=== PATIENT | female | born 1980 | race Caucasian/White ===

== ENCOUNTER 2017-01-05 21:48 | Emergency (ER) | payer BC, MEDICAID ==
[~2017-01-05] VITALS: Ht 154.9 cm; Wt 68.8 kg
[~2017-01-05 21:48] MED LIST: AMIT25TA9 PO; APIDINJ SQ; CHOL50006 PO; CLAR10CA3 PO; DICL1GEL TOPICAL; DICL1GEL7 TOPICAL; GABA300C5 PO; LACTCAP8 PO; META800T81 PO; METHY10 PO; MOBI15TA PO; MULT-135 PO; PERC5TAB12 PO; SYNT175T PO; VENTAER INH
[2017-01-05 22:21] VITALS: BP 109/78; PULSE 89; RESP 18; TEMP 98.1; O2SAT 98
[2017-02-04] MEDS ORDERED: PLAQ200T PO (13:43)
== END 2017-01-05 22:33 | disposition left against medical advice (07) ==
LOC: PHED 21:48
DX: R10.9 Unspecified abdominal pain (principal)
CPT/HCPCS: 99281

== ENCOUNTER 2017-06-25 18:48 | Emergency (ER) | payer MEDICARE, OTHER ==
[~2017-06-25] VITALS: Ht 154.9 cm; Wt 62.7 kg
[~2017-06-25 18:48] MED LIST changes: +CHOL5000 PO; -CHOL50006 PO; -DICL1GEL TOPICAL; -META800T81 PO; -MULT-135 PO; +MULT-206 PO; +SKEL800T21 PO
[2017-06-25 18:56] VITALS: BP 121/63; PULSE 104; RESP 16; TEMP 98.6; O2SAT 98
[2017-06-25] MEDS ORDERED: RAMI10CA PO (19:14)
[2017-06-25] MEDS ORDERED: LIOT5TAB3 PO (19:14)
[2017-06-25] MEDS ORDERED: OMEP40CA2 PO (19:14)
[2017-06-25] MEDS ORDERED: ADDE20 PO (19:14)
[2017-06-25 19:15] VITALS: BP 109/76; PULSE 92; RESP 18; O2SAT 98
[2017-06-25] MEDS ORDERED: SODIUM CHLORIDE 0.9% FLUSH 10 ML FLUSH IVF PRN (20:30)
[2017-06-25] MEDS ORDERED: SODIUM CHLOR 0.9% 1000 ML INJ 1,000 ML IV ONE ×2 (20:30)
--- NOTE | 2017-06-25 20:30 | PD ---
HPI Chief Complaint: Diabetic Time Seen by Provider: 20:19 Travel History International Travel<30 days: No Contact w/Intl Traveler<30days: No Traveled to known affect area: No History of Present Illness HPI 36-year-old female insulin-dependent diabetic presents to the emergency department for complaint of elevated blood sugar of 398 at home and urine ketones. Patient states symptoms began just prior to arrival to the emergency department approximately 2 hours ago. Patient states yesterday she felt well on her blood sugars were controlled this morning she awakened felt well ate her normal breakfast and blood sugars were running around 98 and then around noon time 150. Reports she did not eat any lunch or dinner. Patient states after taking a shower she had taken her insulin pump off and decided to check her blood sugar and that's when she noticed it was elevated. Patient took 4 units of insulin via her insulin pump. Patient did experience some nausea. Patient states in the past 2-3 week she's had upper respiratory infection type symptoms with congestion and cough as well as temperature elevation. Patient reports that her normal temperature runs 96.8 and is been 98-99 which she thinks is consistent with fever. Patient has also noticed some upper abdominal discomfort. Patient denies any shortness of breath. Patient has had no diarrhea or dysuria. PFSH Past Medical History Narrative Medical Diabetes asthma lupus fibromyalgia endometriosis gastroparesis diabetic neuropathy chronic kidney disease hypothyroidism; tubal ligation ; no tobacco use; nursing notes reviewed Arthritis: No Asthma: Yes Heart Rhythm Problems: Yes (HEART MURMUR WHEN YOUNGER) Cancer: No Cardiovascular Problems: Yes High Cholesterol: No Chest Pain: No Congestive Heart Failure: No COPD: No Cerebrovascular Accident: No Diabetes: Yes (INSULIN DEPENDANT) Patient Takes Glucophage: No Diminished Hearing: No Endocrine: Yes Fibromyalgia: Yes Gastrointestinal Disorders: Yes (GASTROPARESIS) Glaucoma: Yes Genitourinary: Yes Headaches: No Hypertension: Yes (120-SYSTOLIC IS HIGH FOR PT) Immune Disorder: No Implanted Vascular Access Dvce: No Kidney Stones: No Musculoskeletal: Yes Neurologic: Yes (NEUROPATHY) Psychiatric: No Reproductive: No Respiratory: Yes Migraines: No Renal Failure: Yes (WHEN ) Seizures: No Sleep Apnea: No Thyroid Disease: Yes (HYPOTHYROIDISM) Tetanus Vaccination: Unknown Influenza Vaccination: Yes ?: Not LMP: 06/10/17 Menopausal: No : 2 Para: 1 : 1 Past Surgical History Abdominal Surgery: No Cardiac Surgery: No Section: Yes (2006) Ear Surgery: No Endocrine Surgery: No Eye Surgery: No Genitourinary Surgery: No Gynecologic Surgery: Yes (LAPROSCOPY FOR ENDOMETROISIS, C SECTION) Neurologic Surgery: No Oral Surgery: No Thoracic Surgery: No Other Surgery: Yes Social History Alcohol Use: Yes (COUPLE OF TIMES PER MONTH) Tobacco Use: No (QUIT 2010) Substance Use: No Allergies-Medications (Allergen,Severity, Reaction): Coded Allergies: insulin isophane (NPH) (Unverified Allergy, Severe, Anaphylaxis, 06/25/17) insulin regular (Unverified Allergy, Severe, Anaphylaxis, 06/25/17) insulin zinc (Unverified Allergy, Severe, Anaphylaxis, 06/25/17) Uncoded Allergies: NUPRIN (Allergy, Unknown, Hives, 08/05/04) Reported Meds & Prescriptions Reported Meds & Active Scripts Active Synthroid (Levothyroxine Sodium) 175 Mcg Tab 175 Mcg PO DAILY Ventolin Hfa 18 GM Inh (Albuterol Sulfate) 90 Mcg/Act Aer 2 Puff INH Q6H PRN Apidra Inj (Insulin Glulisine Inj) 1,000 Unit/10 Ml Vial 50-100 Units SQ DAILY Basal Apidra 1-1.2 units per hour, 1 unit/20 g of carb,1 unit SQ for every 60-100 of blood sugar over 120. Reported Omeprazole 40 Mg Cap 40 Mg PO DAILY Adderall (Amphetamine-Dextroamphetamine) 20 Mg Tab 20 Mg PO BID Avoid late evening doses. Space doses at least 4 to 6 hours if more than once/day dosing. Ramipril 10 Mg Cap 10 Mg PO BID Liothyronine (Liothyronine Sodium) 5 Mcg Tab 5 Mcg PO DAILY [employer] Select (Multivit with Iron-Minerals) 1 Each Tablet 1 Tab PO DAILY Vitamin D3 (Cholecalciferol) 5,000 Unit Cap 5,000 Units PO DAILY Percocet (Oxycodone-Acetaminophen) 5-325 mg Tab 1 Tab PO BID PRN Diclofenac Topical 1% Gel 1 Applic TOPICAL QID Gabapentin 300 Mg Cap 300 Mg PO TID Review of Systems Except as stated in HPI: all other systems reviewed are Neg General / Constitutional: Positive: Fever (according to patient temperature 90.9F), No: Chills Eyes: No: Visual changes HENT: Positive: Congestion, No: Headaches, Neck Pain Cardiovascular: No: Chest Pain or Discomfort Respiratory: Positive: Cough, Shortness of Breath Gastrointestinal: Positive: Nausea, Abdominal Pain (is as similar to what he thinks), No: Vomiting, Diarrhea Genitourinary: Positive: Other (LMP is warm and), No: Urgency, Frequency, Dysuria Musculoskeletal: No: Myalgias, Arthralgias Skin: No Rash Neurologic: No: Weakness, Dizziness Psychiatric: No: Anxiety Endocrine: No: Heat Intolerance Hematologic/Lymphatic: No: Easy Bruising Physical Exam Narrative GENERAL: Well-developed well-nourished female in no acute distress no respiratory distress SKIN: Warm and dry. HEAD: Normocephalic. EYES: No scleral icterus. No injection or drainage. NECK: Supple, trachea midline. No JVD or lymphadenopathy. CARDIOVASCULAR: Regular rate and rhythm without murmurs, gallops, or rubs. RESPIRATORY: Breath sounds equal bilaterally. No accessory muscle use. GASTROINTESTINAL: Abdomen soft, non-tender, nondistended. MUSCULOSKELETAL: No cyanosis, or edema. BACK: Nontender without obvious deformity. No CVA tenderness. Data Data Last Documented VS Vital Signs Date Time Temp Pulse Resp B/P (MAP) Pulse Ox O2 Delivery O2 Flow Rate FiO2 06/25/17 21:12 89 18 105/72 (83) 98 Room Air 06/25/17 18:56 98.6 Orders Orders Complete Blood Count With Diff (06/25/17 20:19) Comprehensive Metabolic Panel (06/25/17 20:19) Magnesium (Mg) (06/25/17 20:19) Beta Hydroxybutyrate (Acetone) (06/25/17 20:19) Urinalysis - C+S If Indicated (06/25/17 20:19) Chest, Single Ap (06/25/17 20:19) Ecg Monitoring (06/25/17 20:19) Iv Access Insert/Monitor (06/25/17 20:19) Oximetry (06/25/17 20:19) NPO (06/25/17 20:19) Sodium Chloride 0.9% Flush (Ns Flush) (06/25/17 20:30) Troponin I (06/25/17 20:19) Lipase (9/30/17 20:19) Ed Urine Pregnancytest Poc (06/25/17 20:19) Sodium Chlor 0.9% 1000 Ml Inj (Ns 1000 M (06/25/17 20:30) Sodium Chlor 0.9% 1000 Ml Inj (Ns 1000 M (06/25/17 20:30) Electrocardiogram (06/25/17 ) Blood Gas Venous Ph (06/25/17 20:19) Blood Glucose (06/25/17 21:18) Labs Laboratory Tests Test 06/25/17 19:40 06/25/17 21:51 White Blood Count 11.6 TH/MM3 Red Blood Count 4.97 MIL/MM3 Hemoglobin 14.7 GM/DL Hematocrit 43.4 % Mean Corpuscular Volume 87.3 FL Mean Corpuscular Hemoglobin 29.6 PG Mean Corpuscular Hemoglobin Concent 34.0 % Red Cell Distribution Width 11.9 % Platelet Count 226 TH/MM3 Mean Platelet Volume 9.2 FL Neutrophils (%) (Auto) 72.9 % Lymphocytes (%) (Auto) 19.9 % Monocytes (%) (Auto) 4.4 % Eosinophils (%) (Auto) 2.5 % Basophils (%) (Auto) 0.3 % Neutrophils # (Auto) 8.5 TH/MM3 Lymphocytes # (Auto) 2.3 TH/MM3 Monocytes # (Auto) 0.5 TH/MM3 Eosinophils # (Auto) 0.3 TH/MM3 Basophils # (Auto) 0.0 TH/MM3 CBC Comment DIFF FINAL Differential Comment Urine Color YELLOW Urine Turbidity CLEAR Urine pH 6.0 Urine Specific [place] 1.033 Urine Protein NEG mg/dL Urine Glucose (UA) 1000 OR GREATER mg/dL Urine Ketones 80 OR GREATER mg/dL Urine Occult Blood TRACE Urine Nitrite NEG Urine Bilirubin NEG Urine Leukocyte Esterase NEG Urine RBC 0-2 /hpf Urine WBC 0-2 /hpf Urine Squamous Epithelial Cells 0-5 /hpf Urine Bacteria OCC /hpf Microscopic Urinalysis Comment CULT NOT INDICATED Blood Urea Nitrogen 19 MG/DL Creatinine 0.70 MG/DL Random Glucose 252 MG/DL Total Protein 7.7 GM/DL Albumin 3.7 GM/DL Calcium Level 8.9 MG/DL Magnesium Level 1.9 MG/DL Alkaline Phosphatase 68 U/L Aspartate Amino Transf (AST/SGOT) 25 U/L Alanine Aminotransferase (ALT/SGPT) 19 U/L Total Bilirubin 0.4 MG/DL Sodium Level 134 MEQ/L Potassium Level 3.8 MEQ/L Chloride Level 99 MEQ/L Carbon Dioxide Level 26.9 MEQ/L Anion Gap 8 MEQ/L Estimat Glomerular Filtration Rate 94 ML/MIN Troponin I LESS THAN 0.02 NG/ML Lipase 85 U/L B-Hydroxybutyrate 1.07 MMOL/L Venous Blood pH 7.37 MDM Medical Decision Making Medical Screen Exam Complete: Yes Emergency Medical Condition: Yes Medical Record Reviewed: Yes Interpretation(s) CBC & BMP Diagram 06/25/17 19:40 Total Protein 7.7, Albumin 3.7, Calcium Level 8.9, Magnesium Level 1.9, Alkaline Phosphatase 68, Aspartate Amino Transf (AST/SGOT) 25, Alanine Aminotransferase (ALT/SGPT) 19, Total Bilirubin 0.4 Vital Signs Date Time Temp Pulse Resp B/P (MAP) Pulse Ox O2 Delivery O2 Flow Rate FiO2 06/25/17 21:12 89 18 105/72 (83) 98 Room Air 06/25/17 20:31 98 06/25/17 19:15 92 18 98 Room Air 06/25/17 19:15 92 18 109/76 (87) 98 Room Air 06/25/17 18:56 98.6 104 16 121/63 (82) 98 Venous pH: 7.37, wnl Differential Diagnosis Uncontrolled diabetes, DKA, electronic disturbance, dehydration, pneumonia Narrative Course Patient given 2 L normal saline bolus had just taken a bolus of insulin from her pump prior to arrival to the emergency department; specimens collected and sent for resulting Venous pH 7.37; patient's serum bicarbonate is not decreased and anion gap is not elevated; urinalysis does shows some ketonuria and Beta hydroxybutyric acid is mildly elevated 1.07 At 10:15 PM patient is clinically improved and states she is 90-95% back to normal is desirous of a trial of oral hydration; this time patient is not in diabetic ketoacidosis. Source of precipitation of ketonuria with mild serum acetone elevation may be reflective of recent upper respiratory infection illness. Patient infiltrate at the emergency department no dizziness no shortness of breath taking oral hydration well states that she is markedly improved is desirous of being discharged to home have discussed putting patient in the hospital for observation for monitoring of metabolic status patient states she is back to her baseline and is desirous of being discharged home and does not want to be placed in observation. Patient states she is very familiar with her diabetic history and is aware that should she develop any vomiting that she would need to return immediately we'll give patient prescription for Zofran for nausea encourage her to monitor her blood sugar more frequently and to return immediately if any change in condition. The patient is agreeable to this as she is not willing to be placed in observation at this time. Diagnosis Primary Impression: Diabetes type 1, uncontrolled Referrals: Primary Care Physician 2 days Patient Instructions: General Instructions Additional Instructions: Follow ADA diet closely monitor blood sugars frequently Follow-up with primary care provider for 2 day recheck Return immediately to the emergency department for nausea vomiting pain fever or any concerns increase fluid hydration Add potassium containing foods and beverages to dietary intake Med/Other Pt SpecificInfo: Prescription(s) given Scripts Ondansetron Odt (Zofran Odt) 4 Mg Tab 4 MG SL Q6HR Y for Nausea/Vomiting, #10 TAB 0 Refills Prov: Meredith Thomas MD 06/25/17 Disposition: 01 DISCHARGE HOME Condition: Stable Meredith Thomas MD Jun 25, 2017 20:30
[2017-06-25 20:31] VITALS: O2SAT 98
[2017-06-25 20:44] LABS: GLUCOSE,URINE 1000 OR GREATER mg/dL (NEG); KETONE, URINE 80 OR GREATER mg/dL (NEG); NITRITE,URINE NEG (NEG)
[2017-06-25 20:45] LABS: AUTOMATED NEUTROPHIL # 8.5 TH/MM3 (1.8-7.7); BASOPHIL % 0.3 % (0.0-2.0); BLOOD, URINE TRACE (NEG); EOSINOPHIL # 0.3 TH/MM3 (0-0.4); EOSINOPHIL % 2.5 % (0.0-4.0); HEMATOCRIT 43.4 % (35.0-46.0); HEMO FLAGS DIFF FINAL; LYMPH % 19.9 % (9.0-44.0); LYMPHOCYTE # 2.3 TH/MM3 (1.0-4.8); MEAN CELL VOLUME 87.3 FL (80.0-100.0); MEAN CORPUSCULAR HEMOGLOBIN 29.6 PG (27.0-34.0); MONO % 4.4 % (0.0-8.0); NEUT % 72.9 % (16.0-70.0); PLATELET COUNT 226 TH/MM3 (150-450); RED BLOOD COUNT 4.97 MIL/MM3 (4.00-5.30); RED CELL DISTRIBUTION WIDTH 11.9 % (11.6-17.2); WHITE BLOOD COUNT 11.6 TH/MM3 (4.0-11.0)
[2017-06-25 20:46] LABS: URINE COLOR YELLOW (YELLW/STRAW)
--- NOTE | 2017-06-25 20:50 | RADRPT ---
EXAM DATE/TIME: 06/25/2017 20:34 [facility] COMPARISON: No previous studies available for comparison. INDICATIONS : Cough. MEDICAL HISTORY : Diabetes mellitus type I. Gastroesophageal reflux disease. Lupus. Gatroperesis. Narcolepsy. Hypot hyroid. Kidney disease. SURGICAL HISTORY : None. ENCOUNTER: Initial ACUITY: 3 weeks PAIN SCORE: 3/10 LOCATION: Left chest FINDINGS: A single view of the chest demonstrates the lungs to be symmetrically aerated without evidence of mas s, infiltrate or effusion. The cardiomediastinal contours are unremarkable. Osseous structures are intact. CONCLUSION: The lungs are clear. Amado Sorensen MD on June 25, 2017 at 20:48 Board Certified Radiologist. This report was verified electronically.
[2017-06-25 20:51] LABS: CHLORIDE 99 MEQ/L (98-107); POTASSIUM 3.8 MEQ/L (3.5-5.1); SODIUM (NA) 134 MEQ/L (136-145)
[2017-06-25 20:55] LABS: ANION GAP 8 MEQ/L (5-15); BICARBONATE 26.9 MEQ/L (21.0-32.0); BLOOD UREA NITROGEN 19 MG/DL (7-18); MAGNESIUM 1.9 MG/DL (1.5-2.5)
[2017-06-25 20:58] LABS: ALT (GPT) 19 U/L (10-53); AST (GOT) 25 U/L (15-37); GLOMERULAR FILTRATION RATE 94 ML/MIN (>89)
[2017-06-25 20:59] LABS: BETA-HYDROXYBUTYRATE 1.07 MMOL/L (0.00-0.39); TOTAL BILIRUBIN ADULT 0.4 MG/DL (0.2-1.0)
[2017-06-25 21:00] LABS: ALKALINE PHOSPHATASE 68 U/L (45-117)
[2017-06-25 21:01] LABS: BACTERIA, URINE OCC /hpf; COMMENT (UR) CULT NOT INDICATED; CULTURE IF INDICATED CULT NOT INDICATED; RBC, URINE 0-2 /hpf (0-3); SQUAMOUS EPITHELIAL CELL URINE 0-5 /hpf (0-5); WBC, URINE 0-2 /hpf (0-5)
[2017-06-25 21:12] VITALS: BP 105/72; PULSE 89; RESP 18; O2SAT 98
--- NOTE | 2017-06-25 22:41 | EKG ---
Date Performed: 06/25/2017 Time Performed: 21:03:36 PTAGE: 36 years EKG: Sinus rhythm LOW QRS VOLTAGE IN EXTREMITY LEADS BORDERLINE ECG PREVIOUS TRACING : 11/07/2012 19.32 No significant change from previous tracing noted. DOCTOR: Jamshid Bill Interpretating Date/Time 06/25/2017 22:40:28
[2017-06-25] MEDS ORDERED: ZOFR4TAB3 SL (22:50)
[2017-06-25 23:02] VITALS: BP 104/74; PULSE 88; RESP 18; O2SAT 98
== END 2017-06-25 23:06 | disposition home or self-care (01) ==
LOC: PHED 18:48
DX: E10.65 Type 1 diabetes mellitus with hyperglycemia (principal); R11.0 Nausea; R10.10 Upper abdominal pain, unspecified; R94.31 Abnormal electrocardiogram [ECG] [EKG]; I10 Essential (primary) hypertension; E03.9 Hypothyroidism, unspecified; Z79.4 Long term (current) use of insulin; Z87.09 Personal history of other diseases of the respiratory system; Z86.79 Personal history of other diseases of the circulatory system; Z87.39 Personal history of other diseases of the musculoskeletal system and connective tissue; Z87.19 Personal history of other diseases of the digestive system; Z86.69 Personal history of other diseases of the nervous system and sense organs; Z87.448 Personal history of other diseases of urinary system
CPT/HCPCS: 71010; 80053; 81001; 82010; 82800; 83690; 83735; 84484; 84703; 85025; 93005; 96360; 96361; 99285; J7030

== ENCOUNTER 2017-10-21 02:43 | Emergency (ER) | payer MEDICAID ==
[~2017-10-21] VITALS: Ht 165.1 cm; Wt 64.0 kg
[~2017-10-21 02:43] MED LIST changes: +ADDE20 PO; -AMIT25TA9 PO; -CLAR10CA3 PO; -LACTCAP8 PO; +LIOT5TAB3 PO; -METHY10 PO; -MOBI15TA PO; +OMEP40CA2 PO; +RAMI10CA PO; -SKEL800T21 PO; +ZOFR4TAB3 SL
[2017-10-21 02:50] VITALS: BP 107/76; PULSE 87; RESP 16; TEMP 98.2; O2SAT 99
[2017-10-21] MEDS ORDERED: SODIUM CHLOR 0.9% 1000 ML INJ 1,000 ML IV ONE ×2 (03:45→05:45)
[2017-10-21] MEDS ORDERED: ONDANSETRON HCL 4 MG/2 ML VIAL IV PUSH ONE (04:00)
[2017-10-21] MEDS ORDERED: PANTOPRAZOLE SODIUM 40 MG VIAL IV PUSH ONE (04:00)
[2017-10-21 04:14] LABS: AUTOMATED NEUTROPHIL # 5.7 TH/MM3 (1.8-7.7); BASOPHIL % 0.5 % (0.0-2.0); EOSINOPHIL # 0.3 TH/MM3 (0-0.4); EOSINOPHIL % 3.4 % (0.0-4.0); HEMATOCRIT 42.6 % (35.0-46.0); HEMOGLOBIN 14.7 GM/DL (11.6-15.3); LYMPH % 32.5 % (9.0-44.0); LYMPHOCYTE # 3.2 TH/MM3 (1.0-4.8); MEAN CELL VOLUME 90.3 FL (80.0-100.0); MEAN CORPUSCULAR HEMOGLOBIN 31.3 PG (27.0-34.0); MEAN CORPUSCULAR HGB CONC 34.6 % (32.0-36.0); MEAN PLATELET VOLUME 9.9 FL (7.0-11.0); MONOCYTE # 0.6 TH/MM3 (0-0.9); NEUT % 57.6 % (16.0-70.0); PLATELET COUNT 239 TH/MM3 (150-450); RED BLOOD COUNT 4.71 MIL/MM3 (4.00-5.30); RED CELL DISTRIBUTION WIDTH 12.7 % (11.6-17.2); WHITE BLOOD COUNT 9.8 TH/MM3 (4.0-11.0)
[2017-10-21 04:51] LABS: ALKALINE PHOSPHATASE 81 U/L (45-117); C-REACTIVE PROTEIN LESS THAN 0.29 MG/DL (0.00-0.30); TOTAL BILIRUBIN ADULT 0.2 MG/DL (0.2-1.0); TROPONIN I LESS THAN 0.02 NG/ML (0.02-0.05)
[2017-10-21 05:07] LABS: ALBUMIN 3.5 GM/DL (3.4-5.0); ALT (GPT) 15 U/L (10-53); AST (GOT) 16 U/L (15-37); BICARBONATE 24.1 MEQ/L (21.0-32.0); BLOOD UREA NITROGEN 14 MG/DL (7-18); CALCIUM 8.4 MG/DL (8.5-10.1); CHLORIDE 103 MEQ/L (98-107); GLOMERULAR FILTRATION RATE 94 ML/MIN (>89); GLUCOSE,RANDOM 300 MG/DL (74-106); LIPASE 90 U/L (73-393); SODIUM (NA) 135 MEQ/L (136-145)
[2017-10-21 05:15] VITALS: BP_SYST 93; BP_SYST 99; BP_DIAS 63; BP_DIAS 71; RESP 16; RESP 18
--- NOTE | 2017-10-21 05:27 | PD ---
HPI Chief Complaint: Abdominal Pain Time Seen by Provider: 02:51 Travel History International Travel<30 days: No Contact w/Intl Traveler<30days: No Traveled to known affect area: No History of Present Illness HPI Patient is a 37-year-old female who tonight while sitting on the toilet having diarrhea severe pain she called her daughter who came and found her lying on the floor passed out from the severe pain abdomen diffuse sudden onset related she thinks to the gastroparesis that she suffers from.. she reports she saw a nurse aide who told her "there was nothing further to do for her". She has lupus but on no medications at this time,, she said she took Plaquenil but developed a severe rash the lasted for 3 months . And she had to be hospitalized. Most of her meds include depression meds and she is on Ritalin as well .. tonight she reports severe abdo pain hypotension and syncope. On arrival she is awake alert with normal vitals,,, her mother and daughter are bedside. Daugther laying in bed with patient, daugther nonplussed [facility] Past Medical History Arthritis: No Asthma: Yes Heart Rhythm Problems: Yes (HEART MURMUR WHEN YOUNGER) Cancer: No Cardiovascular Problems: Yes High Cholesterol: No Chest Pain: No Congestive Heart Failure: No COPD: No Cerebrovascular Accident: No Diminished Hearing: No Endocrine: Yes Fibromyalgia: Yes Gastrointestinal Disorders: Yes (GASTROPARESIS) Glaucoma: Yes Genitourinary: Yes Headaches: No Hypertension: Yes (120-SYSTOLIC IS HIGH FOR PT) Immune Disorder: No Implanted Vascular Access Dvce: No Kidney Stones: No Musculoskeletal: Yes Neurologic: Yes (NEUROPATHY) Psychiatric: No Reproductive: No Respiratory: Yes Migraines: No Renal Failure: Yes (WHEN ) Seizures: No Sleep Apnea: No Thyroid Disease: Yes (HYPOTHYROIDISM) ?: Not Menopausal: No : 2 Para: 1 : 1 Past Surgical History Abdominal Surgery: No Cardiac Surgery: No Section: Yes (2006) Ear Surgery: No Endocrine Surgery: No Eye Surgery: No Genitourinary Surgery: No Gynecologic Surgery: Yes (LAPROSCOPY FOR ENDOMETROISIS, C SECTION) Neurologic Surgery: No Oral Surgery: No Thoracic Surgery: No Other Surgery: Yes Social History Alcohol Use: Yes (COUPLE OF TIMES PER MONTH) Tobacco Use: Yes Substance Use: No Allergies-Medications (Allergen,Severity, Reaction): Coded Allergies: insulin isophane (NPH) (Unverified Allergy, Severe, Anaphylaxis, 06/25/17) insulin regular (Unverified Allergy, Severe, Anaphylaxis, 06/25/17) insulin zinc (Unverified Allergy, Severe, Anaphylaxis, 06/25/17) Uncoded Allergies: NUPRIN (Allergy, Unknown, Hives, 08/05/04) Reported Meds & Prescriptions Reported Meds & Active Scripts Active Zofran Odt (Ondansetron Odt) 4 Mg Tab 4 Mg SL Q6HR PRN Zofran Odt (Ondansetron Odt) 4 Mg Tab 4 Mg SL Q6HR PRN Synthroid (Levothyroxine Sodium) 175 Mcg Tab 175 Mcg PO DAILY Ventolin Hfa 18 GM Inh (Albuterol Sulfate) 90 Mcg/Act Aer 2 Puff INH Q6H PRN Apidra Inj (Insulin Glulisine Inj) 1,000 Unit/10 Ml Vial 50-100 Units SQ DAILY Basal Apidra 1-1.2 units per hour, 1 unit/20 g of carb,1 unit SQ for every 60-100 of blood sugar over 120. Reported Omeprazole 40 Mg Cap 40 Mg PO DAILY Adderall (Amphetamine-Dextroamphetamine) 20 Mg Tab 20 Mg PO BID Avoid late evening doses. Space doses at least 4 to 6 hours if more than once/day dosing. Ramipril 10 Mg Cap 10 Mg PO BID Liothyronine (Liothyronine Sodium) 5 Mcg Tab 5 Mcg PO DAILY [employer] Select (Multivit with Iron-Minerals) 1 Each Tablet 1 Tab PO DAILY Vitamin D3 (Cholecalciferol) 5,000 Unit Cap 5,000 Units PO DAILY Percocet (Oxycodone-Acetaminophen) 5-325 mg Tab 1 Tab PO BID PRN Diclofenac Topical 1% Gel 1 Applic TOPICAL QID Gabapentin 300 Mg Cap 300 Mg PO TID Review of Systems Except as stated in HPI: all other systems reviewed are Neg HENT: Positive: Headaches Cardiovascular: Positive: Syncope Gastrointestinal: Positive: Nausea, Abdominal Pain Physical Exam Narrative GENERAL: Patient is awake alert nontoxic appearing nonseptic appearing SKIN: Warm and dry. HEAD: Atraumatic. Normocephalic. EYES: Pupils equal and round. No scleral icterus. No injection or drainage. ENT: No nasal bleeding or discharge. Mucous membranes pink and moist. NECK: Trachea midline. No JVD. No neck pain or lumbar spine where she had the epidural injection is not red swollen no signs of infection or postprocedure complications CARDIOVASCULAR: Regular rate and rhythm. RESPIRATORY: No accessory muscle use. Clear to auscultation. Breath sounds equal bilaterally. GASTROINTESTINAL: Abdomen positive minimal pain epigastrium all other quadrants are soft and nontender. Mildly decreased bowel sounds in all [place] Soft, non- tender, nondistended. Hepatic and splenic margins not palpable. MUSCULOSKELETAL: Extremities without clubbing, cyanosis, or edema. No obvious deformities. NEUROLOGICAL: Awake and alert. No obvious cranial nerve deficits. Motor grossly within normal limits. Five out of 5 muscle strength in the arms and legs. Normal speech. PSYCHIATRIC: Appropriate mood and affect; insight and judgment normal. Data Data Last Documented VS Vital Signs Date Time Temp Pulse Resp B/P (MAP) Pulse Ox O2 Delivery O2 Flow Rate FiO2 10/21/17 06:35 10/21/17 05:15 76 16 92 18 10/21/17 02:50 98.2 99 Orders Orders Complete Blood Count With Diff (10/21/17 03:25) Comprehensive Metabolic Panel (10/21/17 03:25) Ckmb (Isoenzyme) Profile (10/21/17 03:25) Troponin I (10/21/17 03:25) C-Reactive Protein (Crp) (10/21/17 03:25) Lipase (10/21/17 03:25) Urinalysis - C+S If Indicated (10/21/17 03:25) Sodium Chlor 0.9% 1000 Ml Inj (Ns 1000 M (10/21/17 03:45) Pantoprazole Inj (Protonix Inj) (10/21/17 04:00) Ondansetron Inj (Zofran Inj) (10/21/17 04:00) Orthostatic Vital Signs (10/21/17 05:07) Sodium Chlor 0.9% 1000 Ml Inj (Ns 1000 M (10/21/17 05:45) Ed Discharge Order (10/21/17 06:38) Electrocardiogram (10/21/17 03:08) Labs Laboratory Tests Test 10/21/17 03:00 10/21/17 04:00 White Blood Count 9.8 TH/MM3 Red Blood Count 4.71 MIL/MM3 Hemoglobin 14.7 GM/DL Hematocrit 42.6 % Mean Corpuscular Volume 90.3 FL Mean Corpuscular Hemoglobin 31.3 PG Mean Corpuscular Hemoglobin Concent 34.6 % Red Cell Distribution Width 12.7 % Platelet Count 239 TH/MM3 Mean Platelet Volume 9.9 FL Neutrophils (%) (Auto) 57.6 % Lymphocytes (%) (Auto) 32.5 % Monocytes (%) (Auto) 6.0 % Eosinophils (%) (Auto) 3.4 % Basophils (%) (Auto) 0.5 % Neutrophils # (Auto) 5.7 TH/MM3 Lymphocytes # (Auto) 3.2 TH/MM3 Monocytes # (Auto) 0.6 TH/MM3 Eosinophils # (Auto) 0.3 TH/MM3 Basophils # (Auto) 0.0 TH/MM3 CBC Comment DIFF FINAL Differential Comment Blood Urea Nitrogen 14 MG/DL Creatinine 0.70 MG/DL Random Glucose 300 MG/DL Total Protein 7.0 GM/DL Albumin 3.5 GM/DL Calcium Level 8.4 MG/DL Alkaline Phosphatase 81 U/L Aspartate Amino Transf (AST/SGOT) 16 U/L Alanine Aminotransferase (ALT/SGPT) 15 U/L Total Bilirubin 0.2 MG/DL Sodium Level 135 MEQ/L Potassium Level 3.9 MEQ/L Chloride Level 103 MEQ/L Carbon Dioxide Level 24.1 MEQ/L Anion Gap 8 MEQ/L Estimat Glomerular Filtration Rate 94 ML/MIN Total Creatine Kinase 62 U/L Troponin I LESS THAN 0.02 NG/ML C-Reactive Protein LESS THAN 0.29 MG/DL Lipase 90 U/L Urine Color YELLOW Urine Turbidity CLEAR Urine pH 6.5 Urine Specific [place] 1.026 Urine Protein TRACE mg/dL Urine Glucose (UA) 1000 mg/dL Urine Ketones 10 mg/dL Urine Occult Blood NEG Urine Nitrite NEG Urine Bilirubin NEG Urine Urobilinogen LESS THAN 2.0 MG/DL Urine Leukocyte Esterase NEG Urine RBC 1 /hpf Urine WBC LESS THAN 1 /hpf Urine Squamous Epithelial Cells <1 /hpf Urine Hyaline Casts 4 /lpf Urine Granular Casts 1 /lpf Urine Mucus FEW /lpf Microscopic Urinalysis Comment CULT NOT INDICATED MDM Medical Decision Making Medical Screen Exam Complete: Yes Emergency Medical Condition: Yes Differential Diagnosis Differential diagnosis includes volume depletion versus gastroparesis gastroenteritis hypotension Narrative Course Patient is given a liter and half 1500 total NS fluid Zofran and Pepcid . she feels much better her labs are within normal limits . no elevated white count , no anemia , no signs of dehydration , Her orthostatic vitals are done to evaluate her cardiovascular status and she is within normal limits .Pt will be discharged to follow-up as an outpatient Diagnosis Primary Impression: Vasovagal episode Additional Impressions: Abdominal pain Qualified Codes: R10.9 - Unspecified abdominal pain Hypotension Qualified Codes: I95.9 - Hypotension, unspecified Scripts Ondansetron Odt (Zofran Odt) 4 Mg Tab 4 MG SL Q6HR Y for Nausea/Vomiting, #12 TAB 0 Refills Prov: Jovan Moon MD 10/21/17 Disposition: DISCHARGE HOME Condition: Good Jovan Moon MD Oct 21, 2017 05:27
[2017-10-21 05:33] LABS: BILIRUBIN, URINE NEG (NEG); BLOOD, URINE NEG (NEG); GLUCOSE,URINE 1000 mg/dL (NEG); HYALINE CAST, URINE 4 /lpf (RARE); KETONE, URINE 10 mg/dL (NEG); MUCUS URINE FEW /lpf (OCC); NITRITE,URINE NEG (NEG); PH, URINE 6.5 (5.0-8.5); SQUAMOUS EPITHELIAL CELL URINE <1 /hpf (0-5); URINE COLOR YELLOW (YELLW/STRAW); URINE LEUKOCYTE ESTERASE NEG (NEG)
[2017-10-21] MEDS ORDERED: ZOFR4TAB3 SL (05:53)
--- NOTE | 2017-10-21 08:33 | EKG ---
Date Performed: 10/21/2017 Time Performed: 03:08:57 PTAGE: 37 years EKG: Sinus rhythm NORMAL ECG PREVIOUS TRACING : 06/25/2017 21.03 No change from previous tracing noted. DOCTOR: Jamshid Bill Interpretating Date/Time 10/21/2017 08:32:39
== END 2017-10-21 06:38 | disposition home or self-care (01) ==
LOC: NEPC 02:43
DX: R55 Syncope and collapse (principal); R10.9 Unspecified abdominal pain; I95.9 Hypotension, unspecified; M32.9 Systemic lupus erythematosus, unspecified; J45.909 Unspecified asthma, uncomplicated; R01.1 Cardiac murmur, unspecified; M79.7 Fibromyalgia; I10 Essential (primary) hypertension; Z87.19 Personal history of other diseases of the digestive system
CPT/HCPCS: 80053; 81001; 82550; 83690; 84484; 85025; 86140; 93005; 96361; 96374; 96375; 99284; C9113; J2405; J7030

== ENCOUNTER 2017-12-13 14:43 | Inpatient (IN) | payer MEDICAID ==
[~2017-12-13] VITALS: Ht 154.9 cm; Wt 56.3 kg
[2017-12-13 15:34] VITALS: BP 128/82; PULSE 132; RESP 16; TEMP 99.2; O2SAT 100
[2017-12-13 17:57] LABS: AUTOMATED NEUTROPHIL # 5.7 TH/MM3 (1.8-7.7); BASOPHIL % 0.5 % (0.0-2.0); EOSINOPHIL # 0.2 TH/MM3 (0-0.4); EOSINOPHIL % 2.4 % (0.0-4.0); HEMATOCRIT 43.9 % (35.0-46.0); HEMOGLOBIN 14.9 GM/DL (11.6-15.3); LYMPH % 25.7 % (9.0-44.0); LYMPHOCYTE # 2.2 TH/MM3 (1.0-4.8); MEAN CELL VOLUME 91.1 FL (80.0-100.0); MEAN CORPUSCULAR HGB CONC 34.1 % (32.0-36.0); MEAN PLATELET VOLUME 8.9 FL (7.0-11.0); MONO % 6.5 % (0.0-8.0); MONOCYTE # 0.6 TH/MM3 (0-0.9); NEUT % 64.9 % (16.0-70.0); PLATELET COUNT 241 TH/MM3 (150-450); RED BLOOD COUNT 4.82 MIL/MM3 (4.00-5.30); WHITE BLOOD COUNT 8.7 TH/MM3 (4.0-11.0)
[2017-12-13 18:03] LABS: PROTHROMBIN TIME - PATIENT 10.2 SEC (9.8-11.6)
[2017-12-13 18:10] LABS: BILIRUBIN, URINE NEG (NEG); BLOOD, URINE NEG (NEG); GLUCOSE,URINE 1000 mg/dL (NEG); KETONE, URINE NEG (NEG); NITRITE,URINE NEG (NEG); PH, URINE 6.5 (5.0-8.5); SQUAMOUS EPITHELIAL CELL URINE 1 /hpf (0-5); URINE COLOR YELLOW (YELLW/STRAW); URINE LEUKOCYTE ESTERASE NEG (NEG)
[2017-12-13 18:13] LABS: BICARBONATE 30.3 MEQ/L (21.0-32.0); CALCIUM 9.2 MG/DL (8.5-10.1); CREATININE 0.68 MG/DL (0.50-1.00)
--- NOTE | 2017-12-14 00:21 | RADRPT ---
EXAM DATE/TIME: 12/13/2017 23:37 [facility] COMPARISON: No previous studies available for comparison. INDICATIONS : Radiculopathy. Weakness, incontinence, and pain. MEDICAL HISTORY : Diabetes mellitus type 1. Renal failure, chronic. SURGICAL HISTORY : Tubal ligation. section. Laparascopy, Lymphadenectomy ENCOUNTER: Initial ACUITY: 4-6 months PAIN SCORE: 10/10 LOCATION: Right lower back region. TECHNIQUE: Multiplanar multisequence MRI of the lumbar spine was performed without contrast. FINDINGS: The most caudal appearing lumbar vertebra is numbered as L5. There is straightening of the lumbar lo rdosis. Vertebral body height is maintained. There is T2 prolongation in the marrow on both sides o f the L5-S1 interspace. There is narrowing of the L5-S1 interspace. The conus is at the level of T1 2. T12-L1: The thecal sac has a normal diameter. No evidence of disc bulge or protrusion. The neural foramina are patent bilaterally. L1-L2: The thecal sac has a normal diameter. No evidence of disc bulge or protrusion. The neural foramina are patent bilaterally. L2-L3: The thecal sac has a normal diameter. No evidence of disc bulge or protrusion. The neural foramina are patent bilaterally. L3-L4: The thecal sac has a normal diameter. No evidence of disc bulge or protrusion. The neural foramina are patent bilaterally. L4-L5: The thecal sac has a normal diameter. No evidence of disc bulge or protrusion. The neural foramina are patent bilaterally. L5-S1: Abnormal. There is a large central right paracentral epidural impression with a soft tissue density which measures 1.2 cm in AP dimension and 1.8 cm in superior/inferior extent. The signal characteris tics differ from the disc suggesting that this represents an extruded fragment. This extends inferio r to the level of the disc space and causes significant indentation on the thecal sac, right greater than left. There is deviation and compression of the S1 nerve root as it courses through the bony sp inal canal. CONCLUSION: 1. Large disc extrusion at L5-S1 central and right paracentral, extending inferior to the level of th e disc space and causing significant neural impingement upon the S1 nerve root as it courses through the bony spinal canal. Amado Sorensen MD on December 14, 2017 at 0:15 Board Certified Radiologist. This report was verified electronically.
--- NOTE | 2017-12-14 01:04 | PD ---
HPI . Neuro symptoms/deficits Chief Complaint: Neuro Symptoms/ Deficits Time Seen by Provider: 22:22 Travel History International Travel<30 days: No Contact w/Intl Traveler<30days: No Traveled to known affect area: No History of Present Illness HPI 37-year-old female with previously diagnosed herniated disc L5-S1 via MRI in August, with having chronic right-sided sciatica and intermittent urinary incontinence, notes worsening of her weakness, having difficulty standing up on her toes on her right foot recently, and worsening of incontinence symptoms. Patient also has a history of stress incontinence long-standing. Patient denies any fever chills sweats. Patient was referred to neurosurgery with delays in appointment secondary to insurance issues as per patient, and was told that she was not a surgical candidate at that time. Patient has since had worsening of her symptoms as noted above. [facility] Past Medical History Narrative Medical Past medical history reviewed Arthritis: No Asthma: Yes Heart Rhythm Problems: Yes (HEART MURMUR WHEN YOUNGER) Cancer: No Cardiovascular Problems: Yes High Cholesterol: No Chest Pain: No Congestive Heart Failure: No COPD: No Cerebrovascular Accident: No Diabetes: Yes Patient Takes Glucophage: No Diminished Hearing: No Endocrine: Yes Fibromyalgia: Yes Gastrointestinal Disorders: Yes (GASTROPARESIS) Glaucoma: Yes Genitourinary: Yes Headaches: No Hypertension: Yes (120-SYSTOLIC IS HIGH FOR PT) Immune Disorder: No Implanted Vascular Access Dvce: No Kidney Stones: No Medical other: Yes (bulging discs) Musculoskeletal: Yes Neurologic: Yes (NEUROPATHY) Psychiatric: No Reproductive: No Respiratory: Yes Migraines: No Renal Failure: Yes (WHEN ) Seizures: No Sleep Apnea: No Thyroid Disease: Yes (HYPOTHYROIDISM) ?: Unknown Menopausal: No : 2 Para: 1 : 1 Past Surgical History Abdominal Surgery: No Cardiac Surgery: No Section: Yes (2006) Ear Surgery: No Endocrine Surgery: No Eye Surgery: No Genitourinary Surgery: No Gynecologic Surgery: Yes (LAPROSCOPY FOR ENDOMETROISIS, C SECTION) Neurologic Surgery: No Oral Surgery: No Thoracic Surgery: No Other Surgery: Yes Social History Alcohol Use: Yes (COUPLE OF TIMES PER MONTH) Tobacco Use: Yes Substance Use: No Allergies-Medications (Allergen,Severity, Reaction): Coded Allergies: insulin isophane (NPH) (Unverified Allergy, Severe, Anaphylaxis, 06/25/17) insulin regular (Unverified Allergy, Severe, Anaphylaxis, 06/25/17) insulin zinc (Unverified Allergy, Severe, Anaphylaxis, 06/25/17) Uncoded Allergies: NUPRIN (Allergy, Unknown, Hives, 08/05/04) Reported Meds & Prescriptions Reported Meds & Active Scripts Active Zofran Odt (Ondansetron Odt) 4 Mg Tab 4 Mg SL Q6HR PRN Zofran Odt (Ondansetron Odt) 4 Mg Tab 4 Mg SL Q6HR PRN Synthroid (Levothyroxine Sodium) 175 Mcg Tab 175 Mcg PO DAILY Ventolin Hfa 18 GM Inh (Albuterol Sulfate) 90 Mcg/Act Aer 2 Puff INH Q6H PRN Apidra Inj (Insulin Glulisine Inj) 1,000 Unit/10 Ml Vial 50-100 Units SQ DAILY Basal Apidra 1-1.2 units per hour, 1 unit/20 g of carb,1 unit SQ for every 60-100 of blood sugar over 120. Reported Omeprazole 40 Mg Cap 40 Mg PO DAILY Adderall (Amphetamine-Dextroamphetamine) 20 Mg Tab 20 Mg PO BID Avoid late evening doses. Space doses at least 4 to 6 hours if more than once/day dosing. Ramipril 10 Mg Cap 10 Mg PO BID Liothyronine (Liothyronine Sodium) 5 Mcg Tab 5 Mcg PO DAILY [employer] Select (Multivit with Iron-Minerals) 1 Each Tablet 1 Tab PO DAILY Vitamin D3 (Cholecalciferol) 5,000 Unit Cap 5,000 Units PO DAILY Percocet (Oxycodone-Acetaminophen) 5-325 mg Tab 1 Tab PO BID PRN Diclofenac Topical 1% Gel 1 Applic TOPICAL QID Gabapentin 300 Mg Cap 300 Mg PO TID Narrative Medication Allergies and medications reviewed Review of Systems Except as stated in HPI: all other systems reviewed are Neg General / Constitutional: No: Fever Eyes: No: Visual changes HENT: No: Headaches Cardiovascular: No: Chest Pain or Discomfort Respiratory: No: Shortness of Breath Gastrointestinal: No: Abdominal Pain Genitourinary: Positive: Incontinence, No: Dysuria Musculoskeletal: Positive: Weakness, Pain Skin: No Rash Neurologic: No: Weakness Psychiatric: No: Depression Endocrine: No: Polydipsia Hematologic/Lymphatic: No: Easy Bruising Physical Exam Narrative GENERAL: Awake alert oriented 3 no acute SKIN: Warm and dry. Color is normal diaphoresis sinus pallor no rashes HEAD: Atraumatic. Normocephalic. EYES: Pupils equal and round. No scleral icterus. No injection or drainage. ENT: No nasal bleeding or discharge. Mucous membranes pink and moist. NECK: Trachea midline. No JVD. Supple nontender full range of motion CARDIOVASCULAR: Regular rate and rhythm. S1-S2 no murmurs rubs or gallops RESPIRATORY: No accessory muscle use. Clear to auscultation. Breath sounds equal bilaterally. GASTROINTESTINAL: Abdomen soft, non-tender, nondistended. Hepatic and splenic margins not palpable. MUSCULOSKELETAL: Extremities without clubbing, cyanosis, or edema. No obvious deformities. NEUROLOGICAL: Awake and alert. No obvious cranial nerve deficits. Motor grossly within normal limits. Reflexes 2+ equal bilateral 4. Patient has some difficulty standing on her right foot/toes. PSYCHIATRIC: Appropriate mood and affect; insight and judgment normal. Data Data Last Documented VS Vital Signs Date Time Temp Pulse Resp B/P (MAP) Pulse Ox O2 Delivery O2 Flow Rate FiO2 12/13/17 15:34 99.2 132 16 128/82 (97) 100 Orders Orders Complete Blood Count With Diff (12/13/17 15:37) Basic Metabolic Panel (Bmp) (12/13/17 15:37) Coag Profile (12/13/17 15:37) Urinalysis - C+S If Indicated (12/13/17 15:37) Mri L Spine W/O Contrast (12/13/17 ) Radiology Film Requests (12/14/17 ) Ed Discharge Order (12/14/17 01:13) Mandatory Outpatient Referral (12/14/17 01:13) Labs Laboratory Tests Test 12/13/17 17:00 White Blood Count 8.7 TH/MM3 Red Blood Count 4.82 MIL/MM3 Hemoglobin 14.9 GM/DL Hematocrit 43.9 % Mean Corpuscular Volume 91.1 FL Mean Corpuscular Hemoglobin 31.0 PG Mean Corpuscular Hemoglobin Concent 34.1 % Red Cell Distribution Width 13.0 % Platelet Count 241 TH/MM3 Mean Platelet Volume 8.9 FL Neutrophils (%) (Auto) 64.9 % Lymphocytes (%) (Auto) 25.7 % Monocytes (%) (Auto) 6.5 % Eosinophils (%) (Auto) 2.4 % Basophils (%) (Auto) 0.5 % Neutrophils # (Auto) 5.7 TH/MM3 Lymphocytes # (Auto) 2.2 TH/MM3 Monocytes # (Auto) 0.6 TH/MM3 Eosinophils # (Auto) 0.2 TH/MM3 Basophils # (Auto) 0.0 TH/MM3 CBC Comment DIFF FINAL Differential Comment Prothrombin Time 10.2 SEC Prothromb Time International Ratio 1.0 RATIO Activated Partial Thromboplast Time 27.2 SEC Urine Color YELLOW Urine Turbidity CLEAR Urine pH 6.5 Urine Specific [place] 1.029 Urine Protein 30 mg/dL Urine Glucose (UA) 1000 mg/dL Urine Ketones NEG mg/dL Urine Occult Blood NEG Urine Nitrite NEG Urine Bilirubin NEG Urine Urobilinogen LESS THAN 2.0 MG/DL Urine Leukocyte Esterase NEG Urine RBC 1 /hpf Urine WBC LESS THAN 1 /hpf Urine Squamous Epithelial Cells 1 /hpf Microscopic Urinalysis Comment CULT NOT INDICATED Blood Urea Nitrogen 15 MG/DL Creatinine 0.68 MG/DL Random Glucose 218 MG/DL Calcium Level 9.2 MG/DL Sodium Level 137 MEQ/L Potassium Level 3.9 MEQ/L Chloride Level 100 MEQ/L Carbon Dioxide Level 30.3 MEQ/L Anion Gap 7 MEQ/L Estimat Glomerular Filtration Rate 97 ML/MIN [facility] Medical Decision Making Medical Screen Exam Complete: Yes Emergency Medical Condition: Yes Medical Record Reviewed: Yes Differential Diagnosis Disc herniation, nerve root compression, cauda equina Narrative Course MRI lumbar spine reveals large disc protrusion L5-S1 level consistent with prior MRI with nerve root for foraminal compression which is consistent with patient's symptomatology. Case discussed with Dr Worthy, from neurosurgery, weakness and incontinence recurrent and progressive discussed, recommends expedited follow-up and pain management. Patient is currently being cared for through pain management, has had epidural steroid injections previously. Patient ambulating with assistance of cane to bathroom. Patient given copy of her MRI on CD. Case discussed with case management, expedited follow-up order completed. note: Upon receiving patient's discharge instructions from nurse, as well as MRI copy on CD, as well as the MRI reading by radiology printed for the patient , the patient then refused to leave the ED until given a visual tour of her MRI despite a critically ill patient in an ambulance stretcher outside of her door. The 14-year-old daughter of the patient was awake and lying in the ED stretcher, was instructed not to move by the patient until she had a tour of her MRI. ED senior storage administrator Matilde notified. Diagnosis Primary Impression: Lumbar disc disease with radiculopathy Referrals: Tony Worthy MD Patient Instructions: General Instructions, Lumbar Disc Herniation (ED), Lumbar Radiculopathy (ED) Additional Instructions: Follow-up with pain management, follow-up with neurosurgery/spine surgery. Return for worsening Disposition: 01 DISCHARGE HOME Condition: Stable Tio Barth MD Dec 14, 2017 01:04
[2017-12-14] MEDS ORDERED: predniSONE 20 MG TAB PO ONE (04:15)
[2017-12-14] MEDS ORDERED: DEXAMETHASONE SOD PHOS 20 MG/5 ML VIAL IV PUSH ONE (04:15)
[2017-12-14] MEDS ORDERED: SODIUM CHLORIDE 0.9% FLUSH 10 ML FLUSH IV FLUSH PRN (04:15)
[2017-12-14] MEDS ORDERED: DIAZEPAM 10 MG TAB PO ONE (04:15)
[2017-12-14] MEDS ORDERED: KETOROLAC TROMETHAMINE 30 MG/ML (IVP) VIAL IV PUSH ONE (04:15)
[2017-12-14] MEDS ORDERED: NALOXONE HCL 0.4 MG/ML AMP IV PUSH PRN (04:15)
[2017-12-14 08:12] VITALS: BP 101/68; PULSE 75; RESP 19; TEMP 98.4; O2SAT 99
[2017-12-14 08:55] VITALS: BP 96/60; PULSE 74; RESP 18; TEMP 97.9; O2SAT 99
[2017-12-14] MEDS: SODIUM CHLORIDE 0.9% FLUSH 10 ML FLUSH IV FLUSH SCH ×2 (09:58→21:12)
[2017-12-14] MEDS ORDERED: DEXAMETHASONE SOD PHOS 4 MG/ML VIAL IV PUSH SCH ×2 (10:00→16:00)
[2017-12-14 13:20] VITALS: BP 105/62; PULSE 70; RESP 12; TEMP 97.8; O2SAT 96
--- NOTE | 2017-12-14 13:51 | HHI.HP ---
[facility] Service [facility] Primary Care Physician Non-Staff Admission Diagnosis Lumbar radiculopathy Diagnoses: Chief Complaint: back pain, weakness, incontinence Travel History International Travel<30 Days: No Contact w/Intl Traveler <30 Da: No Traveled to Known Affected Are: No History of Present Illness Written by Hannah Calderon, acting as scribe for Dr. Bowser on 12/14/17 at 13:40. 37-year-old female with history of diabetes, hypertension, hypothyroidism, chronic back pain, herniated disc, sciatica, neuropathy, presents with worsening low back pain, weakness, and incontinence. The patient reports she was diagnosed with herniated disc of L5-S1 back in August when she developed low back pain with paresthesias to the right lower extremity. She also reports intermittent urinary incontinence since then. She has not been able to follow up with neurosurgery secondary to insurance barriers, however did get a consultation from a neurosurgeon in [place] who told her they will not operate because of her diabetes. She has been seeing pain management Dr. Cline, and has received steroids injections. She has also been going to physical therapy. Recently she has been experiencing worsening low back pain since Monday 12/11, located diffusely across lumbar paraspinous muscles with radiation into the right buttocks and down the back of the right leg. She also reports weakness of the right leg, and was unable to stand on her toes Tuesday night as she has been able to do previously. She also reports worsening and more frequent urinary incontinence with occasional paresthesias in the groin. She states occasionally the toilet paper feels "foreign". She denies any recent significant injury, but 2 days ago when walking down the steps, she missed a few steps and stumbled. She has no other medical complaints at this time including no fevers/chills, headache, neck pain, chest pain, shortness of breath, abdominal pain, nausea/ vomiting, or diarrhea. Upon arrival to the ED, lumbar spine MRI showed large disc extrusion at L5-S1 central and right paracentral, extending inferior to the level of the disc space and causing significant neural impingement upon the S1 nerve root. ER discussed with neurosurgeon Dr. Worthy, recommended discharge home with close follow up, however patient did not agree with discharge and worried about establishing follow up, therefore patient admitted to observation with neurology and neurosurgery evaluation pending. Review of Systems Except as stated in HPI: all other systems reviewed are Neg Past Family Social History Past Medical History diabetes hypertension hypothyroidism asthma chronic back pain herniated disc sciatica neuropathy gastroparesis Past Surgical History laparoscopic surgery for endometriosis epidural injections Reported Medications Zofran Odt (Ondansetron Odt) 4 Mg Tab 4 Mg SL Q6HR PRN Zofran Odt (Ondansetron Odt) 4 Mg Tab 4 Mg SL Q6HR PRN Synthroid (Levothyroxine Sodium) 175 Mcg Tab 175 Mcg PO DAILY Ventolin Hfa 18 GM Inh (Albuterol Sulfate) 90 Mcg/Act Aer 2 Puff INH Q6H PRN Apidra Inj (Insulin Glulisine Inj) 1,000 Unit/10 Ml Vial 50-100 Units SQ DAILY Basal Apidra 1-1.2 units per hour, 1 unit/20 g of carb,1 unit SQ for every 60-100 of blood sugar over 120. Omeprazole 40 Mg Cap 40 Mg PO DAILY Adderall (Amphetamine-Dextroamphetamine) 20 Mg Tab 20 Mg PO BID Avoid late evening doses. Space doses at least 4 to 6 hours if more than once/day dosing. Ramipril 10 Mg Cap 10 Mg PO BID Liothyronine (Liothyronine Sodium) 5 Mcg Tab 5 Mcg PO DAILY [employer] Select (Multivit with Iron-Minerals) 1 Each Tablet 1 Tab PO DAILY Vitamin D3 (Cholecalciferol) 5,000 Unit Cap 5,000 Units PO DAILY Percocet (Oxycodone-Acetaminophen) 5-325 mg Tab 1 Tab PO BID PRN Diclofenac Topical 1% Gel 1 Applic TOPICAL QID Gabapentin 300 Mg Cap 300 Mg PO TID Allergies: Coded Allergies: insulin isophane (NPH) (Unverified Allergy, Severe, Anaphylaxis, 06/25/17) insulin regular (Unverified Allergy, Severe, Anaphylaxis, 06/25/17) insulin zinc (Unverified Allergy, Severe, Anaphylaxis, 06/25/17) Uncoded Allergies: NUPRIN (Allergy, Unknown, Hives, 08/05/04) Active Ordered Medications Current Medications Medications (Trade) Dose Ordered Sig/Yenny Route Start Time Stop Time Status Last Admin (NS Flush) 2 ml UNSCH PRN IV FLUSH 12/14/17 04:15 (NS Flush) 2 ml BID IV FLUSH 12/14/17 09:00 12/14/17 09:58 (Narcan Inj) 0.4 mg UNSCH PRN IV PUSH 12/14/17 04:15 (Decadron Inj) 4 mg Q6H IV PUSH 12/14/17 16:00 Family History Family history positive for diabetes, kidney disease, hyperlipidemia, glaucoma Social History Quit smoking tobacco in 2010 Occasional alcohol use, few times per month Denies any illicit drug use Physical Exam Vital Signs Vital Signs Date Time Temp Pulse Resp B/P (MAP) Pulse Ox O2 Delivery O2 Flow Rate FiO2 12/14/17 08:59 12/14/17 08:12 98.4 75 19 101/68 (79) 99 Room Air 12/13/17 15:34 99.2 132 16 128/82 (97) 100 Physical Exam GENERAL: This is a well-nourished, well-developed patient, in no apparent distress. SKIN: No rashes, ecchymoses or lesions. Cool and dry. HEAD: Atraumatic. Normocephalic. No temporal or scalp tenderness. EYES: Pupils equal round and reactive. Extraocular motions intact. No scleral icterus. No injection or drainage. ENT: Nose without bleeding, purulent drainage or septal hematoma. Throat without erythema, tonsillar hypertrophy or exudate. Uvula midline. Airway patent. NECK: Trachea midline. No JVD or lymphadenopathy. Supple, nontender, no meningeal signs. CARDIOVASCULAR: Regular rate and rhythm without murmurs, gallops, or rubs. RESPIRATORY: Clear to auscultation. Breath sounds equal bilaterally. No wheezes , rales, or rhonchi. GASTROINTESTINAL: Abdomen soft, non-tender, nondistended. No hepato-splenomegaly , or palpable masses. No guarding. MUSCULOSKELETAL: Extremities without clubbing, cyanosis, or edema. No joint tenderness, effusion, or edema noted. No calf tenderness. Negative Homans sign bilaterally. NEUROLOGICAL: Awake and alert. Cranial nerves II through XII intact. Motor and sensory grossly within normal limits. Five out of 5 muscle strength in all muscle groups. Normal speech. Laboratory Laboratory Tests Test 12/13/17 17:00 White Blood Count 8.7 Red Blood Count 4.82 Hemoglobin 14.9 Hematocrit 43.9 Mean Corpuscular Volume 91.1 Mean Corpuscular Hemoglobin 31.0 Mean Corpuscular Hemoglobin Concent 34.1 Red Cell Distribution Width 13.0 Platelet Count 241 Mean Platelet Volume 8.9 Neutrophils (%) (Auto) 64.9 Lymphocytes (%) (Auto) 25.7 Monocytes (%) (Auto) 6.5 Eosinophils (%) (Auto) 2.4 Basophils (%) (Auto) 0.5 Neutrophils # (Auto) 5.7 Lymphocytes # (Auto) 2.2 Monocytes # (Auto) 0.6 Eosinophils # (Auto) 0.2 Basophils # (Auto) 0.0 CBC Comment DIFF FINAL Differential Comment Prothrombin Time 10.2 Prothromb Time International Ratio 1.0 Activated Partial Thromboplast Time 27.2 Urine Color YELLOW Urine Turbidity CLEAR Urine pH 6.5 Urine Specific [place] 1.029 Urine Protein 30 Urine Glucose (UA) 1000 Urine Ketones NEG Urine Occult Blood NEG Urine Nitrite NEG Urine Bilirubin NEG Urine Urobilinogen LESS THAN 2.0 Urine Leukocyte Esterase NEG Urine RBC 1 Urine WBC LESS THAN 1 Urine Squamous Epithelial Cells 1 Microscopic Urinalysis Comment CULT NOT INDICATED Blood Urea Nitrogen 15 Creatinine 0.68 Random Glucose 218 Calcium Level 9.2 Sodium Level 137 Potassium Level 3.9 Chloride Level 100 Carbon Dioxide Level 30.3 Anion Gap 7 Estimat Glomerular Filtration Rate 97 Result Diagram: 12/13/17 1700 12/13/17 170 Caprini VTE Risk Assessment Caprini VTE Risk Assessment: No/Low Risk (score <= 1) Caprini Risk Assessment Model Point Value = 1 Point Value = 2 Point Value = 3 Point Value = 5 Age 41-60 Minor surgery BMI > 25 kg/m2 Swollen legs Varicose veins or History of unexplained or recurrent spontaneous Oral contraceptives or hormone replacement Sepsis (< 1 month) Serious lung disease, including pneumonia (< 1 month) Abnormal pulmonary function Acute myocardial infarction Congestive heart failure (< 1 month) History of inflammatory bowel disease Medical patient at bed rest Age 61-74 Arthroscopic surgery Major open surgery (> 45 min) Laparoscopic surgery (> 45 min) Malignancy Confined to bed (> 72 hours) Immobilizing plaster cast Central venous access Age >= 75 History of VTE Family history of VTE Factor V Leiden Prothrombin [id number] Lupus anticoagulant Anticardiolipin antibodies Elevated serum homocysteine Heparin-induced thrombocytopenia Other congenital or acquired thrombophilia Stroke (< 1 month) Elective arthroplasty Hip, pelvis, or leg fracture Acute spinal cord injury (< 1 month) Prophylaxis Regimen Total Risk Factor Score Risk Level Prophylaxis Regimen 0-1 Low Early ambulation 2 Moderate Order ONE of the following: *Sequential Compression Device (SCD) *Heparin 5000 units SQ BID 3-4 Higher Order ONE of the following medications: *Heparin 5000 units SQ TID *Enoxaparin/Lovenox 40 mg SQ daily (WT < 150 kg, CrCl > 30 mL/min) *Enoxaparin/Lovenox 30 mg SQ daily (WT < 150 kg, CrCl > 10-29 mL/min) *Enoxaparin/Lovenox 30 mg SQ BID (WT < 150 kg, CrCl > 30 mL/min) AND/OR *Sequential Compression Device (SCD) 5 or more Highest Order ONE of the following medications: *Heparin 5000 units SQ TID (Preferred with Epidurals) *Enoxaparin/Lovenox 40 mg SQ daily (WT < 150 kg, CrCl > 30 mL/min) *Enoxaparin/Lovenox 30 mg SQ daily (WT < 150 kg, CrCl > 10-29 mL/min) *Enoxaparin/Lovenox 30 mg SQ BID (WT < 150 kg, CrCl > 30 mL/min) AND *Sequential Compression Device (SCD) Assessment and Plan Assessment and Plan 37-year-old female with history of diabetes, hypertension, hypothyroidism, asthma, chronic back pain, herniated disc, sciatica, neuropathy, presents with worsening low back pain, weakness, and incontinence. Lumbar Radiculopathy with Disc Protrusion: Lumbar spine MRI showed large disc extrusion at L5-S1 central and right paracentral, extending inferior to the level of the disc space and causing significant neural impingement upon the S1 nerve root. -Started on steroids with IV Decadron 4mg q6h -Pain control with tylenol prn, IV toradol prn -Consult neurology -Consult neurosurgery -Consult PT Hypertension: BP currently borderline low -RN to update med rec, will restart meds once updated -monitor BP, adjust antihypertensives as needed Diabetes Mellitus: with reported allergy to novolin/insulin -will restart home meds once med rec updated -monitor Accu-checks Hypothyroidism: chronic -will restart home meds once med rec updated Asthma: chronic, not in exacerbation -continue albuterol prn DVT Prophylaxis: teds/SCDs; avoid chemoprophylaxis until evaluated by neurosurgery This note was transcribed by ISREAL Ortega. I, Dr. Kary Bowser personally performed the history, physical exam, and medical decision making; and confirmed the accuracy of the information in the transcribed note. Authenticated by Dr. Kary Bowser on 12/14/17 at 13:40. Discussed Condition With Patient, RN Hannah Calderon PA-C Dec 14, 2017 13:51 Kary Bowser MD Dec 14, 2017 14:38
[2017-12-14] MEDS ORDERED: DEXTROSE 50% IN WATER 50 ML VIAL(D50) IV PUSH PRN (14:00)
[2017-12-14] MEDS ORDERED: KETOROLAC TROMETHAMINE 30 MG/ML (IVP) VIAL IV PUSH PRN (14:00)
[2017-12-14] MEDS ORDERED: GLUCAGON 1 MG/ML VIAL OTHER PRN (14:00)
[2017-12-14] MEDS ORDERED: ACETAMINOPHEN 325 MG TAB PO PRN ×2 (14:00→17:00)
[2017-12-14 15:40] VITALS: BP 112/69; PULSE 91; RESP 12; TEMP 97.5; O2SAT 100
[2017-12-14] MEDS ORDERED: MAGNESIUM HYDROXIDE SUSP 30 ML CUP PO PRN (17:00)
[2017-12-14] MEDS ORDERED: RESP: ALBUTEROL 2.5 MG/3 ML NEB (PRN) NEB (17:00)
[2017-12-14] MEDS ORDERED: ONDANSETRON HCL 4 MG/2 ML VIAL IV PUSH PRN (17:00)
[2017-12-14] MEDS ORDERED: ALUMINUM/MAGNESIUM/SIMETH 30 ML CUP PO PRN (17:00)
[2017-12-14] MEDS ORDERED: BISACODYL 10 MG SUPP RECTAL PRN (17:00)
[2017-12-14] MEDS ORDERED: LACTULOSE SYRUP 20 GM/30 ML CUP PO PRN (17:00)
[2017-12-14] MEDS ORDERED: SENNOSIDES 8.6 MG TAB PO PRN (17:00)
--- NOTE | 2017-12-14 17:53 | MB ---
cc: Tony Worthy MD DATE: 12/14/2017 REASON FOR CONSULTATION: Low back pain with right radiculopathy. HISTORY OF PRESENT ILLNESS: This is a 37-year-old female with a 6-month history of low back pain with radiation to the right leg with numbness in the plantar aspect of the feet, right more than left; however, the pain is mostly in the right side. She has undergone conservative management including physical therapy and interventional pain management without relief. Symptoms have progressed and she also saw a neurosurgeon a couple of weeks ago in [place], and she relates to me that he informed her that she likely would benefit from surgery, but he would not operate on her given her diabetes. She has had intermittent urinary incontinence for the past 4 or 5 months and the last 3 days, also noticed that whenever she tries to stand on her toes, her right foot gives out on her. She has been walking with a limp and uses a cane. She presented to the emergency room early this morning. An MRI scan was obtained, which reveals a large disk herniation at the L5-S1 level, eccentric to the right side with moderate spinal stenosis. There is some disk degeneration and endplate changes noted also. She had a previous MRI scan in August 2017 and compared to that, there appears to have been an increase in size of the disk herniation. She relates to me that she cannot live with the current level of discomfort. She has been using Percocet, usually 3 tablets a day. She was also placed on oral and IV steroids, which is not helping with her pain. She and her mother are requesting that we undertake surgical intervention. She also relates chronic history of some neck discomfort, but this is intermittent with intermittent numbness in her hands. PAST MEDICAL HISTORY: Type 1 juvenile diabetes mellitus, hypertension, hypothyroidism, chronic back pain, asthma, , laparoscopic surgery for endometriosis, neuropathy. MEDICATIONS: Albuterol inhaler 2 puffs q. 6 hours p.r.n., amphetamine/dextroamphetamine 20 mg b.i.d., vitamin D 5000 units daily, gabapentin 300 mg t.i.d., insulin units daily, Synthroid 175 mcg daily, multivitamins daily, omeprazole 40 mg daily, Zofran 4 mg q. 6 hours sublingual p.r.n., Percocet 5/325 one q. 8 hours p.r.n., ramipril 100 mg b.i.d. ALLERGIES: INSULIN NPH, INSULIN REGULAR, INSULIN ZINC, NUPRIN. SOCIAL HISTORY: She is unemployed, is a previous teacher. She is . She is here with her mother and 10-year-old daughter. She is a former smoker, usually has a couple of alcoholic beverages. LABORATORY DATA: White blood cell count 8.7, hemoglobin 14.9, platelet count of 241. PT 10.2, INR 1.0, PTT 27.2. Sodium 137, potassium 3.9, BUN 15, creatinine 0.68, glucose 218. Urinalysis with 30 protein and 1000 glucose, negative leukocyte esterase and less than 1 white blood cells. REVIEW OF SYSTEMS: Pertinent positives as mentioned in the history of present illness, otherwise negative. PHYSICAL EXAMINATION: VITAL SIGNS: Temperature 97.5, pulse is 70, respiratory rate 12, blood pressure 112/69, oxygen saturation 96% on room air. HEENT: Head normocephalic, atraumatic. NECK: Supple. CHEST: Clear bilaterally. HEART: Regular rate and rhythm, normal S1, S2. ABDOMEN: Soft, nontender, positive bowel sounds. EXTREMITIES: No cyanosis, clubbing or edema. SKIN: No rashes or any ecchymosis or bruises. GENERAL: This is a young, female who is lying in bed, writing notes and also working on a laptop in no acute distress. NEUROLOGIC: She is awake, alert. She is oriented x 3. Cranial nerves are grossly intact. Motor strength to the upper extremities 5/5. In the lower extremities, she has give-away weakness in right leg because of pain, especially the dorsiflexion, which is about 4/5, and EHL is 3/5, plantar flexion is 5/5. On the left side, she is 5/5. Light touch sensation, she relates some decrease in the right S1 dermatome. Negative Babinski. Speech is fluent. IMPRESSION: 1. Chronic low back pain with right L5 and S1 radiculopathy from an L5-S1 disk herniation, which has progressed. She has failed conservative treatment measures. 2. Insulin-dependent diabetes mellitus. 3. Asthma. 4. Hypothyroidism. PLAN: Discussed the options of continued pain management with physical therapy. We also discussed the option of surgical intervention, which would involve a right L5 and S1 microdiscectomy, along with the risks and benefits involved. No guarantees given. It is possible that she may not improve or be worse off after surgery along with associated complications. Given her medical comorbidities, in particular insulin-dependent diabetes mellitus and asthma, she is at moderate risk for complications. This patient and her mother had multiple questions, which were answered to their satisfaction, and they are requesting that we proceed and accordingly, we will see if we can get her on the schedule in the next couple of days. In the meantime, would recommend pain control as well as a physical therapy, continue with lower extremity strengthening exercises. I would also recommend DVT prophylaxis. MD DANAE Lizarraga/AG , 04:59 PM , 05:51 PM
--- NOTE | 2017-12-14 17:56 | RADRPT ---
EXAM DATE/TIME: 12/14/2017 17:38 [facility] COMPARISON: No previous studies available for comparison. INDICATIONS : Evaluate for pneumonia, pneumothorax, or communicable disease. Pre op back surgery. MEDICAL HISTORY : Asthma. SURGICAL HISTORY : None. ENCOUNTER: Initial ACUITY: 1 day PAIN SCORE: 0/10 LOCATION: Bilateral chest FINDINGS: PA and lateral views of the chest demonstrate the lungs to be symmetrically aerated without evidence of mass, infiltrate or effusion. The cardiomediastinal contours are unremarkable. Osseous structure s are intact. CONCLUSION: No acute disease. Lui Jones MD FACR on December 14, 2017 at 17:53 Board Certified Radiologist. This report was verified electronically.
--- NOTE | 2017-12-14 19:07 | MB ---
cc: dS Roe MD, PhD DATE: REASON FOR CONSULTATION: Lumbar radiculopathy. HISTORY OF PRESENT ILLNESS: Ms. Maldonado is a very nice 37-year-old female who has a history of lumbar spondylosis with pain who relates over the past week increasing difficulties with weakness of the right foot, as well as low back pain. She noted that she developed more numbness in the right leg and the plantar aspect of the feet bilaterally, more on the right. She had difficulty with weakness of the right leg as well. Difficulty standing on her toes. She has been under care with a neurosurgeon in [place] who suggested surgery, but did not recommend proceeding at this time due to her diabetes. She has had some trouble with pain down the left leg as well. She did have an MRI of the lumbar spine, which is reviewed, showing a fairly prominent disk protrusion, herniation at L5-S1 to the right side, which is increased in size from a previous MRI of August. PAST MEDICAL HISTORY: Type 1 juvenile diabetes, hypertension, hypothyroidism, asthma, , laparoscopy, endometriosis, neuropathy. MEDICINES AT HOME: Dextroamphetamine, albuterol, gabapentin, Percocet, Zofran p.r.n., ramipril. ALLERGIES: INSULIN NPH, INSULIN REGULAR, INSULIN ZINC, AND NUPRIN. NEUROLOGIC EXAMINATION: Alert and oriented x 3. Cranial nerves intact. Motor exam normal in the upper extremities. She is weak in the right leg, mainly with dorsiflexion, which is 4/5 in the right foot, plantar flexion 5/5, normal strength to the left side as well. IMPRESSION: Lumbar spondylosis at L5-S1 with radiculopathy, also has insulin-dependent diabetes. RECOMMENDATION: At the present, physical therapy. The patient has been evaluated as well by Dr. Tony Worthy of the neurosurgery service. He discussed the option of surgical intervention as well. At the present time, will resume gabapentin 300 mg b.i.d. to try to help with the pain also. Sd Roe MD, PhD MONIQUE/AG , 06:50 PM , 07:05 PM
[2017-12-14 19:30] VITALS: BP 126/75; PULSE 81; RESP 15; TEMP 97.8; O2SAT 96
[2017-12-14 20:00] VITALS: O2SAT 100
--- NOTE | 2017-12-14 20:28 | EKG ---
Date Performed: 12/14/2017 Time Performed: 19:20:58 PTAGE: 37 years EKG: Sinus rhythm NORMAL ECG No significant change from prior electrocardiogram. PREVIOUS TRACING : 10/21/2017 03.08 DOCTOR: Tobi Rodriguez Interpretating Date/Time 12/14/2017 20:26:14
[2017-12-14] MEDS: DOCUSATE SODIUM 50 MG/SENNA 8.6 MG TAB PO SCH (21:11)
[2017-12-14] MEDS: GABAPENTIN 300 MG CAP PO SCH (21:11)
[2017-12-14] MEDS: oxyCODONE/ACETAMINOPHEN 5 MG/325 MG TAB PO PRN (21:12)
[2017-12-15] VITALS: BP 99/53; PULSE 71; RESP 16; TEMP 98.6; O2SAT 98
[2017-12-15] MEDS: oxyCODONE/ACETAMINOPHEN 5 MG/325 MG TAB PO PRN ×4 (03:37→21:31)
[2017-12-15 04:00] VITALS: BP 106/64; PULSE 75; RESP 20; TEMP 98.5; O2SAT 98
[2017-12-15 08:18] VITALS: BP 99/69; PULSE 82; RESP 20; TEMP 97.6; O2SAT 98
[2017-12-15 09:08] LABS: AUTOMATED NEUTROPHIL # 8.4 TH/MM3 (1.8-7.7); BASOPHIL % 0.2 % (0.0-2.0); EOSINOPHIL # 0.1 TH/MM3 (0-0.4); EOSINOPHIL % 0.7 % (0.0-4.0); HEMATOCRIT 38.9 % (35.0-46.0); HEMOGLOBIN 13.2 GM/DL (11.6-15.3); LYMPHOCYTE # 2.6 TH/MM3 (1.0-4.8); MEAN CELL VOLUME 89.9 FL (80.0-100.0); MEAN CORPUSCULAR HEMOGLOBIN 30.4 PG (27.0-34.0); MEAN CORPUSCULAR HGB CONC 33.8 % (32.0-36.0); MEAN PLATELET VOLUME 9.1 FL (7.0-11.0); MONO % 7.1 % (0.0-8.0); MONOCYTE # 0.9 TH/MM3 (0-0.9); PLATELET COUNT 229 TH/MM3 (150-450); RED BLOOD COUNT 4.33 MIL/MM3 (4.00-5.30)
[2017-12-15] MEDS: DOCUSATE SODIUM 50 MG/SENNA 8.6 MG TAB PO SCH ×2 (09:12→21:25)
[2017-12-15] MEDS: GABAPENTIN 300 MG CAP PO SCH ×3 (09:12→18:12)
[2017-12-15] MEDS: SODIUM CHLORIDE 0.9% FLUSH 10 ML FLUSH IV FLUSH SCH ×2 (09:13→21:25)
[2017-12-15 09:37] LABS: BICARBONATE 24.9 MEQ/L (21.0-32.0); CALCIUM 8.9 MG/DL (8.5-10.1); CREATININE 0.71 MG/DL (0.50-1.00)
[2017-12-15] MEDS ORDERED: INSULIN GLULISINE SQ SCH (12:15)
--- NOTE | 2017-12-15 13:53 | HHI.NSPN ---
(Jourdan De León) History Chief Complaint: Right posterior leg pain. (Jourdan De León) Interval History This is a 37-year-old female with a 6-month history of low back pain with radiation to the right leg with numbness in the plantar aspect of the feet, right more than left; however, the pain is mostly in the right side. She has undergone conservative management including physical therapy and interventional pain management without relief. Symptoms have progressed and she also saw a neurosurgeon a couple of weeks ago in [place], and she relates to me that he informed her that she likely would benefit from surgery, but he would not operate on her given her diabetes. She has had intermittent urinary incontinence for the past 4 or 5 months and the last 3 days, also noticed that whenever she tries to stand on her toes, her right foot gives out on her. She has been walking with a limp and uses a cane. She presented to the emergency room early this morning. An MRI scan was obtained, which reveals a large disk herniation at the L5-S1 level, eccentric to the right side with moderate spinal stenosis. There is some disk degeneration and endplate changes noted also. She had a previous MRI scan in August 2017 and compared to that, there appears to have been an increase in size of the disk herniation. She relates to me that she cannot live with the current level of discomfort. She has been using Percocet, usually 3 tablets a day. She was also placed on oral and IV steroids, which is not helping with her pain. She and her mother are requesting that we undertake surgical intervention. She also relates chronic history of some neck discomfort, but this is intermittent with intermittent numbness in her hands. 12/15/17: Pt complains of pain in RLE in posterior aspect. The pain has improved some with current treatment but still very uncomfortable. She wants to proceed with surgery tomorrow. (Jourdan De León) Review of Systems General: Negative for: fever, chills, insomnia Respiratory: Negative for: shortness of breath, cough, sputum Cardiovascular: Negative for: chest pain Gastrointestinal: Positive for: constipation, Negative for: nausea, vomitting, diarrhea (Jourdan De León) Exam Results Vital Signs Date Time Temp Pulse Resp B/P (MAP) Pulse Ox O2 Delivery O2 Flow Rate FiO2 12/15/17 08:18 97.6 82 20 99/69 (79) 98 12/15/17 07:40 Room Air (Jourdan De León) Physical Examination General: Pt resting in bed with pain but tolerable currently. Eyes: Pupils equal. Sclera anicteric. Resp: CTA bilaterally. Heart: NSR no murmurs Abd: Soft positive bs Skin: No cyanosis or erythema Muscle: Moves LEs with some limitation with right knee extension secondary to worsening pain. Dorsiflexion 4/5, EHL 3/5. Neuro: Pt awake and alert. Follows commands well. Speech clear and appropriate. (Jourdan De León) Lab, Micro, Other Results Last Impressions Chest X-Ray 12/14/17 0000 Signed Impressions: Service Date/Time: Thursday, December 14, 2017 17:38 - CONCLUSION: No acute disease. Lui Jones MD FACR Lumbar Spine MRI 12/13/17 0000 Signed Impressions: Service Date/Time: Wednesday, December 13, 2017 23:37 - CONCLUSION: 1. Large disc extrusion at L5-S1 central and right paracentral, extending inferior to the level of the disc space and causing significant neural impingement upon the S1 nerve root as it courses through the bony spinal canal. Amado Sorensen MD Laboratory Tests Test 12/14/17 17:50 12/15/17 08:42 Random Glucose 578 MG/DL 325 MG/DL Human Chorionic Gonadotropin, Quant LESS THAN 1 MIU/ML White Blood Count 12.0 TH/MM3 Red Blood Count 4.33 MIL/MM3 Hemoglobin 13.2 GM/DL Hematocrit 38.9 % Mean Corpuscular Volume 89.9 FL Mean Corpuscular Hemoglobin 30.4 PG Mean Corpuscular Hemoglobin Concent 33.8 % Red Cell Distribution Width 13.0 % Platelet Count 229 TH/MM3 Mean Platelet Volume 9.1 FL Neutrophils (%) (Auto) 70.0 % Lymphocytes (%) (Auto) 22.0 % Monocytes (%) (Auto) 7.1 % Eosinophils (%) (Auto) 0.7 % Basophils (%) (Auto) 0.2 % Neutrophils # (Auto) 8.4 TH/MM3 Lymphocytes # (Auto) 2.6 TH/MM3 Monocytes # (Auto) 0.9 TH/MM3 Eosinophils # (Auto) 0.1 TH/MM3 Basophils # (Auto) 0.0 TH/MM3 CBC Comment DIFF FINAL Differential Comment Blood Urea Nitrogen 18 MG/DL Creatinine 0.71 MG/DL Calcium Level 8.9 MG/DL Sodium Level 136 MEQ/L Potassium Level 3.8 MEQ/L Chloride Level 102 MEQ/L Carbon Dioxide Level 24.9 MEQ/L Anion Gap 9 MEQ/L Estimat Glomerular Filtration Rate 92 ML/MIN (Jourdan De León) Medical Decision Making Impression and Plan A: 1. Chronic low back pain with right L5 and S1 radiculopathy from an L5-S1 disk herniation, which has progressed. She has failed conservative treatment measures. 2. Insulin-dependent diabetes mellitus. 3. Asthma. 4. Hypothyroidism. PLAN: Discussed a L5/S1 laminectomy with microdiscectomy with pt and risks and benefits, as well as alternatives with the patient. Risks involved with surgery include but not limited to bleeding infection muscle weakness voice hoarseness difficulty swallowing heart attack stroke blood clots scar tissue formation, disc reherniation among others. Patient understands the procedure as well as the risk involved and she is requesting to proceed and she was therefore scheduled accordingly for tomorrow morning. Patient will be made n.p.o. after midnight. (Jourdan De León) Attending Statement The exam, history, and the medical decision-making described in the above note were completed with the assistance of the mid-level provider. I reviewed and agree with the findings presented. I attest that I had a [id number] encounter with the patient on the same day, and personally performed and documented my assessment and findings in the medical record. Medical service relates holding off on lumbar spine surgery until cleared by endocrinology. (Tony Worthy MD) Jourdan De León Dec 15, 2017 13:53 Tony Worthy MD Dec 15, 2017 18:08
[2017-12-15] MEDS ORDERED: VANCOMYCIN INJ 1,000 MG in SODIUM CHLOR 0.9% 250 ML INJ 250 ML IV SCH (14:30)
[2017-12-15 16:00] VITALS: PULSE 115; RESP 17; TEMP 98.4; O2SAT 98
--- NOTE | 2017-12-15 17:26 | HHI.PR ---
Subjective Remarks pt says pain is somewhat improved. no cp or sob. says allergic to aspar, levemir. says humulin r, lantus okay. she has lispro pum 1-1.2 untis/hr with mealtime bolus. she says for previous surgeries she has continued insulin pump , having explained to nursing, anaesthesia how to use the pump. Objective Vital Signs Date Time Temp Pulse Resp B/P (MAP) Pulse Ox O2 Delivery O2 Flow Rate FiO2 12/15/17 16:59 18 12/15/17 08:18 97.6 82 20 99/69 (79) 98 12/15/17 07:40 98 Room Air 12/15/17 04:00 Room Air 12/15/17 04:00 98.5 75 20 106/64 (78) 98 12/15/17 00:00 Room Air 12/15/17 00:00 98.6 71 16 99/53 (68) 98 12/14/17 20:00 100 12/14/17 20:00 Room Air 12/14/17 19:30 97.8 81 15 126/75 (92) 96 I/O 12/14/17 12/14/17 12/14/17 12/15/17 12/15/17 12/15/17 06:59 14:59 22:59 06:59 14:59 22:59 Intake Total 1950 ml Balance 1950 ml Intake Oral 1920 ml IV Total 30 ml # Voids 3 Result Diagram: 12/15/17 0842 12/15/17 0842 Objective Remarks GENERAL: pt lying in bed. nad. AAox3 SKIN: Warm and dry. HEAD: Normocephalic. EYES: No scleral icterus. No injection or drainage. NECK: Supple, trachea midline. No JVD or lymphadenopathy. CARDIOVASCULAR: Regular rate and rhythm without murmurs, gallops, or rubs. RESPIRATORY: Breath sounds equal bilaterally. No accessory muscle use. GASTROINTESTINAL: Abdomen soft, non-tender, nondistended. MUSCULOSKELETAL: No cyanosis, or edema. BACK: Nontender without obvious deformity. No CVA tenderness. A/P Assessment and Plan 37-year-old female with history of diabetes, hypertension, hypothyroidism, asthma, chronic back pain, herniated disc, sciatica, neuropathy, presents with worsening low back pain, weakness, and incontinence. //Lumbar Radiculopathy with Disc Protrusion: Lumbar spine MRI showed large disc extrusion at L5-S1 central and right paracentral, extending inferior to the level of the disc space and causing significant neural impingement upon the S1 nerve root. -Started on steroids with IV Decadron 4mg q6h -Pain control with tylenol prn, IV toradol prn -Consult neurology -Consult neurosurgery -Consult PT =pt ff/ appreciate neurosurg assist. //Hypertension: BP currently borderline low -RN to update med rec, will restart meds once updated -monitor BP, adjust antihypertensives as needed //Diabetes Mellitus: with reported allergy to novolin/insulin -will restart home meds once med rec updated -monitor Accu-checks =patient report anaphylaxis to standard insulin. says humulin okay. has lispro pump on right now rate of 1-1.2 units per hour with mealtime bolus. as patient may need surgery, will consult endocrinology. avoid steroids if possible //Hypothyroidism: chronic -will restart home meds. //Asthma: chronic, not in exacerbation -continue albuterol prn DVT Prophylaxis: teds/SCDs; avoid chemoprophylaxis pending possible surgery Discharge Planning PATIENT HAS INSULIN PUMP - DO NOT UNDERGO SURGERY WITHOUT ENDOCRINE CLEARING PATIENT. pending surgery Tyson Clarke MD Dec 15, 2017 17:26
[2017-12-15 20:00] VITALS: BP 108/69; PULSE 100; RESP 16; TEMP 98.7; O2SAT 98
[2017-12-15] MEDS ORDERED: PANTOPRAZOLE SOD 40 MG DELAYED RELEASE TAB PO ONE (21:00)
[2017-12-16] VITALS (8 sets, daily range): BP systolic 86–121; BP diastolic 54–73; PULSE 74–84; RESP 16–20; TEMP 97–98.6; O2SAT 97–100
[2017-12-16] MEDS: oxyCODONE/ACETAMINOPHEN 5 MG/325 MG TAB PO PRN ×3 (03:42→18:30)
[2017-12-16] MEDS ORDERED: SODIUM CHLORID 0.9% 500 ML INJ 500 ML IV ONE (05:00)
[2017-12-16] MEDS: SODIUM CHLORIDE 0.9% FLUSH 10 ML FLUSH IV FLUSH SCH ×2 (08:54→20:04)
[2017-12-16] MEDS: DOCUSATE SODIUM 50 MG/SENNA 8.6 MG TAB PO SCH ×2 (08:54→20:24)
[2017-12-16] MEDS: PANTOPRAZOLE SOD 40 MG DELAYED RELEASE TAB PO SCH (09:25)
[2017-12-16] MEDS: GABAPENTIN 300 MG CAP PO SCH ×3 (09:26→18:29)
[2017-12-16] MEDS ORDERED: GLYCOPYRROLATE 1 MG/5 ML SYRINGE IV PUSH ONE (12:00)
[2017-12-16] MEDS ORDERED: LACTATED RINGER'S 1000 ML INJ 2,000 ML IV ONE (12:00)
[2017-12-16] MEDS ORDERED: ROCURONIUM INJ 50 MG/5 ML SYRINGE IV PUSH ONE (12:00)
[2017-12-16] MEDS ORDERED: PHENYLEPH/NS 1000 MCG/10 ML SYR IV ONE (12:00)
[2017-12-16] MEDS ORDERED: PROPOFOL 200 MG/20 ML AMP IV ONE (12:00)
[2017-12-16] MEDS ORDERED: NEOSTIGMINE 5 MG/5 ML SYRINGE IV PUSH ONE (12:00)
[2017-12-16] MEDS ORDERED: ePHEDrine/NS 25 MG/5 ML SYRINGE IV ONE (12:00)
[2017-12-16] MEDS ORDERED: LIDOCAINE HCL 1% PF 5 ML SYRINGE OTHER ONE (12:00)
[2017-12-16] MEDS ORDERED: ONDANSETRON HCL 4 MG/2 ML VIAL IV ONE (12:00)
[2017-12-16] MEDS ORDERED: VANCOMYCIN HCL 1000 MG VIAL ONE ×2 (12:15→12:57)
[2017-12-16] MEDS ORDERED: THROMBIN (TOPICAL) 5,000 UNIT VIAL ONE (12:15)
[2017-12-16] MEDS ORDERED: GELFOAM SIZE 100 ONE (12:16)
[2017-12-16] MEDS ORDERED: methylPREDNISolone ACETATE 40 MG/ML VIAL ONE (12:16)
[2017-12-16] MEDS ORDERED: BUPIVACAINE/EPINEPHRINE 0.5% PF 30 ML VIAL ONE (12:16)
[2017-12-16] MEDS ORDERED: POVIDONE IODINE 5% (ANTISEPSIS KIT) 4 APPLICATIONS EACH NARE PRN (12:45)
[2017-12-16] MEDS ORDERED: CHLORHEXIDINE GLUCONATE 2 % 1 PACK (2 CLOTHS) TOPICAL PRN (12:45)
[2017-12-16] MEDS ORDERED: LACTATED RINGER'S 1000 ML IV PRN (12:45)
[2017-12-16] MEDS ORDERED: SODIUM CHLORID 0.9% 500 ML IV PRN (12:45)
[2017-12-16] MEDS ORDERED: METOPROLOL TARTRATE 25 MG TAB PO PRN (12:45)
[2017-12-16] MEDS ORDERED: SODIUM CHLOR 0.9% 250 ML INJ 250 ML ONE (12:57)
--- NOTE | 2017-12-16 14:31 | RADRPT ---
EXAM DATE/TIME: 12/16/2017 13:09 [facility] COMPARISON: No previous studies available for comparison. INDICATIONS : L5-S1 lumbar laminectomy. Level localization. MEDICAL HISTORY : Diabetes mellitus type I. SURGICAL HISTORY : None. ENCOUNTER: Initial ACUITY: 4 - 6 days PAIN SCORE: Non-responsive. LOCATION: Lumbar spine. FINDINGS: A single lateral view of the lumbar spine was performed. There is normal alignment of the vertebral bodies without evidence of subluxation. Vertebral body height and disc space height is maintained. CONCLUSION: Lateral fluoroscopic image demonstrates temporary probe overlying the posterior elements at superior L5 level. Jourdan Magallanes MD on December 16, 2017 at 14:28 Board Certified Radiologist. This report was verified electronically.
--- NOTE | 2017-12-16 14:39 | PD.CONS ---
History of Present Illness Service Endocrinology Consult Requested By Dr. Clarke Reason for Consult Patient with Allergies to insulin Primary Care Physician Non-Staff Diagnoses: (1) Diabetes type 1, uncontrolled History of Present Illness This is a 37 year old lady with a 27 year history of diabetes which has been complicated by Retinopathy, gastroparesis, PNP and CKD who has been on insulin pump now for about 15 years off and on. She is currently on a [employer] Insulin pump and is admitted for a Discectomy. She has a history of Anaphylactic shock when exposed to Novolin and novolog insulins in the past. Endocrinology is consulted for management of Diabetes during this admission. On questioning she reports her last HBa1c was about 10 %, she reports this is mainly attributable to her recent exposure to systemic steriods as part of her management for her disc issues (L5/S1 per her report). Otherwise she has no requent history of hypoglycemia. She does have a threshold that can be as low as 30 mg/dl and typically is warned by neuroglycopenic symptoms. She does not have adrenergic symptoms anymore. Otherwise she has placed herself on a 150 % temporary basal rate to control her blood sugars during this hospital visit. She is scheduled for a discectomy as I understand it which she understands will take about 90 minutes. Her current pump settings are as follows: Apidra Insulin Basal Rates in units /hr: 12AM: 1.1 , 3AM: 1.0 u, 8AM: 1.2, ICR: !: 20 grams, ISF: 12AM 1: 60 mg/dl and 3PM: 1:100 mg/dl with target of 120-120 AIT: 4 hours Review of Systems Constitutional: COMPLAINS OF: Weight loss Respiratory: COMPLAINS OF: Shortness of breath (with activity) Cardiovascular: COMPLAINS OF: Dyspnea on Exertion Gastrointestinal: COMPLAINS OF: Nausea (Hx of gastroparesis and several food intolerances including lactose, fructose, sucrose, sucralose. ), Vomiting (see previously under nausea) Except as stated in HPI: all other systems reviewed are Neg (Symptoms mainly related to her diabetes and past medical history. Currently dominated by her disck hernia symptoms. She has also had some numbness on her hands. ) Past Family Social History Allergies: Coded Allergies: insulin isophane (NPH) (Unverified Allergy, Severe, Anaphylaxis, 06/25/17) insulin regular (Unverified Allergy, Severe, Anaphylaxis, 06/25/17) insulin zinc (Unverified Allergy, Severe, Anaphylaxis, 06/25/17) Uncoded Allergies: NUPRIN (Allergy, Unknown, Hives, 08/05/04) Past Medical History T1DM, diabetic reinopathy, gastroparesis, Monika's disease with hypothyroidism, L5/S1 disk hernia, SLE, Hx of hypotension, , Laparoscopy, Endometriosis, Tuba ligation and pre-cancerous colon polyps, GERD Past Surgical History , laparoscopy, tuba ligation Reported Medications Out pateitn medications per patient: synthoid 175 mcg PO QD, Cytomel 5 mcg PO QD , Ramipril 5 mg PO QD, Percoset 5 PO BID PRn pain, Addaral 20 mg PO QD, Gabapentin 300 mg PO QHS and 100 mg PO QD. Active Ordered Medications See chart Family History is one of 3 girls and has one half brother. 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 Physical Exam Vital Signs Vital Signs Date Time Temp Pulse Resp B/P (MAP) Pulse Ox O2 Delivery O2 Flow Rate FiO2 12/16/17 12:00 97.0 82 18 121/69 (86) 99 12/16/17 08:21 97.7 77 20 98/63 (75) 100 12/16/17 07:15 100 Room Air 12/16/17 06:15 109/73 (85) 12/16/17 04:00 97.7 74 18 86/56 (66) 98 12/16/17 00:12 98.6 83 18 101/58 (72) 97 12/16/17 00:12 97 Room Air 12/15/17 20:30 98 Room Air 12/15/17 20:00 98.7 100 16 108/69 (82) 98 12/15/17 16:59 18 12/15/17 16:00 98.4 115 17 98 Physical Exam GENERAL: This is a well-nourished, well-developed patient, in no apparent distress. Patient is laying in bed awaiting call to surgery. SKIN: No rashes, ecchymoses or lesions. Cool and dry. HEAD: Atraumatic. Normocephalic. No temporal or scalp tenderness. EYES: Extraocular motions intact. No scleral icterus. No injection or drainage. ENT: Nose without bleeding, purulent drainage or septal hematoma. Airway patent. NECK: Trachea midline. No JVD or lymphadenopathy. Thyroid is palpable but not enlarged. No nodules palpable. CARDIOVASCULAR: Regular rate and rhythm without murmurs, gallops, or rubs. RESPIRATORY: Clear to auscultation. Breath sounds equal bilaterally. No wheezes , rales, or rhonchi. GASTROINTESTINAL: Abdomen soft, non-tender, nondistended. No hepato-splenomegaly , or palpable masses. No guarding. MUSCULOSKELETAL: Extremities without clubbing, cyanosis, or edema. No joint tenderness, effusion, or edema noted. No calf tenderness. . NEUROLOGICAL: Awake and alert. Cranial nerves II through XII intact. Normal speech. Laboratory Laboratory Tests Test 12/16/17 11:32 Random Glucose 67 Result Diagram: 12/15/17 0842 12/16/17 1132 Assessment and Plan Assessment and Plan Uncontrolled DM type 1 on Insulin pump: I have reveiwed her pump settings at this point her finger stick blood glucose was 67 by [facility] but in the 80's by her own meter and she was not having symptoms. We have requested a stat serum glucose level. I have in the itnerim stopped her temporary basal rate till her results was to come back. Otherwise I have discussed the sylvia and intraoperative management with her and Dr. Clarke. At this point recommend if she is not dealing with hypoglycemia to just continue with the current basal rate and use a sliding sclae if needed during surgery although I do feel she would be O.K. for these 2 hours of the proceedure. Otherwise I will be available to adjust her pump again once she is out of surgery. Halfway she is advised to perform a basal rate test and then adjust her insulin to carb ratio and corrections which do not seem to be properly adjusted. Asumin her basal rates are correct one would expect a carb ratio 1: 10 grams with a correction of 30 - 40 mg/dl. This however can be adjusted later after her procedure as long as she checks and uses the appropriate bolus technique. Othewise as it pertains to her hypoglycemia unawareness I have discussed a Continous Glucose Monitor with her. This can also be arranged on an outpatient basis. Thank you for the opportunity to participate in the medical management of your patient. Discussed Condition With Patient Mother Dr. Clarke Discharge Planning As per treating physicians Please see above from Diabetes Perspective. Problem Qualifiers (1) Diabetes type 1, uncontrolled: Qualified Codes: E10.65 - Type 1 diabetes mellitus with hyperglycemia Del Baker MD Dec 16, 2017 14:39
[2017-12-16] MEDS ORDERED: PROMETHAZINE INJ 25 MG/ML VIAL IM PRN (14:45)
[2017-12-16] MEDS ORDERED: MENTHOL LOZENGE BUCCAL PRN (14:45)
[2017-12-16] MEDS ORDERED: oxyCODONE/ACETAMINOPHEN 5 MG/325 MG TAB PO PRN (14:45)
[2017-12-16] MEDS ORDERED: RESP: ALBUTEROL 2.5 MG/3 ML NEB (PRN) NEB (14:45)
[2017-12-16] MEDS ORDERED: BISACODYL 10 MG SUPP RECTAL PRN (14:45)
[2017-12-16] MEDS ORDERED: ALUMINUM/MAGNESIUM/SIMETH 30 ML CUP PO PRN (14:45)
[2017-12-16] MEDS ORDERED: LACTULOSE SYRUP 20 GM/30 ML CUP PO PRN (14:45)
[2017-12-16] MEDS ORDERED: CYCLOBENZAPRINE HCL 10 MG TAB PO PRN (14:45)
[2017-12-16] MEDS ORDERED: SODIUM CHLORIDE 0.9% FLUSH 10 ML FLUSH IV FLUSH PRN (14:45)
[2017-12-16] MEDS ORDERED: SENNOSIDES 8.6 MG TAB PO PRN (14:45)
[2017-12-16] MEDS ORDERED: cloNIDine HCL 0.1 MG TAB PO PRN (14:45)
[2017-12-16] MEDS ORDERED: MAGNESIUM HYDROXIDE SUSP 30 ML CUP PO PRN (14:45)
[2017-12-16] MEDS ORDERED: DO NOT ADM ANY ANTICOAGULANT DRUGS PRN (14:47)
--- NOTE | 2017-12-16 14:49 | PD.OP ---
Operative Report Date of Surgery: Dec 16, 2017 Preoperative Diagnosis: Large right L5-S1 disc herniation with intractable back pain and L5 and S1 radiculopathy Postoperative Diagnosis: Same Procedure: Right L5-S1 hemilaminotomy with microdiscectomy; microsurgical technique Anesthesia: Gen. endotracheal by Jewell Negron Surgeon: Tony Worthy M.D. Media Supervisor(s): Denise Dorsey Operation and Findings: Following administration of general endotracheal anesthesia, patient received vancomycin 1 g intravenously. Sequential compression devices were placed for DVT prophylaxis. He was then turned in prone position on Tru frame and the Jn table and all pressure points adequately padded. The lumbar region was then shaved and prepped with a Betadine and ChloraPrep. Sterile draping undertaken with Ioban. Midline incision overlying the L5-S1 level was then made after infiltrating the skin with 0.5% Marcaine with epinephrine solution. The skin incision was made extending down through the fascia and then using the subperiosteal plane on the right side the muscular attachments to the spinous process and lamina were detached. Intraoperative fluoroscopy was used for level confirmation and further dissection undertaken using microtechnique with microscope magnification. The inferior portion of the right L5 and portion of the S1 lamina was then drilled out and the underlying ligamentum flavum also removed. Epidural venous stasis which he with the bipolar cautery along with Gelfoam and thrombin and bone wax used at the laminotomy edges for hemostasis. The thecal sac was then gently retracted with a nerve root retractor and an extruded large disc fragment was identified which was inferiorly migrated. Fragments were removed with pituitary forceps and the nerve root impingement along with thecal sac compression decompressed. The area was then copiously irrigated with vancomycin solution. The retractors removed and the muscle fascia proximal using 2-0 Vicryl interrupted stitches. 3-0 Vicryl subcuticular stitches were also placed in an interrupted fashion and planned skin closure was with Mastisol and Steri-Strips. A sterile dressing was then applied and the patient then turned in the supine position and extubated and taken to recovery room in stable condition. There were no intraoperative complications and all sponge and needle count was correct at the end of the procedure. Estimated blood loss about 20 cc. Tony Worthy MD Dec 16, 2017 14:49
[2017-12-16] MEDS ORDERED: *MEPERIDINE 25 MG INJ VIAL PERIprocedural Use ONLY ONE (14:51)
[2017-12-16] MEDS ORDERED: *morphine SULFATE 8 MG/ML PERIprocedure ONLY ONE (15:05)
[2017-12-16] MEDS ORDERED: MIDAZOLAM HCL 2 MG/2 ML VIAL ONE (15:14)
[2017-12-16] MEDS ORDERED: *ONDANSETRON 4 MG VIAL PERIprocedural Use ONLY ONE (15:20)
[2017-12-16] MEDS: MORPHINE SULFATE 4 MG/ML INJ IV PUSH PRN ×2 (16:54→20:24)
[2017-12-16] MEDS ORDERED: VISCOAT OPHT IRRIG SOLN 0.75 ML SYRINGE RIGHT EYE ONE (19:00)
--- NOTE | 2017-12-16 19:04 | HHI.PR ---
Subjective Remarks Patient seen this morning around 10 AM. She reports lower back pain continues. Reports nausea but no vomiting. Objective Vital Signs Date Time Temp Pulse Resp B/P (MAP) Pulse Ox O2 Delivery O2 Flow Rate FiO2 12/16/17 16:15 97.9 77 20 105/57 (73) 100 Nasal Cannula 2 12/16/17 16:00 71 20 94/55 (68) 100 Nasal Cannula 2 12/16/17 15:45 71 20 95/53 (67) 100 Nasal Cannula 2 12/16/17 15:30 69 20 100/60 (73) 100 Nasal Cannula 2 12/16/17 15:15 64 20 100/60 (73) 100 Nasal Cannula 2 12/16/17 15:00 84 20 118/66 (83) 100 Nasal Cannula 2 12/16/17 14:48 97.8 90 20 112/62 (79) 95 Nasal Cannula 2 12/16/17 12:00 97.0 82 18 121/69 (86) 99 12/16/17 08:21 97.7 77 20 98/63 (75) 100 12/16/17 07:15 100 Room Air 12/16/17 06:15 109/73 (85) 12/16/17 04:00 97.7 74 18 86/56 (66) 98 12/16/17 00:12 98.6 83 18 101/58 (72) 97 12/16/17 00:12 97 Room Air 12/15/17 20:30 98 Room Air 12/15/17 20:00 98.7 100 16 108/69 (82) 98 I/O 12/15/17 12/15/17 12/15/17 12/16/17 12/16/17 12/16/17 07:00 15:00 23:00 07:00 15:00 23:00 Intake Total 1440 ml 860 ml 1400 ml Balance 1440 ml 860 ml 1400 ml Intake Oral 1440 ml 360 ml IV Total 500 ml Other 1400 ml # Voids 2 3 # Bowel Movements 1 2 Result Diagram: 12/15/17 0842 12/16/17 1132 Objective Remarks GENERAL: pt lying in bed. nad. AAox3 . No change on exam. SKIN: Warm and dry. HEAD: Normocephalic. EYES: No scleral icterus. No injection or drainage. NECK: Supple, trachea midline. No JVD. CARDIOVASCULAR: Regular rate and rhythm without murmurs, gallops, or rubs. RESPIRATORY: Breath sounds equal bilaterally. No accessory muscle use. GASTROINTESTINAL: Abdomen soft, non-tender, nondistended. MUSCULOSKELETAL: No cyanosis, or edema. BACK: Nontender without obvious deformity. No CVA tenderness. A/P Assessment and Plan 37-year-old female with history of diabetes, hypertension, hypothyroidism, asthma, chronic back pain, herniated disc, sciatica, neuropathy, presents with worsening low back pain, weakness, and incontinence. //Lumbar Radiculopathy with Disc Protrusion: Lumbar spine MRI showed large disc extrusion at L5-S1 central and right paracentral, extending inferior to the level of the disc space and causing significant neural impingement upon the S1 nerve root. -Started on steroids with IV Decadron 4mg q6h -Pain control with tylenol prn, IV toradol prn -Consult neurology -Consult neurosurgery -Consult PT =pt ff/ appreciate neurosurg assist. = Surgery today. Appreciate assistance. //Hypertension: BP currently borderline low -RN to update med rec, will restart meds once updated -monitor BP, adjust antihypertensives as needed //Diabetes Mellitus: with reported allergy to novolin/insulin -will restart home meds once med rec updated -monitor Accu-checks =patient report anaphylaxis to standard insulin. says haylee okay. has lispro pump on right now rate of 1-1.2 units per hour with mealtime bolus. as patient may need surgery, will consult endocrinology. avoid steroids if possible == 12/16 Endocrinology has recommended going down on up apidra during surgery, with resumption of patient's sliding scale which patient will manage after surgery. Basal rate. I discussed this both with endocrinology, as well as our options with pharmacy. We'll continue on basal rate on patient's insulin pump, and patient will provide herself with bolus dosing. Nursing to check glucose. I have discussed with nursing //leukocytosis 12. Likely secondary to steroids on admission. //Hypothyroidism: chronic -will restart home meds. //Asthma: chronic, not in exacerbation -continue albuterol prn DVT Prophylaxis: teds/SCDs; avoid chemoprophylaxis pending possible surgery Discharge Planning continue inpatient management. Patient has insulin pump Pending neurosurgery clearance. Tyson Clarke MD Dec 16, 2017 19:04
[2017-12-16] MEDS ORDERED: VISCOAT RIGHT EYE ONE (19:45)
[2017-12-16] MEDS ORDERED: ZOLPIDEM TARTRATE 5 MG TAB PO PRN (21:00)
[2017-12-16] MEDS: ONDANSETRON HCL 4 MG/2 ML VIAL IV PUSH PRN (21:13)
[2017-12-17] MEDS: oxyCODONE/ACETAMINOPHEN 5 MG/325 MG TAB PO PRN ×4 (01:38→17:09)
[2017-12-17 03:55] VITALS: BP 105/61; PULSE 79; RESP 17; TEMP 98.7; O2SAT 99
[2017-12-17 08:00] VITALS: BP 135/73; PULSE 84; RESP 16; TEMP 98.8; O2SAT 96
[2017-12-17] MEDS: GABAPENTIN 300 MG CAP PO SCH ×3 (08:06→17:09)
[2017-12-17] MEDS: PANTOPRAZOLE SOD 40 MG DELAYED RELEASE TAB PO SCH (08:06)
[2017-12-17] MEDS: DOCUSATE SODIUM 50 MG/SENNA 8.6 MG TAB PO SCH (08:07)
[2017-12-17] MEDS: SODIUM CHLORIDE 0.9% FLUSH 10 ML FLUSH IV FLUSH SCH ×2 (08:07→21:24)
[2017-12-17 12:00] VITALS: BP 107/63; PULSE 103; RESP 16; TEMP 99.1; O2SAT 97
--- NOTE | 2017-12-17 12:09 | HHI.PR ---
Subjective Remarks Follow-up for lumbar radiculopathy secondary to disc herniation Patient complaining of pain. She said that she does not know if she is doing better. Her daughter who is at the bedside for psych her strength has improved. She stated that her daughter has been examining her since this happened part of her home school assignment. Otherwise patient has no other complaints. Discussed case with patient's nurse. Patient stated that she stills feels the sharp pins and needles pains and lower extremity. Objective Vitals Vital Signs Date Time Temp Pulse Resp B/P (MAP) Pulse Ox O2 Delivery O2 Flow Rate FiO2 12/17/17 03:55 98.7 79 17 105/61 (76) 99 12/16/17 23:20 98.0 79 17 101/58 (72) 97 12/16/17 20:11 Nasal Cannula 2.00 12/16/17 19:31 98.2 82 17 96/54 (68) 97 12/16/17 17:15 Nasal Cannula 2.00 12/16/17 17:00 97.8 84 16 110/62 (78) 100 12/16/17 16:15 97.9 77 20 105/57 (73) 100 Nasal Cannula 2 12/16/17 16:00 71 20 94/55 (68) 100 Nasal Cannula 2 12/16/17 15:45 71 20 95/53 (67) 100 Nasal Cannula 2 12/16/17 15:30 69 20 100/60 (73) 100 Nasal Cannula 2 12/16/17 15:15 64 20 100/60 (73) 100 Nasal Cannula 2 12/16/17 15:00 84 20 118/66 (83) 100 Nasal Cannula 2 12/16/17 14:48 97.8 90 20 112/62 (79) 95 Nasal Cannula 2 I/O 12/16/17 12/16/17 12/16/17 12/17/17 12/17/17 12/17/17 07:00 15:00 23:00 07:00 15:00 23:00 Intake Total 860 ml 1400 ml 360 ml 480 ml Balance 860 ml 1400 ml 360 ml 480 ml Intake Oral 360 ml 360 ml 480 ml IV Total 500 ml Other 1400 ml # Voids 3 1 1 # Bowel Movements 2 2 0 Result Diagram: 12/15/17 0842 12/16/17 1132 Imaging Last Impressions Lumbar Spine X-Ray 12/16/17 0000 Signed Impressions: Service Date/Time: Saturday, December 16, 2017 13:09 - CONCLUSION: Lateral fluoroscopic image demonstrates temporary probe overlying the posterior elements at superior L5 level. Jourdan Magallanes MD Chest X-Ray 12/14/17 0000 Signed Impressions: Service Date/Time: Thursday, December 14, 2017 17:38 - CONCLUSION: No acute disease. Lui Jones MD FACR Lumbar Spine MRI 12/13/17 0000 Signed Impressions: Service Date/Time: Wednesday, December 13, 2017 23:37 - CONCLUSION: 1. Large disc extrusion at L5-S1 central and right paracentral, extending inferior to the level of the disc space and causing significant neural impingement upon the S1 nerve root as it courses through the bony spinal canal. Amado Sorensen MD Objective Remarks GENERAL: in NAD CARDIOVASCULAR: Regular rate and rhythm without murmurs, gallops, or rubs. RESPIRATORY: Breath sounds equal bilaterally. No accessory muscle use. GASTROINTESTINAL: Abdomen soft, non-tender, nondistended. MUSCULOSKELETAL: right foot 4/5 plantar and dorsiflex. 4/5 right LE strength Left lower extremity intact 5/5 Medications and IVs Current Medications Sodium Chloride (NS Flush) 2 ml UNSCH PRN IV FLUSH FLUSH AFTER USING IV ACCESS ; Start 12/14/17 at 04:15; Stop 12/16/17 at 16:05; Status DC Sodium Chloride (NS Flush) 2 ml BID IV FLUSH Last administered on 12/15/17at 21: 25; Start 12/14/17 at 09:00; Stop 12/16/17 at 16:05; Status DC Naloxone HCl (Narcan Inj) 0.4 mg UNSCH PRN IV PUSH SEE LABEL COMMENTS; Start at 04:15 Ketorolac Tromethamine (Toradol Inj) 30 mg ONCE ONCE IV PUSH Last administered on 12/14/17at 04:53; Start 12/14/17 at 04:15; Stop 12/14/17 at 04:16 ; Status DC Diazepam (Valium) 10 mg ONCE ONCE PO Last administered on 12/14/17at 04:53; Start 12/14/17 at 04:15; Stop 12/14/17 at 04:16; Status DC Prednisone (Deltasone) 60 mg ONCE ONCE PO ; Start 12/14/17 at 04:15; Stop 12/14 at 04:16; Status DC Dexamethasone Sodium Phosphate (Decadron Inj) 10 mg ONCE ONCE IV PUSH Last administered on 12/14/17at 04:52; Start 12/14/17 at 04:15; Stop 12/14/17 at 04:16 ; Status DC Dexamethasone Sodium Phosphate (Decadron Inj) 4 mg Q6HR IV PUSH Last administered on 12/14/17at 09:57; Start 12/14/17 at 10:00; Stop 12/14/17 at 11:33 ; Status DC Dexamethasone Sodium Phosphate (Decadron Inj) 4 mg Q6H IV PUSH Last administered on 12/14/17at 16:13; Start 12/14/17 at 16:00; Stop 12/14/17 at 17:05 ; Status DC Acetaminophen (Tylenol) 650 mg Q6H PRN PO headache/fever >101.5; Start at 14:00 Ketorolac Tromethamine (Toradol Inj) 15 mg Q6H PRN IV PUSH pain scale 3-10 Last administered on 12/14/17at 14:33; Start 12/14/17 at 14:00; Stop 12/14/17 at 17:05; Status DC Dextrose (D50w (Vial) Inj) 50 ml UNSCH PRN IV PUSH HYPOGLYCEMIA-SEE COMMENTS; Start 12/14/17 at 14:00 Glucagon (Glucagon Inj) 1 mg UNSCH PRN OTHER HYPOGLYCEMIA-SEE COMMENTS; Start 12/14/17 at 14:00 Oxycodone/ Acetaminophen (Percocet 5-325 Mg) 1 tab Q6H PRN PO pain 3-10 Last administered on 12/16/17at 09:26; Start 12/14/17 at 17:00; Stop 12/16/17 at 14:47 ; Status DC Al Hydrox/Mg Hydrox/Simethicone (Mag-Al Plus Susp Liq) 30 ml Q6H PRN PO DYSPEPSIA; Start 12/14/17 at 17:00; Stop 12/16/17 at 16:05; Status DC Ondansetron HCl (Zofran Inj) 4 mg Q6H PRN IV PUSH NAUSEA OR VOMITING Last administered on 12/16/17at 04:03; Start 12/14/17 at 17:00; Stop 12/16/17 at 16:06 ; Status DC Acetaminophen (Tylenol) 650 mg Q4H PRN PO TEMPERATURE > 101.5 F; Start at 17:00; Stop 12/14/17 at 17:08; Status DC Albuterol Sulfate (Albuterol Neb) 2.5 mg Q4HR NEB PRN NEB WHEEZING; Start 12/14 at 17:00; Stop 12/16/17 at 16:06; Status DC Senna/Docusate Sodium (Ivory-Colace) 1 tab BID PO Last administered on at 21:25; Start 12/14/17 at 21:00 Magnesium Hydroxide (Milk Of Magnesia Liq) 30 ml Q12H PRN PO Mild constipation ; Start 12/14/17 at 17:00; Stop 12/16/17 at 16:06; Status DC Sennosides (Senokot) 17.2 mg Q12H PRN PO Moderate constipation; Start 12/14/17 at 17:00; Stop 12/16/17 at 16:06; Status DC Bisacodyl (Dulcolax Supp) 10 mg DAILY PRN RECTAL SEVERE CONSITIPATION; Start at 17:00; Stop 12/16/17 at 16:06; Status DC Lactulose (Lactulose Liq) 30 ml DAILY PRN PO SEVERE CONSITIPATION; Start at 17:00; Stop 12/16/17 at 16:06; Status DC Gabapentin (Neurontin) 300 mg BID PO Last administered on 12/15/17at 09:12; Start 12/14/17 at 21:00; Stop 12/15/17 at 10:42; Status DC Gabapentin (Neurontin) 300 mg TID PO Last administered on 12/17/17at 08:06; Start 12/15/17 at 13:00 Patient Own Medication PT OWN MED: INSU... DAILY SQ ; Start 12/15/17 at 12:15; Status Future Hold Vancomycin HCl 1000 mg/Sodium Chloride 250 ml @ 250 mls/hr COMMERCIAL LOAN CLOSER IV ; Start 12/15/17 at 14:30; Stop 12/18/17 at 14:29 Pantoprazole Sodium (Protonix) 40 mg ONCE ONCE PO Last administered on at 21:25; Start 12/15/17 at 21:00; Stop 12/15/17 at 21:13; Status DC Pantoprazole Sodium (Protonix) 40 mg DAILY PO Last administered on 12/17/17at 08 :06; Start 12/16/17 at 09:00 Sodium Chloride 500 ml @ 500 mls/hr BOLUS ONCE IV Last administered on at 05:29; Start 12/16/17 at 05:00; Stop 12/16/17 at 05:59; Status DC Vancomycin HCl (Vancomycin Inj) 1,000 mg STK-MED ONCE .ROUTE Last administered on 12/16/17at 13:45; Start 12/16/17 at 12:15; Stop 12/16/17 at 12:16; Status DC Thrombin (Thrombin Top Soln) 10,000 units STK-MED ONCE .ROUTE Last administered on 12/16/17at 13:45; Start 12/16/17 at 12:15; Stop 12/16/17 at 12:16 ; Status DC Bupivacaine HCl/ Epinephrine Bitart (Sensorcaine-Epinephrine Pf 0.5% Inj) 30 ml STK-MED ONCE .ROUTE Last administered on 12/16/17at 13:45; Start 12/16/17 at 12: 16; Stop 12/16/17 at 12:17; Status DC Methylprednisolone Acetate (Depo-Medrol Inj) 40 mg STK-MED ONCE .ROUTE ; Start 12/16/17 at 12:16; Stop 12/16/17 at 12:17; Status DC Gelatin (Gelfoam 100 Top) 1 foam STK-MED ONCE .ROUTE Last administered on at 13:45; Start 12/16/17 at 12:16; Stop 12/16/17 at 12:17; Status DC Lactated Ringer's 1,000 ml @ 30 mls/hr Q24H PRN IV SEE LABEL COMMENTS; Start at 12:45; Stop 12/19/17 at 12:44 Sodium Chloride 500 ml @ 30 mls/hr [id number] PRN IV SEE LABEL COMMENTS; Start at 12:45; Stop 12/19/17 at 12:44 Metoprolol Tartrate (Lopressor) 25 mg COMMERCIAL LOAN CLOSER PRN PO SEE LABEL COMMENTS; Start 12/16/17 at 12:45; Stop 12/19/17 at 12:44 Povidone Iodine (Betadine 5% Antisepsis Kit) 1 applic COMMERCIAL LOAN CLOSER PRN EACH NARE SEE LABEL COMMENTS; Start 12/16/17 at 12:45; Stop 12/19/17 at 12:44 Chlorhexidine Gluconate (Chlorhexidine 2% Cloth) 3 pack COMMERCIAL LOAN CLOSER PRN TOPICAL SEE LABEL COMMENTS; Start 12/16/17 at 12:45; Stop 12/19/17 at 12:44 Vancomycin HCl (Vancomycin Inj) 1,000 mg STK-MED ONCE .ROUTE Last administered on 12/16/17at 13:26; Start 12/16/17 at 12:57; Stop 12/16/17 at 12:58; Status DC Sodium Chloride 250 ml @ As Directed STK-MED ONCE .ROUTE Last administered on 12/16/17at 13:26; Start 12/16/17 at 12:57; Stop 12/16/17 at 12:58; Status DC Sodium Chloride (NS Flush) 2 ml UNSCH PRN IV FLUSH FLUSH AFTER USING IV ACCESS ; Start 12/16/17 at 14:45 Sodium Chloride (NS Flush) 2 ml BID IV FLUSH Last administered on 12/17/17at 08: 07; Start 12/16/17 at 21:00 Cefazolin Sodium 1000 mg/Sodium Chloride 100 ml @ 200 mls/hr Q8H IV Last administered on 12/17/17at 08:07; Start 12/16/17 at 17:00; Stop 12/17/17 at 09:29 ; Status DC Al Hydrox/Mg Hydrox/Simethicone (Mag-Al Plus Susp Liq) 30 ml Q6H PRN PO DYSPEPSIA; Start 12/16/17 at 14:45 Ondansetron HCl (Zofran Inj) 4 mg Q6H PRN IV PUSH NAUSEA OR VOMITING Last administered on 12/16/17at 21:13; Start 12/16/17 at 14:45 Promethazine HCl (Phenergan Inj) 25 mg Q4H PRN IM NAUSEA OR VOMITING; Start at 14:45 Oxycodone/ Acetaminophen (Percocet 5-325 Mg) 1 tab Q4H PRN PO PAIN SCALE 1 TO 5; Start 12/16/17 at 14:45 Oxycodone/ Acetaminophen (Percocet 5-325 Mg) 2 tab Q4H PRN PO PAIN SCALE 6 TO 10 Last administered on 12/17/17at 08:07; Start 12/16/17 at 14:45 Morphine Sulfate (Morphine Inj) 2 mg Q2H PRN IV PUSH breakthrough pain> 6 Last administered on 12/16/17at 20:24; Start 12/16/17 at 14:45 Cyclobenzaprine HCl (Flexeril) 10 mg Q8H PRN PO MUSCLE SPASM; Start 12/16/17 at 14:45 Clonidine (Catapres) 0.1 mg Q6H PRN PO SYS BP GREATER THAN 170 MMHG; Start at 14:45 Menthol ([place] Kenrick) 1 lozenge UNSCH PRN BUCCAL SORE THROAT; Start 12/16/17 at 14:45 Zolpidem Tartrate (Ambien) 5 mg HS PRN PO INSOMNIA; Start 12/16/17 at 21:00 Albuterol Sulfate (Albuterol Neb) 2.5 mg Q4HR NEB PRN NEB WHEEZING; Start 12/16 at 14:45 Magnesium Hydroxide (Milk Of Magnesia Liq) 30 ml Q12H PRN PO Mild constipation ; Start 12/16/17 at 14:45 Sennosides (Senokot) 17.2 mg Q12H PRN PO Moderate constipation; Start 12/16/17 at 14:45 Bisacodyl (Dulcolax Supp) 10 mg DAILY PRN RECTAL SEVERE CONSITIPATION; Start at 14:45 Lactulose (Lactulose Liq) 30 ml DAILY PRN PO SEVERE CONSITIPATION; Start at 14:45 Meperidine HCl (*DEMEROL INJ PERIprocedural ONLY) 25 mg STK-MED ONCE .ROUTE Last administered on 12/16/17at 14:51; Start 12/16/17 at 14:51; Stop 12/16/17 at 14:52; Status DC Morphine Sulfate (*morphine INJ PERIprocedure ONLY) 8 mg STK-MED ONCE .ROUTE Last administered on 12/16/17at 15:05; Start 12/16/17 at 15:05; Stop 12/16/17 at 15:06; Status DC Midazolam HCl (Versed Inj) 2 mg STK-MED ONCE .ROUTE ; Start 12/16/17 at 15:14; Stop 12/16/17 at 15:15; Status DC Fentanyl Citrate (fentaNYL INJ) 200 mcg STK-MED ONCE .ROUTE ; Start 12/16/17 at 15:14; Stop 12/16/17 at 15:15; Status DC Ondansetron HCl (*ZOFRAN INJ PERIprocedural ONLY) 4 mg STK-MED ONCE .ROUTE Last administered on 12/16/17at 15:20; Start 12/16/17 at 15:20; Stop 12/16/17 at 15:21; Status DC Miscellaneous Information ALL NURSING DEPARTME... UNSCH PRN .XX SEE LABEL COMMENTS; Start 12/16/17 at 14:47; Stop 12/17/17 at 14:46 Sodium Hyaluronate/ Chondriotin Sulf (Viscoat 0.75 ml Opht Irrig Soln) 0.75 ml ONCE ONCE RIGHT EYE ; Start 12/16/17 at 19:00; Stop 12/16/17 at 19:01; Status Cancel Sodium Hyaluronate/ Chondriotin Sulf (Viscoat Opth Irr) 0.75 ml ONCE ONCE RIGHT EYE Last administered on 12/16/17at 20:04; Start 12/16/17 at 19:45; Stop 12/16/17 at 19:46; Status DC A/P Assessment and Plan 37-year-old female with history of diabetes, hypertension, hypothyroidism, asthma, chronic back pain, herniated disc, sciatica, neuropathy, presents with worsening low back pain, weakness, and incontinence. Lumbar Radiculopathy with Disc Protrusion - Lumbar spine MRI showed large disc extrusion at L5-S1 central and right paracentral, extending inferior to the level of the disc space and causing significant neural impingement upon the S1 nerve root. -Status post Right L5-S1 hemilaminotomy with microdiscectomy; microsurgical technique on 12/16. -PT consulted. Management per neurosurgeon. Hypertension: BP currently borderline low -Once med list updated can resume home medication. Diabetes Mellitus: with reported allergy to novolin/insulin -[employer] consulted. Continue management per form setter metal [employer] forms. Hypothyroidism: chronic -Continue home medication. Asthma: chronic, not in exacerbation -continue albuterol prn DVT Prophylaxis: teds/SCDs Mayra Sarmiento MD Dec 17, 2017 12:09
[2017-12-17 16:00] VITALS: BP 108/68; PULSE 102; RESP 16; TEMP 99; O2SAT 98
--- NOTE | 2017-12-17 17:32 | HHI.NSPN ---
History Chief Complaint: Right posterior leg pain. Interval History Continues to complain of radiating pain down the right leg. Reports the pain is unchanged from preop. Also complains of pain at the level of the piriformis muscle Exam Results Vital Signs Date Time Temp Pulse Resp B/P (MAP) Pulse Ox O2 Delivery O2 Flow Rate FiO2 12/17/17 12:00 99.1 103 16 107/63 (78) 97 12/16/17 20:11 Nasal Cannula 2.00 Intake and Output 12/17/17 12/17/17 12/18/17 08:00 16:00 00:00 Intake Total 480 ml 100 ml Balance 480 ml 100 ml Physical Examination Plantar and dorsiflexion of the feet appears normal Sensation is intact to touch Ankle jerk on the right is absent Lab, Micro, Other Results Medical Decision Making Impression and Plan Continued pain postop. Has not been out of bed yet Had a long discussion with the patient and her family concerning the pain. Have advised increase mobilization. Will hold discharge for now Andrew Saleh MD Dec 17, 2017 17:32
[2017-12-17] MEDS ORDERED: DOCUSATE SODIUM 50 MG/SENNA 8.6 MG TAB PO PRN (17:45)
[2017-12-17] MEDS ORDERED: PILL SPLITTER OTHER PRN (17:45)
[2017-12-17 20:40] VITALS: BP 101/55; PULSE 91; RESP 17; TEMP 99.3; O2SAT 96
[2017-12-17] MEDS: ONDANSETRON HCL 4 MG/2 ML VIAL IV PUSH PRN (21:19)
[2017-12-17] MEDS: MORPHINE SULFATE 4 MG/ML INJ IV PUSH PRN (22:30)
[2017-12-17 23:47] VITALS: BP 107/58; PULSE 85; RESP 17; TEMP 98.7; O2SAT 96
[2017-12-18 03:36] VITALS: BP 105/89; PULSE 89; RESP 17; TEMP 98.5; O2SAT 97
[2017-12-18 07:43] VITALS: BP 92/55; PULSE 84; RESP 18; TEMP 98.6; O2SAT 97
[2017-12-18] MEDS: GABAPENTIN 300 MG CAP PO SCH ×3 (08:26→18:19)
[2017-12-18] MEDS: PANTOPRAZOLE SOD 40 MG DELAYED RELEASE TAB PO SCH (08:26)
[2017-12-18] MEDS: ONDANSETRON HCL 4 MG/2 ML VIAL IV PUSH PRN (08:27)
[2017-12-18] MEDS: oxyCODONE/ACETAMINOPHEN 5 MG/325 MG TAB PO PRN ×2 (08:27→20:09)
[2017-12-18] MEDS: CYCLOBENZAPRINE HCL 10 MG TAB PO PRN ×2 (08:27→15:20)
[2017-12-18 11:37] VITALS: BP 110/66; PULSE 86; RESP 18; TEMP 98.5; O2SAT 96
--- NOTE | 2017-12-18 12:29 | HHI.PR ---
Subjective Remarks Follow-up postop Patient states she had a horrible night. She was up all night with emesis. Patient also stated that her glutes and hip hurt. She feels like feels like her muscles are red. She denies any trauma to the area. Otherwise had no other complaints. Patient stated that she did work with PT yesterday. Objective Vitals Vital Signs Date Time Temp Pulse Resp B/P (MAP) Pulse Ox O2 Delivery O2 Flow Rate FiO2 12/18/17 11:37 98.5 86 18 110/66 (81) 96 12/18/17 07:43 98.6 84 18 92/55 (67) 97 12/18/17 03:36 98.5 89 17 105/89 (94) 97 12/17/17 23:47 98.7 85 17 107/58 (74) 96 12/17/17 20:40 99.3 91 17 101/55 (70) 96 12/17/17 16:00 99.0 102 16 108/68 (81) 98 I/O 12/17/17 12/17/17 12/17/17 12/18/17 12/18/17 12/18/17 07:00 15:00 23:00 07:00 15:00 23:00 Intake Total 480 ml 100 ml 600 ml 240 ml Balance 480 ml 100 ml 600 ml 240 ml Intake Oral 480 ml 600 ml 240 ml IV Total 100 ml # Voids 1 3 3 # Bowel Movements 0 2 Result Diagram: 12/15/17 0842 12/16/17 1132 Objective Remarks GENERAL: in NAD CARDIOVASCULAR: Regular rate and rhythm without murmurs, gallops, or rubs. RESPIRATORY: Breath sounds equal bilaterally. No accessory muscle use. GASTROINTESTINAL: Abdomen soft, non-tender, nondistended. MUSCULOSKELETAL: right foot 4/5 plantar and dorsiflex. 4/5 right LE strength Left lower extremity intact 5/5 Medications and IVs Current Medications Sodium Chloride (NS Flush) 2 ml UNSCH PRN IV FLUSH FLUSH AFTER USING IV ACCESS ; Start 12/14/17 at 04:15; Stop 12/16/17 at 16:05; Status DC Sodium Chloride (NS Flush) 2 ml BID IV FLUSH Last administered on 12/15/17at 21: 25; Start 12/14/17 at 09:00; Stop 12/16/17 at 16:05; Status DC Naloxone HCl (Narcan Inj) 0.4 mg UNSCH PRN IV PUSH SEE LABEL COMMENTS; Start at 04:15 Ketorolac Tromethamine (Toradol Inj) 30 mg ONCE ONCE IV PUSH Last administered on 12/14/17at 04:53; Start 12/14/17 at 04:15; Stop 12/14/17 at 04:16 ; Status DC Diazepam (Valium) 10 mg ONCE ONCE PO Last administered on 12/14/17at 04:53; Start 12/14/17 at 04:15; Stop 12/14/17 at 04:16; Status DC Prednisone (Deltasone) 60 mg ONCE ONCE PO ; Start 12/14/17 at 04:15; Stop 12/14 at 04:16; Status DC Dexamethasone Sodium Phosphate (Decadron Inj) 10 mg ONCE ONCE IV PUSH Last administered on 12/14/17at 04:52; Start 12/14/17 at 04:15; Stop 12/14/17 at 04:16 ; Status DC Dexamethasone Sodium Phosphate (Decadron Inj) 4 mg Q6HR IV PUSH Last administered on 12/14/17at 09:57; Start 12/14/17 at 10:00; Stop 12/14/17 at 11:33 ; Status DC Dexamethasone Sodium Phosphate (Decadron Inj) 4 mg Q6H IV PUSH Last administered on 12/14/17at 16:13; Start 12/14/17 at 16:00; Stop 12/14/17 at 17:05 ; Status DC Acetaminophen (Tylenol) 650 mg Q6H PRN PO headache/fever >101.5; Start at 14:00 Ketorolac Tromethamine (Toradol Inj) 15 mg Q6H PRN IV PUSH pain scale 3-10 Last administered on 12/14/17at 14:33; Start 12/14/17 at 14:00; Stop 12/14/17 at 17:05; Status DC Dextrose (D50w (Vial) Inj) 50 ml UNSCH PRN IV PUSH HYPOGLYCEMIA-SEE COMMENTS; Start 12/14/17 at 14:00 Glucagon (Glucagon Inj) 1 mg UNSCH PRN OTHER HYPOGLYCEMIA-SEE COMMENTS; Start 12/14/17 at 14:00 Oxycodone/ Acetaminophen (Percocet 5-325 Mg) 1 tab Q6H PRN PO pain 3-10 Last administered on 12/16/17at 09:26; Start 12/14/17 at 17:00; Stop 12/16/17 at 14:47 ; Status DC Al Hydrox/Mg Hydrox/Simethicone (Mag-Al Plus Susp Liq) 30 ml Q6H PRN PO DYSPEPSIA; Start 12/14/17 at 17:00; Stop 12/16/17 at 16:05; Status DC Ondansetron HCl (Zofran Inj) 4 mg Q6H PRN IV PUSH NAUSEA OR VOMITING Last administered on 12/16/17at 04:03; Start 12/14/17 at 17:00; Stop 12/16/17 at 16:06 ; Status DC Acetaminophen (Tylenol) 650 mg Q4H PRN PO TEMPERATURE > 101.5 F; Start at 17:00; Stop 12/14/17 at 17:08; Status DC Albuterol Sulfate (Albuterol Neb) 2.5 mg Q4HR NEB PRN NEB WHEEZING; Start 12/14 at 17:00; Stop 12/16/17 at 16:06; Status DC Senna/Docusate Sodium (Ivory-Colace) 1 tab BID PO Last administered on at 21:25; Start 12/14/17 at 21:00; Stop 12/17/17 at 17:33; Status DC Magnesium Hydroxide (Milk Of Magnesia Liq) 30 ml Q12H PRN PO Mild constipation ; Start 12/14/17 at 17:00; Stop 12/16/17 at 16:06; Status DC Sennosides (Senokot) 17.2 mg Q12H PRN PO Moderate constipation; Start 12/14/17 at 17:00; Stop 12/16/17 at 16:06; Status DC Bisacodyl (Dulcolax Supp) 10 mg DAILY PRN RECTAL SEVERE CONSITIPATION; Start at 17:00; Stop 12/16/17 at 16:06; Status DC Lactulose (Lactulose Liq) 30 ml DAILY PRN PO SEVERE CONSITIPATION; Start at 17:00; Stop 12/16/17 at 16:06; Status DC Gabapentin (Neurontin) 300 mg BID PO Last administered on 12/15/17 09:12; Start 12/14/17 at 21:00; Stop 12/15/17 at 10:42; Status DC Gabapentin (Neurontin) 300 mg TID PO Last administered on 12/18/17 08:26; Start 12/15/17 at 13:00 Patient Own Medication PT OWN MED: INSU... DAILY SQ ; Start 12/15/17 at 12:15; Status Future Hold Vancomycin HCl 1000 mg/Sodium Chloride 250 ml @ 250 mls/hr GOLD BUYER IV ; Start 12/15/17 at 14:30; Stop 12/18/17 at 14:29 Pantoprazole Sodium (Protonix) 40 mg ONCE ONCE PO Last administered on 21:25; Start 12/15/17 at 21:00; Stop 12/15/17 at 21:13; Status DC Pantoprazole Sodium (Protonix) 40 mg DAILY PO Last administered on 12/18/17at 08 :26; Start 12/16/17 at 09:00 Sodium Chloride 500 ml @ 500 mls/hr BOLUS ONCE IV Last administered on 05:29; Start 12/16/17 at 05:00; Stop 12/16/17 at 05:59; Status DC Vancomycin HCl (Vancomycin Inj) 1,000 mg STK-MED ONCE .ROUTE Last administered on 12/16/17 13:45; Start 12/16/17 at 12:15; Stop 12/16/17 at 12:16; Status DC Thrombin (Thrombin Top Soln) 10,000 units STK-MED ONCE .ROUTE Last administered on 12/16/17 13:45; Start 12/16/17 at 12:15; Stop 12/16/17 at 12:16 ; Status DC Bupivacaine HCl/ Epinephrine Bitart (Sensorcaine-Epinephrine Pf 0.5% Inj) 30 ml STK-MED ONCE .ROUTE Last administered on 12/16/17 13:45; Start 12/16/17 at 12: 16; Stop 12/16/17 at 12:17; Status DC Methylprednisolone Acetate (Depo-Medrol Inj) 40 mg STK-MED ONCE .ROUTE ; Start 12/16/17 at 12:16; Stop 12/16/17 at 12:17; Status DC Gelatin (Gelfoam 100 Top) 1 foam STK-MED ONCE .ROUTE Last administered on 13:45; Start 12/16/17 at 12:16; Stop 12/16/17 at 12:17; Status DC Lactated Ringer's 1,000 ml @ 30 mls/hr Q24H PRN IV SEE LABEL COMMENTS; Start at 12:45; Stop 12/19/17 at 12:44 Sodium Chloride 500 ml @ 30 mls/hr [id number] PRN IV SEE LABEL COMMENTS; Start at 12:45; Stop 12/19/17 at 12:44 Metoprolol Tartrate (Lopressor) 25 mg GOLD BUYER PRN PO SEE LABEL COMMENTS; Start 12/16/17 at 12:45; Stop 12/19/17 at 12:44 Povidone Iodine (Betadine 5% Antisepsis Kit) 1 applic GOLD BUYER PRN EACH NARE SEE LABEL COMMENTS; Start 12/16/17 at 12:45; Stop 12/19/17 at 12:44 Chlorhexidine Gluconate (Chlorhexidine 2% Cloth) 3 pack GOLD BUYER PRN TOPICAL SEE LABEL COMMENTS; Start 12/16/17 at 12:45; Stop 12/19/17 at 12:44 Vancomycin HCl (Vancomycin Inj) 1,000 mg STK-MED ONCE .ROUTE Last administered on 12/16/17 13:26; Start 12/16/17 at 12:57; Stop 12/16/17 at 12:58; Status DC Sodium Chloride 250 ml @ As Directed STK-MED ONCE .ROUTE Last administered on 12/16/17 13:26; Start 12/16/17 at 12:57; Stop 12/16/17 at 12:58; Status DC Sodium Chloride (NS Flush) 2 ml UNSCH PRN IV FLUSH FLUSH AFTER USING IV ACCESS Last administered on 12/17/17 22:30; Start 12/16/17 at 14:45 Sodium Chloride (NS Flush) 2 ml BID IV FLUSH Last administered on 12/17/17at 21: 24; Start 12/16/17 at 21:00 Cefazolin Sodium 1000 mg/Sodium Chloride 100 ml @ 200 mls/hr Q8H IV Last administered on 12/17/17at 08:07; Start 12/16/17 at 17:00; Stop 12/17/17 at 09:29 ; Status DC Al Hydrox/Mg Hydrox/Simethicone (Mag-Al Plus Susp Liq) 30 ml Q6H PRN PO DYSPEPSIA; Start 12/16/17 at 14:45 Ondansetron HCl (Zofran Inj) 4 mg Q6H PRN IV PUSH NAUSEA OR VOMITING Last administered on 12/18/17at 08:27; Start 12/16/17 at 14:45 Promethazine HCl (Phenergan Inj) 25 mg Q4H PRN IM NAUSEA OR VOMITING Last administered on 12/18/17at 02:34; Start 12/16/17 at 14:45 Oxycodone/ Acetaminophen (Percocet 5-325 Mg) 1 tab Q4H PRN PO PAIN SCALE 1 TO 5; Start 12/16/17 at 14:45 Oxycodone/ Acetaminophen (Percocet 5-325 Mg) 2 tab Q4H PRN PO PAIN SCALE 6 TO 10 Last administered on 12/18/17at 08:27; Start 12/16/17 at 14:45 Morphine Sulfate (Morphine Inj) 2 mg Q2H PRN IV PUSH breakthrough pain> 6 Last administered on 12/17/17at 22:30; Start 12/16/17 at 14:45 Cyclobenzaprine HCl (Flexeril) 10 mg Q8H PRN PO MUSCLE SPASM; Start 12/16/17 at 14:45; Stop 12/17/17 at 17:32; Status DC Clonidine (Catapres) 0.1 mg Q6H PRN PO SYS BP GREATER THAN 170 MMHG; Start at 14:45 Menthol (Salvisa Kenrick) 1 lozenge UNSCH PRN BUCCAL SORE THROAT; Start 12/16/17 at 14:45 Zolpidem Tartrate (Ambien) 5 mg HS PRN PO INSOMNIA; Start 12/16/17 at 21:00 Albuterol Sulfate (Albuterol Neb) 2.5 mg Q4HR NEB PRN NEB WHEEZING; Start 12/16 at 14:45 Magnesium Hydroxide (Milk Of Magnesia Liq) 30 ml Q12H PRN PO Mild constipation ; Start 12/16/17 at 14:45 Sennosides (Senokot) 17.2 mg Q12H PRN PO Moderate constipation; Start 12/16/17 at 14:45 Bisacodyl (Dulcolax Supp) 10 mg DAILY PRN RECTAL SEVERE CONSITIPATION; Start at 14:45 Lactulose (Lactulose Liq) 30 ml DAILY PRN PO SEVERE CONSITIPATION; Start at 14:45 Meperidine HCl (*DEMEROL INJ PERIprocedural ONLY) 25 mg STK-MED ONCE .ROUTE Last administered on 12/16/17at 14:51; Start 12/16/17 at 14:51; Stop 12/16/17 at 14:52; Status DC Morphine Sulfate (*morphine INJ PERIprocedure ONLY) 8 mg STK-MED ONCE .ROUTE Last administered on 12/16/17at 15:05; Start 12/16/17 at 15:05; Stop 12/16/17 at 15:06; Status DC Midazolam HCl (Versed Inj) 2 mg STK-MED ONCE .ROUTE ; Start 12/16/17 at 15:14; Stop 12/16/17 at 15:15; Status DC Fentanyl Citrate (fentaNYL INJ) 200 mcg STK-MED ONCE .ROUTE ; Start 12/16/17 at 15:14; Stop 12/16/17 at 15:15; Status DC Ondansetron HCl (*ZOFRAN INJ PERIprocedural ONLY) 4 mg STK-MED ONCE .ROUTE Last administered on 12/16/17at 15:20; Start 12/16/17 at 15:20; Stop 12/16/17 at 15:21; Status DC Miscellaneous Information ALL NURSING DEPARTME... UNSCH PRN .XX SEE LABEL COMMENTS; Start 12/16/17 at 14:47; Stop 12/17/17 at 14:46; Status DC Sodium Hyaluronate/ Chondriotin Sulf (Viscoat 0.75 ml Opht Irrig Soln) 0.75 ml ONCE ONCE RIGHT EYE ; Start 12/16/17 at 19:00; Stop 12/16/17 at 19:01; Status Cancel Sodium Hyaluronate/ Chondriotin Sulf (Viscoat Opth Irr) 0.75 ml ONCE ONCE RIGHT EYE Last administered on 12/16/17at 20:04; Start 12/16/17 at 19:45; Stop 12/16/17 at 19:46; Status DC Cyclobenzaprine HCl (Flexeril) 5 mg Q8H PRN PO MUSCLE SPASM Last administered on 12/18/17at 08:27; Start 12/17/17 at 17:45 Senna/Docusate Sodium (Ivory-Colace) 1 tab BID PRN PO MILD CONSTIPATIN; Start at 17:45 Miscellaneous (Pill Splitter) 1 ea UNSCH PRN OTHER SEE LABEL COMMENTS; Start at 17:45 A/P Assessment and Plan 37-year-old female with history of diabetes, hypertension, hypothyroidism, asthma, chronic back pain, herniated disc, sciatica, neuropathy, presents with worsening low back pain, weakness, and incontinence. Lumbar Radiculopathy with Disc Protrusion - Lumbar spine MRI showed large disc extrusion at L5-S1 central and right paracentral, extending inferior to the level of the disc space and causing significant neural impingement upon the S1 nerve root. -Status post Right L5-S1 hemilaminotomy with microdiscectomy; microsurgical technique on 12/16. -PT consulted. Management per neurosurgeon. -Pain uncontrolled. Patient does not want me to change her pain regimen. Her exam is the same. Further management per neurosurgeon. Emesis -May be postop. Continue supportive care. Patient stated unlikely Percocet since she has been on this for many years. Hypertension: BP currently borderline low -Once med list updated can resume home medication. Diabetes Mellitus: with reported allergy to novolin/insulin -[employer]erg[employer] Machine [employer] consulted. Continue management per cleaning specialist. Hypothyroidism: chronic -Continue home medication. Asthma: chronic, not in exacerbation -continue albuterol prn DVT Prophylaxis: teds/DEWAYNEs Mayra Sarmiento MD Dec 18, 2017 12:29
[2017-12-18] MEDS: SODIUM CHLOR 0.9% 1000 ML INJ 1,000 ML IV SCH ×2 (12:53→22:03)
--- NOTE | 2017-12-18 13:47 | HHI.NSPN ---
History Chief Complaint: Right posterior leg pain. Interval History Continues to complain of radiating pain down the right leg. Reports the pain is unchanged from preop. Also complains of pain at the level of the piriformis muscle Exam Results Vital Signs Date Time Temp Pulse Resp B/P (MAP) Pulse Ox O2 Delivery O2 Flow Rate FiO2 12/18/17 11:37 98.5 86 18 110/66 (81) 96 12/16/17 20:11 Nasal Cannula 2.00 Intake and Output 12/18/17 12/18/17 12/19/17 08:00 16:00 00:00 Intake Total 240 ml Balance 240 ml Physical Examination Plantar and dorsiflexion of the feet appears normal Sensation is intact to touch Ankle jerk on the right is absent Marked tenderness over the trochanteric bursa on the right Tenderness over the area of the piriformis muscle Medical Decision Making Impression and Plan Continued pain postop. Has not been out of bed yet Had a long discussion with the patient and her family concerning the pain. Have advised increase mobilization. Have also explained to patient and mother that her pain may be coming from a trochanteric bursitis with some contribution from the piriformis muscle. Andrew Saleh MD Dec 18, 2017 13:47
[2017-12-18] MEDS: SODIUM CHLORIDE 0.9% FLUSH 10 ML FLUSH IV FLUSH SCH ×2 (15:20→21:00)
[2017-12-18 15:44] VITALS: BP 109/63; PULSE 85; RESP 19; TEMP 98.4; O2SAT 96
[2017-12-18 19:02] VITALS: BP 105/58; PULSE 90; RESP 19; TEMP 99; O2SAT 94
[2017-12-18] MEDS: DEXTROAMPHETAMINE/AMPHETAMINE 20 MG TAB PO SCH (21:00)
[2017-12-18] MEDS: RAMIPRIL 5 MG CAP PO SCH (21:59)
[2017-12-18 23:45] VITALS: BP 97/56; PULSE 90; RESP 17; TEMP 98; O2SAT 93
[2017-12-19] MEDS: SODIUM CHLOR 0.9% 1000 ML INJ 1,000 ML IV SCH ×3 (00:53→21:43)
[2017-12-19 03:05] VITALS: BP 97/62; PULSE 93; RESP 16; TEMP 98.7; O2SAT 98
[2017-12-19] MEDS: LEVOTHYROXINE SODIUM 75 MCG TAB PO SCH (05:39)
[2017-12-19] MEDS: LEVOTHYROXINE SODIUM 100 MCG TAB PO SCH (05:39)
[2017-12-19 08:00] VITALS: BP 100/59; PULSE 92; RESP 18; TEMP 98.4; O2SAT 97
[2017-12-19] MEDS: RAMIPRIL 5 MG CAP PO SCH ×2 (09:00→20:34)
[2017-12-19] MEDS: ONDANSETRON HCL 4 MG/2 ML VIAL IV PUSH PRN ×2 (09:50→22:24)
[2017-12-19] MEDS: SODIUM CHLORIDE 0.9% FLUSH 10 ML FLUSH IV FLUSH SCH ×2 (09:52→20:34)
[2017-12-19] MEDS: GABAPENTIN 300 MG CAP PO SCH ×3 (09:53→17:00)
[2017-12-19] MEDS: DEXTROAMPHETAMINE/AMPHETAMINE 20 MG TAB PO SCH ×2 (09:53→20:34)
[2017-12-19] MEDS: oxyCODONE/ACETAMINOPHEN 5 MG/325 MG TAB PO PRN ×4 (09:54→22:24)
[2017-12-19] MEDS: PANTOPRAZOLE SOD 40 MG DELAYED RELEASE TAB PO SCH (09:54)
--- NOTE | 2017-12-19 11:09 | HHI.NSPN ---
(Jourdan De León) History Chief Complaint: Right posterior leg pain. (Jourdan De León) Interval History This is a 37-year-old female with a 6-month history of low back pain with radiation to the right leg with numbness in the plantar aspect of the feet, right more than left; however, the pain is mostly in the right side. She has undergone conservative management including physical therapy and interventional pain management without relief. Symptoms have progressed and she also saw a neurosurgeon a couple of weeks ago in [place], and she relates to me that he informed her that she likely would benefit from surgery, but he would not operate on her given her diabetes. She has had intermittent urinary incontinence for the past 4 or 5 months and the last 3 days, also noticed that whenever she tries to stand on her toes, her right foot gives out on her. She has been walking with a limp and uses a cane. She presented to the emergency room early this morning. An MRI scan was obtained, which reveals a large disk herniation at the L5-S1 level, eccentric to the right side with moderate spinal stenosis. There is some disk degeneration and endplate changes noted also. She had a previous MRI scan in August 2017 and compared to that, there appears to have been an increase in size of the disk herniation. She relates to me that she cannot live with the current level of discomfort. She has been using Percocet, usually 3 tablets a day. She was also placed on oral and IV steroids, which is not helping with her pain. She and her mother are requesting that we undertake surgical intervention. She also relates chronic history of some neck discomfort, but this is intermittent with intermittent numbness in her hands. 12/15/17: Pt complains of pain in RLE in posterior aspect. The pain has improved some with current treatment but still very uncomfortable. She wants to proceed with surgery tomorrow. 12/19/17: Pt complains of pain in right buttocks and hip area. She also complains of pain in leg but not to same degree as preop. She states she has incontinence but no perirectal numbness. She has diarrhea from laxatives. She has numbness on the bottom of her right foot. (Jourdan De León) Review of Systems General: Negative for: fever, chills, insomnia Respiratory: Negative for: shortness of breath, cough, sputum Cardiovascular: Negative for: chest pain, palpitations, orthopnea Gastrointestinal: Positive for: diarrhea, Negative for: nausea, vomitting, constipation (Jourdan De León) Exam Results Vital Signs Date Time Temp Pulse Resp B/P (MAP) Pulse Ox O2 Delivery O2 Flow Rate FiO2 12/19/17 08:00 98.4 92 18 100/59 (73) 97 12/16/17 20:11 Nasal Cannula 2.00 Intake and Output 12/19/17 12/19/17 12/20/17 08:00 16:00 00:00 Intake Total 720 ml Balance 720 ml (Jourdan De León) Physical Examination General: Pt awake and alert resting in bed on her left side in NAD. Resp: CTA bilaterally Heart: NSR no murmurs Abd: Soft positive bs Skin: Incision clean and dry. Steri strips intact. No signs of infection. Muscle: Movs LEs with good strength mild giveaway right EHL and plantar flexion weakness compared to left. Pt states she is ambulating to the bathroom. Neuro: Pt awake and alert. She follows commands. Sensation intact in LEs. (Jourdan De León) Lab, Micro, Other Results Last Impressions Lumbar Spine X-Ray 12/16/17 0000 Signed Impressions: Service Date/Time: Saturday, December 16, 2017 13:09 - CONCLUSION: Lateral fluoroscopic image demonstrates temporary probe overlying the posterior elements at superior L5 level. Jourdan Magallanes MD Chest X-Ray 12/14/17 0000 Signed Impressions: Service Date/Time: Thursday, December 14, 2017 17:38 - CONCLUSION: No acute disease. Lui Jones MD FACR Lumbar Spine MRI 12/13/17 0000 Signed Impressions: Service Date/Time: Wednesday, December 13, 2017 23:37 - CONCLUSION: 1. Large disc extrusion at L5-S1 central and right paracentral, extending inferior to the level of the disc space and causing significant neural impingement upon the S1 nerve root as it courses through the bony spinal canal. Amado Sorensen MD Laboratory Tests Test 12/19/17 02:41 Random Glucose 87 MG/DL 12/19/17 12/19/17 12/20/17 15:00 23:00 07:00 Intake Total 720 ml Balance 720 ml Intake Oral 720 ml # Voids 3 # Bowel Movements 0 (Jourdan De León) Medical Decision Making Impression and Plan A: 1. Chronic low back pain with right L5 and S1 radiculopathy from an L5-S1 disk herniation, which has progressed. She has failed conservative treatment measures. Pt underwent a right L5/S1 laminectomy with microdiscectomy on 12/16/17. 2. Insulin-dependent diabetes mellitus. 3. Asthma. 4. Hypothyroidism. PLAN: Encouraged pt to ambulate. Continue with pain control Discharge planning. (Jourdan De León) Attending Statement Neurosurgery clear for discharge. (Tony Worthy MD) Jourdan De León Dec 19, 2017 11:09 Tony Worthy MD Dec 19, 2017 14:12
--- NOTE | 2017-12-19 11:54 | HHI.PR ---
Subjective Remarks Follow-up for lower back pain Patient stated that she has been vomiting more and has diarrhea. She feels like she is constipated. Patient also asking for boost. Her mother at the bedside during interview. She remains afebrile. She has no other complaints. Patient stated that she has been ambulating more yesterday. Objective Vitals Vital Signs Date Time Temp Pulse Resp B/P (MAP) Pulse Ox O2 Delivery O2 Flow Rate FiO2 12/19/17 08:00 98.4 92 18 100/59 (73) 97 12/19/17 03:05 98.7 93 16 97/62 (74) 98 12/18/17 23:45 98.0 90 17 97/56 (70) 93 12/18/17 19:02 99.0 90 19 105/58 (74) 94 12/18/17 15:44 98.4 85 19 109/63 (78) 96 I/O 12/18/17 12/18/17 12/18/17 12/19/17 12/19/17 12/19/17 07:00 15:00 23:00 07:00 15:00 23:00 Intake Total 240 ml 720 ml Balance 240 ml 720 ml Intake Oral 240 ml 720 ml # Voids 3 3 # Bowel Movements 2 0 Result Diagram: 12/15/17 0842 12/19/17 0241 Objective Remarks GENERAL: in NAD CARDIOVASCULAR: Regular rate and rhythm without murmurs, gallops, or rubs. RESPIRATORY: Breath sounds equal bilaterally. No accessory muscle use. GASTROINTESTINAL: Abdomen soft, non-tender, nondistended. MUSCULOSKELETAL: right foot 4/5 plantar and dorsiflex. 4/5 right LE strength Left lower extremity intact 5/5 Medications and IVs Current Medications Sodium Chloride (NS Flush) 2 ml UNSCH PRN IV FLUSH FLUSH AFTER USING IV ACCESS ; Start 12/14/17 at 04:15; Stop 12/16/17 at 16:05; Status DC Sodium Chloride (NS Flush) 2 ml BID IV FLUSH Last administered on 12/15/17at 21: 25; Start 12/14/17 at 09:00; Stop 12/16/17 at 16:05; Status DC Naloxone HCl (Narcan Inj) 0.4 mg UNSCH PRN IV PUSH SEE LABEL COMMENTS; Start at 04:15 Ketorolac Tromethamine (Toradol Inj) 30 mg ONCE ONCE IV PUSH Last administered on 12/14/17at 04:53; Start 12/14/17 at 04:15; Stop 12/14/17 at 04:16 ; Status DC Diazepam (Valium) 10 mg ONCE ONCE PO Last administered on 12/14/17at 04:53; Start 12/14/17 at 04:15; Stop 12/14/17 at 04:16; Status DC Prednisone (Deltasone) 60 mg ONCE ONCE PO ; Start 12/14/17 at 04:15; Stop 12/14 at 04:16; Status DC Dexamethasone Sodium Phosphate (Decadron Inj) 10 mg ONCE ONCE IV PUSH Last administered on 12/14/17at 04:52; Start 12/14/17 at 04:15; Stop 12/14/17 at 04:16 ; Status DC Dexamethasone Sodium Phosphate (Decadron Inj) 4 mg Q6HR IV PUSH Last administered on 12/14/17at 09:57; Start 12/14/17 at 10:00; Stop 12/14/17 at 11:33 ; Status DC Dexamethasone Sodium Phosphate (Decadron Inj) 4 mg Q6H IV PUSH Last administered on 12/14/17at 16:13; Start 12/14/17 at 16:00; Stop 12/14/17 at 17:05 ; Status DC Acetaminophen (Tylenol) 650 mg Q6H PRN PO headache/fever >101.5; Start at 14:00 Ketorolac Tromethamine (Toradol Inj) 15 mg Q6H PRN IV PUSH pain scale 3-10 Last administered on 12/14/17at 14:33; Start 12/14/17 at 14:00; Stop 12/14/17 at 17:05; Status DC Dextrose (D50w (Vial) Inj) 50 ml UNSCH PRN IV PUSH HYPOGLYCEMIA-SEE COMMENTS; Start 12/14/17 at 14:00 Glucagon (Glucagon Inj) 1 mg UNSCH PRN OTHER HYPOGLYCEMIA-SEE COMMENTS; Start 12/14/17 at 14:00 Oxycodone/ Acetaminophen (Percocet 5-325 Mg) 1 tab Q6H PRN PO pain 3-10 Last administered on 12/16/17at 09:26; Start 12/14/17 at 17:00; Stop 12/16/17 at 14:47 ; Status DC Al Hydrox/Mg Hydrox/Simethicone (Mag-Al Plus Susp Liq) 30 ml Q6H PRN PO DYSPEPSIA; Start 12/14/17 at 17:00; Stop 12/16/17 at 16:05; Status DC Ondansetron HCl (Zofran Inj) 4 mg Q6H PRN IV PUSH NAUSEA OR VOMITING Last administered on 12/16/17at 04:03; Start 12/14/17 at 17:00; Stop 12/16/17 at 16:06 ; Status DC Acetaminophen (Tylenol) 650 mg Q4H PRN PO TEMPERATURE > 101.5 F; Start at 17:00; Stop 12/14/17 at 17:08; Status DC Albuterol Sulfate (Albuterol Neb) 2.5 mg Q4HR NEB PRN NEB WHEEZING; Start 12/14 at 17:00; Stop 12/16/17 at 16:06; Status DC Senna/Docusate Sodium (Ivory-Colace) 1 tab BID PO Last administered on at 21:25; Start 12/14/17 at 21:00; Stop 12/17/17 at 17:33; Status DC Magnesium Hydroxide (Milk Of Magnesia Liq) 30 ml Q12H PRN PO Mild constipation ; Start 12/14/17 at 17:00; Stop 12/16/17 at 16:06; Status DC Sennosides (Senokot) 17.2 mg Q12H PRN PO Moderate constipation; Start 12/14/17 at 17:00; Stop 12/16/17 at 16:06; Status DC Bisacodyl (Dulcolax Supp) 10 mg DAILY PRN RECTAL SEVERE CONSITIPATION; Start at 17:00; Stop 12/16/17 at 16:06; Status DC Lactulose (Lactulose Liq) 30 ml DAILY PRN PO SEVERE CONSITIPATION; Start at 17:00; Stop 12/16/17 at 16:06; Status DC Gabapentin (Neurontin) 300 mg BID PO Last administered on 12/15/17at 09:12; Start 12/14/17 at 21:00; Stop 12/15/17 at 10:42; Status DC Gabapentin (Neurontin) 300 mg TID PO Last administered on 12/19/17 09:53; Start 12/15/17 at 13:00 Patient Own Medication PT OWN MED: INSU... DAILY SQ ; Start 12/15/17 at 12:15; Status Future Hold Vancomycin HCl 1000 mg/Sodium Chloride 250 ml @ 250 mls/hr APPLICATIONS SPECIALIST IV ; Start 12/15/17 at 14:30; Stop 12/18/17 at 14:29; Status DC Pantoprazole Sodium (Protonix) 40 mg ONCE ONCE PO Last administered on at 21:25; Start 12/15/17 at 21:00; Stop 12/15/17 at 21:13; Status DC Pantoprazole Sodium (Protonix) 40 mg DAILY PO Last administered on 12/19/17at 09 :54; Start 12/16/17 at 09:00 Sodium Chloride 500 ml @ 500 mls/hr BOLUS ONCE IV Last administered on 05:29; Start 12/16/17 at 05:00; Stop 12/16/17 at 05:59; Status DC Vancomycin HCl (Vancomycin Inj) 1,000 mg STK-MED ONCE .ROUTE Last administered on 12/16/17 13:45; Start 12/16/17 at 12:15; Stop 12/16/17 at 12:16; Status DC Thrombin (Thrombin Top Soln) 10,000 units STK-MED ONCE .ROUTE Last administered on 12/16/17 13:45; Start 12/16/17 at 12:15; Stop 12/16/17 at 12:16 ; Status DC Bupivacaine HCl/ Epinephrine Bitart (Sensorcaine-Epinephrine Pf 0.5% Inj) 30 ml STK-MED ONCE .ROUTE Last administered on 12/16/17 13:45; Start 12/16/17 at 12: 16; Stop 12/16/17 at 12:17; Status DC Methylprednisolone Acetate (Depo-Medrol Inj) 40 mg STK-MED ONCE .ROUTE ; Start 12/16/17 at 12:16; Stop 12/16/17 at 12:17; Status DC Gelatin (Gelfoam 100 Top) 1 foam STK-MED ONCE .ROUTE Last administered on 13:45; Start 12/16/17 at 12:16; Stop 12/16/17 at 12:17; Status DC Lactated Ringer's 1,000 ml @ 30 mls/hr Q24H PRN IV SEE LABEL COMMENTS; Start at 12:45; Stop 12/19/17 at 12:44 Sodium Chloride 500 ml @ 30 mls/hr [id number] PRN IV SEE LABEL COMMENTS; Start at 12:45; Stop 12/19/17 at 12:44 Metoprolol Tartrate (Lopressor) 25 mg APPLICATIONS SPECIALIST PRN PO SEE LABEL COMMENTS; Start 12/16/17 at 12:45; Stop 12/19/17 at 12:44 Povidone Iodine (Betadine 5% Antisepsis Kit) 1 applic APPLICATIONS SPECIALIST PRN EACH NARE SEE LABEL COMMENTS; Start 12/16/17 at 12:45; Stop 12/19/17 at 12:44 Chlorhexidine Gluconate (Chlorhexidine 2% Cloth) 3 pack APPLICATIONS SPECIALIST PRN TOPICAL SEE LABEL COMMENTS; Start 12/16/17 at 12:45; Stop 12/19/17 at 12:44 Vancomycin HCl (Vancomycin Inj) 1,000 mg STK-MED ONCE .ROUTE Last administered on 12/16/17at 13:26; Start 12/16/17 at 12:57; Stop 12/16/17 at 12:58; Status DC Sodium Chloride 250 ml @ As Directed STK-MED ONCE .ROUTE Last administered on 12/16/17at 13:26; Start 12/16/17 at 12:57; Stop 12/16/17 at 12:58; Status DC Sodium Chloride (NS Flush) 2 ml UNSCH PRN IV FLUSH FLUSH AFTER USING IV ACCESS Last administered on 12/17/17at 22:30; Start 12/16/17 at 14:45 Sodium Chloride (NS Flush) 2 ml BID IV FLUSH Last administered on 12/19/17at 09: 52; Start 12/16/17 at 21:00 Cefazolin Sodium 1000 mg/Sodium Chloride 100 ml @ 200 mls/hr Q8H IV Last administered on 12/17/17at 08:07; Start 12/16/17 at 17:00; Stop 12/17/17 at 09:29 ; Status DC Al Hydrox/Mg Hydrox/Simethicone (Mag-Al Plus Susp Liq) 30 ml Q6H PRN PO DYSPEPSIA; Start 12/16/17 at 14:45 Ondansetron HCl (Zofran Inj) 4 mg Q6H PRN IV PUSH NAUSEA OR VOMITING Last administered on 12/19/17at 09:50; Start 12/16/17 at 14:45 Promethazine HCl (Phenergan Inj) 25 mg Q4H PRN IM NAUSEA OR VOMITING Last administered on 12/18/17at 02:34; Start 12/16/17 at 14:45 Oxycodone/ Acetaminophen (Percocet 5-325 Mg) 1 tab Q4H PRN PO PAIN SCALE 1 TO 5 Last administered on 12/18/17at 15:19; Start 12/16/17 at 14:45 Oxycodone/ Acetaminophen (Percocet 5-325 Mg) 2 tab Q4H PRN PO PAIN SCALE 6 TO 10 Last administered on 12/19/17at 09:54; Start 12/16/17 at 14:45 Morphine Sulfate (Morphine Inj) 2 mg Q2H PRN IV PUSH breakthrough pain> 6 Last administered on 12/17/17at 22:30; Start 12/16/17 at 14:45 Cyclobenzaprine HCl (Flexeril) 10 mg Q8H PRN PO MUSCLE SPASM; Start 12/16/17 at 14:45; Stop 12/17/17 at 17:32; Status DC Clonidine (Catapres) 0.1 mg Q6H PRN PO SYS BP GREATER THAN 170 MMHG; Start at 14:45 Menthol ([place]) 1 lozenge UNSCH PRN BUCCAL SORE THROAT; Start 12/16/17 at 14:45 Zolpidem Tartrate (Ambien) 5 mg HS PRN PO INSOMNIA; Start 12/16/17 at 21:00 Albuterol Sulfate (Albuterol Neb) 2.5 mg Q4HR NEB PRN NEB WHEEZING; Start 12/16 at 14:45 Magnesium Hydroxide (Milk Of Magnesia Liq) 30 ml Q12H PRN PO Mild constipation ; Start 12/16/17 at 14:45 Sennosides (Senokot) 17.2 mg Q12H PRN PO Moderate constipation; Start 12/16/17 at 14:45 Bisacodyl (Dulcolax Supp) 10 mg DAILY PRN RECTAL SEVERE CONSITIPATION; Start at 14:45 Lactulose (Lactulose Liq) 30 ml DAILY PRN PO SEVERE CONSITIPATION; Start at 14:45 Meperidine HCl (*DEMEROL INJ PERIprocedural ONLY) 25 mg STK-MED ONCE .ROUTE Last administered on 12/16/17at 14:51; Start 12/16/17 at 14:51; Stop 12/16/17 at 14:52; Status DC Morphine Sulfate (*morphine INJ PERIprocedure ONLY) 8 mg STK-MED ONCE .ROUTE Last administered on 12/16/17at 15:05; Start 12/16/17 at 15:05; Stop 12/16/17 at 15:06; Status DC Midazolam HCl (Versed Inj) 2 mg STK-MED ONCE .ROUTE ; Start 12/16/17 at 15:14; Stop 12/16/17 at 15:15; Status DC Fentanyl Citrate (fentaNYL INJ) 200 mcg STK-MED ONCE .ROUTE ; Start 12/16/17 at 15:14; Stop 12/16/17 at 15:15; Status DC Ondansetron HCl (*ZOFRAN INJ PERIprocedural ONLY) 4 mg STK-MED ONCE .ROUTE Last administered on 12/16/17at 15:20; Start 12/16/17 at 15:20; Stop 12/16/17 at 15:21; Status DC Miscellaneous Information ALL NURSING DEPARTME... UNSCH PRN .XX SEE LABEL COMMENTS; Start 12/16/17 at 14:47; Stop 12/17/17 at 14:46; Status DC Sodium Hyaluronate/ Chondriotin Sulf (Viscoat 0.75 ml Opht Irrig Soln) 0.75 ml ONCE ONCE RIGHT EYE ; Start 12/16/17 at 19:00; Stop 12/16/17 at 19:01; Status Cancel Sodium Hyaluronate/ Chondriotin Sulf (Viscoat Opth Irr) 0.75 ml ONCE ONCE RIGHT EYE Last administered on 12/16/17at 20:04; Start 12/16/17 at 19:45; Stop 12/16/17 at 19:46; Status DC Cyclobenzaprine HCl (Flexeril) 5 mg Q8H PRN PO MUSCLE SPASM Last administered on 12/18/17at 15:20; Start 12/17/17 at 17:45 Senna/Docusate Sodium (Ivory-Colace) 1 tab BID PRN PO MILD CONSTIPATIN; Start at 17:45 Miscellaneous (Pill Splitter) 1 ea UNSCH PRN OTHER SEE LABEL COMMENTS; Start at 17:45 Sodium Chloride 1,000 ml @ 100 mls/hr Q10H IV Last administered on 12/19/17at 00:53; Start 12/18/17 at 12:30 Amphetamine/ Dextroamphetamine (Adderall) 20 mg BID PO Last administered on at 09:53; Start 12/18/17 at 21:00 Levothyroxine Sodium (Synthroid) 75 mcg DAILY@0600 PO Last administered on 12/19at 05:39; Start 12/19/17 at 06:00 Ramipril (Altace) 10 mg BID PO Last administered on 12/18/17at 21:59; Start at 21:00 Levothyroxine Sodium (Synthroid) 100 mcg DAILY@0600 PO Last administered on at 05:39; Start 12/19/17 at 06:00 A/P Assessment and Plan 37-year-old female with history of diabetes, hypertension, hypothyroidism, asthma, chronic back pain, herniated disc, sciatica, neuropathy, presents with worsening low back pain, weakness, and incontinence. Lumbar Radiculopathy with Disc Protrusion - Lumbar spine MRI showed large disc extrusion at L5-S1 central and right paracentral, extending inferior to the level of the disc space and causing significant neural impingement upon the S1 nerve root. -Status post Right L5-S1 hemilaminotomy with microdiscectomy; microsurgical technique on 12/16. -PT consulted. Management per neurosurgeon. -Continue current pain regimen. Emesis -Per patient she has history of gastroparesis that is intermittent. Will check with [facility]. Continue with supportive care with IV fluids and antiemetics. Diarrhea -Check C. difficile. Narcolepsy/gastroparesis/GERD -Home medication resumed. Diabetes Mellitus: with reported allergy to novolin/insulin -Certified [employer] Engineer consulted. Continue management per seedling puller. Hypothyroidism: chronic -Continue home medication. Asthma: chronic, not in exacerbation -continue albuterol prn DVT Prophylaxis: teds/SCDs Mayra Sarmiento MD Dec 19, 2017 11:54
[2017-12-19 12:00] VITALS: BP 94/58; PULSE 105; RESP 18; TEMP 98.2; O2SAT 97
--- NOTE | 2017-12-19 13:44 | RADRPT ---
EXAM DATE/TIME: 12/19/2017 12:54 [facility] COMPARISON: No previous studies available for comparison. INDICATIONS : Abdominal pain. Evaluate for possible obstruction. MEDICAL HISTORY : diabetes, asthma, gastroparesis SURGICAL HISTORY : spine surgery 12/16/17 ENCOUNTER: Initial ACUITY: 4 - 6 days PAIN SCORE: 7/10 LOCATION: Bilateral abdomen FINDINGS: 2 AP supine views of the abdomen and pelvis were obtained and demonstrate gas and stool noted segment ally in the colon. There are several loops of nondilated air-containing small bowel in the midabdomen with no evidence of free air or mass effect on this supine study. The lung bases are clear. The bony structures are intact. CONCLUSION: Mildly nonspecific, nonobstructive bowel gas pattern which may represent a mild ileus and/or gastroenteritis. Lawrence Saab MD on December 19, 2017 at 13:41 Board Certified Radiologist. This report was verified electronically.
[2017-12-19 16:00] VITALS: BP 98/54; PULSE 93; RESP 18; TEMP 98.2; O2SAT 99
[2017-12-19] MEDS ORDERED: RAMI5CAP PO (16:03)
[2017-12-19 20:00] VITALS: BP 98/57; PULSE 91; RESP 17; TEMP 98.5; O2SAT 97
[2017-12-19] MEDS: CYCLOBENZAPRINE HCL 10 MG TAB PO PRN (22:23)
[2017-12-19] MEDS: metroNIDAZOLE 500 MG TAB PO SCH (23:26)
[2017-12-19 23:37] VITALS: BP 96/55; PULSE 91; RESP 18; TEMP 98.8; O2SAT 96
[2017-12-20 02:31] VITALS: BP 102/57; PULSE 89; RESP 17; TEMP 98.1; O2SAT 99
[2017-12-20] MEDS: oxyCODONE/ACETAMINOPHEN 5 MG/325 MG TAB PO PRN ×5 (03:34→21:34)
[2017-12-20] MEDS: LEVOTHYROXINE SODIUM 100 MCG TAB PO SCH (06:27)
[2017-12-20] MEDS: LEVOTHYROXINE SODIUM 75 MCG TAB PO SCH (06:27)
[2017-12-20] MEDS: metroNIDAZOLE 500 MG TAB PO SCH ×3 (06:27→21:34)
[2017-12-20] MEDS: SODIUM CHLOR 0.9% 1000 ML INJ 1,000 ML IV SCH ×2 (06:38→16:37)
[2017-12-20 08:00] VITALS: BP 87/52; PULSE 80; RESP 16; TEMP 97.9; O2SAT 97
[2017-12-20] MEDS: SODIUM CHLORIDE 0.9% FLUSH 10 ML FLUSH IV FLUSH SCH ×2 (09:00→19:45)
[2017-12-20] MEDS: RAMIPRIL 5 MG CAP PO SCH (09:00)
[2017-12-20] MEDS: DEXTROAMPHETAMINE/AMPHETAMINE 20 MG TAB PO SCH ×2 (09:07→15:22)
[2017-12-20] MEDS: GABAPENTIN 300 MG CAP PO SCH ×3 (09:07→16:38)
[2017-12-20] MEDS: PANTOPRAZOLE SOD 40 MG DELAYED RELEASE TAB PO SCH (09:08)
[2017-12-20] MEDS: CYCLOBENZAPRINE HCL 10 MG TAB PO PRN ×2 (09:08→16:38)
--- NOTE | 2017-12-20 09:42 | HHI.PR ---
Subjective Remarks in no acute distress. pain is fairly controlled. last BM was last night. no fever, nausea or vomiting. Objective Vitals Vital Signs Date Time Temp Pulse Resp B/P (MAP) Pulse Ox O2 Delivery O2 Flow Rate FiO2 12/20/17 08:00 97.9 80 16 87/52 (64) 97 12/20/17 02:31 98.1 89 17 102/57 (72) 99 12/19/17 23:37 98.8 91 18 96/55 (69) 96 12/19/17 20:00 98.5 91 17 98/57 (71) 97 12/19/17 16:00 98.2 93 18 98/54 (69) 99 12/19/17 12:00 98.2 105 18 94/58 (70) 97 I/O 12/19/17 12/19/17 12/19/17 12/20/17 12/20/17 12/20/17 07:00 15:00 23:00 07:00 15:00 23:00 Intake Total 720 ml Output Total 400 ml Balance 320 ml Intake Oral 720 ml Emesis 400 ml # Voids 4 1 # Bowel Movements 4 Result Diagram: 12/19/17 0241 Imaging Last Impressions Abdomen X-Ray 12/19/17 0000 Signed Impressions: Service Date/Time: Tuesday, December 19, 2017 12:54 - CONCLUSION: Mildly nonspecific, nonobstructive bowel gas pattern which may represent a mild ileus and/or gastroenteritis. Lawrence Saab MD Lumbar Spine X-Ray 12/16/17 0000 Signed Impressions: Service Date/Time: Saturday, December 16, 2017 13:09 - CONCLUSION: Lateral fluoroscopic image demonstrates temporary probe overlying the posterior elements at superior L5 level. Jourdan Magallanes MD Chest X-Ray 12/14/17 0000 Signed Impressions: Service Date/Time: Thursday, December 14, 2017 17:38 - CONCLUSION: No acute disease. Lui Jones MD FACR Lumbar Spine MRI 12/13/17 0000 Signed Impressions: Service Date/Time: Wednesday, December 13, 2017 23:37 - CONCLUSION: 1. Large disc extrusion at L5-S1 central and right paracentral, extending inferior to the level of the disc space and causing significant neural impingement upon the S1 nerve root as it courses through the bony spinal canal. Amado Sorensen MD Objective Remarks GENERAL: This is a well-nourished, well-developed patient, in no apparent distress. CARDIOVASCULAR: Regular rate and regular rhythm without murmurs, gallops, or rubs. RESPIRATORY: Clear to auscultation. Breath sounds equal bilaterally. No wheezes , rales, or rhonchi. GASTROINTESTINAL: Abdomen soft, non-tender, nondistended. Normal, active bowel sounds MUSCULOSKELETAL: Extremities without clubbing, cyanosis, or edema. NEURO: Alert & Oriented x4 to person, place, time, situation. Moves all ext x4 Procedures Right L5-S1 hemilaminotomy with microdiscectomy; microsurgical technique. Medications and IVs Inpatient Medications Acetaminophen (Tylenol) 650 mg Q4H PRN PO TEMPERATURE > 101.5 F; Start at 17:00; Stop 12/14/17 at 17:08; Status DC Al Hydrox/Mg Hydrox/Simethicone (Mag-Al Plus Susp Liq) 30 ml Q6H PRN PO DYSPEPSIA; Start 12/16/17 at 14:45 Albuterol Sulfate (Albuterol Neb) 2.5 mg Q4HR NEB PRN NEB WHEEZING; Start 12/16 at 14:45 Amphetamine/ Dextroamphetamine (Adderall) 20 mg BID PO Last administered on at 09:07; Start 12/18/17 at 21:00 Bisacodyl (Dulcolax Supp) 10 mg DAILY PRN RECTAL SEVERE CONSITIPATION; Start at 14:45 Cefazolin Sodium 1000 mg/Sodium Chloride 100 ml @ 200 mls/hr Q8H IV Last administered on 12/17/17at 08:07; Start 12/16/17 at 17:00; Stop 12/17/17 at 09:29 ; Status DC Chlorhexidine Gluconate (Chlorhexidine 2% Cloth) 3 pack CONSOLIDATOR PRN TOPICAL SEE LABEL COMMENTS; Start 12/16/17 at 12:45; Stop 12/19/17 at 12:44; Status DC Clonidine (Catapres) 0.1 mg Q6H PRN PO SYS BP GREATER THAN 170 MMHG; Start at 14:45 Cyclobenzaprine HCl (Flexeril) 5 mg Q8H PRN PO MUSCLE SPASM Last administered on 12/20/17at 09:08; Start 12/17/17 at 17:45 Dexamethasone Sodium Phosphate (Decadron Inj) 4 mg Q6H IV PUSH Last administered on 12/14/17at 16:13; Start 12/14/17 at 16:00; Stop 12/14/17 at 17:05 ; Status DC Dextrose (D50w (Vial) Inj) 50 ml UNSCH PRN IV PUSH HYPOGLYCEMIA-SEE COMMENTS; Start 12/14/17 at 14:00 Diazepam (Valium) 10 mg ONCE ONCE PO Last administered on 12/14/17at 04:53; Start 12/14/17 at 04:15; Stop 12/14/17 at 04:16; Status DC Gabapentin (Neurontin) 300 mg TID PO Last administered on 12/20/17at 09:07; Start 12/15/17 at 13:00 Glucagon (Glucagon Inj) 1 mg UNSCH PRN OTHER HYPOGLYCEMIA-SEE COMMENTS; Start 12/14/17 at 14:00 Ketorolac Tromethamine (Toradol Inj) 15 mg Q6H PRN IV PUSH pain scale 3-10 Last administered on 12/14/17at 14:33; Start 12/14/17 at 14:00; Stop 12/14/17 at 17:05; Status DC Lactated Ringer's 1,000 ml @ 30 mls/hr Q24H PRN IV SEE LABEL COMMENTS; Start at 12:45; Stop 12/19/17 at 12:44; Status DC Lactulose (Lactulose Liq) 30 ml DAILY PRN PO SEVERE CONSITIPATION; Start at 14:45 Levothyroxine Sodium (Synthroid) 100 mcg DAILY@0600 PO Last administered on at 06:27; Start 12/19/17 at 06:00 Magnesium Hydroxide (Milk Of Magnesia Liq) 30 ml Q12H PRN PO Mild constipation ; Start 12/16/17 at 14:45 Menthol ([place]) 1 lozenge UNSCH PRN BUCCAL SORE THROAT; Start 12/16/17 at 14:45 Metoprolol Tartrate (Lopressor) 25 mg CONSOLIDATOR PRN PO SEE LABEL COMMENTS; Start 12/16/17 at 12:45; Stop 12/19/17 at 12:44; Status DC Metronidazole (Flagyl) 500 mg Q8HR PO Last administered on 12/20/17at 06:27; Start 12/19/17 at 23:15 Miscellaneous (Pill Splitter) 1 ea UNSCH PRN OTHER SEE LABEL COMMENTS; Start at 17:45 Miscellaneous Information ALL NURSING DEPARTME... UNSCH PRN .XX SEE LABEL COMMENTS; Start 12/16/17 at 14:47; Stop 12/17/17 at 14:46; Status DC Morphine Sulfate (Morphine Inj) 2 mg Q2H PRN IV PUSH breakthrough pain> 6 Last administered on 12/17/17at 22:30; Start 12/16/17 at 14:45 Naloxone HCl (Narcan Inj) 0.4 mg UNSCH PRN IV PUSH SEE LABEL COMMENTS; Start at 04:15 Ondansetron HCl (Zofran Inj) 4 mg Q6H PRN IV PUSH NAUSEA OR VOMITING Last administered on 12/19/17at 22:24; Start 12/16/17 at 14:45 Oxycodone/ Acetaminophen (Percocet 5-325 Mg) 2 tab Q4H PRN PO PAIN SCALE 6 TO 10 Last administered on 12/20/17at 09:07; Start 12/16/17 at 14:45 Pantoprazole Sodium (Protonix) 40 mg DAILY PO Last administered on 12/20/17at 09 :08; Start 12/16/17 at 09:00 Patient Own Medication PT OWN MED: INSU... DAILY SQ ; Start 12/15/17 at 12:15; Status Future Hold Povidone Iodine (Betadine 5% Antisepsis Kit) 1 applic CONSOLIDATOR PRN EACH NARE SEE LABEL COMMENTS; Start 12/16/17 at 12:45; Stop 12/19/17 at 12:44; Status DC Prednisone (Deltasone) 60 mg ONCE ONCE PO ; Start 12/14/17 at 04:15; Stop 12/14 at 04:16; Status DC Promethazine HCl (Phenergan Inj) 25 mg Q4H PRN IM NAUSEA OR VOMITING Last administered on 12/18/17at 02:34; Start 12/16/17 at 14:45 Ramipril (Altace) 10 mg BID PO Last administered on 12/18/17at 21:59; Start at 21:00 Senna/Docusate Sodium (Ivory-Colace) 1 tab BID PRN PO MILD CONSTIPATIN; Start at 17:45 Sennosides (Senokot) 17.2 mg Q12H PRN PO Moderate constipation; Start 12/16/17 at 14:45 Sodium Hyaluronate/ Chondriotin Sulf (Viscoat Opth Irr) 0.75 ml ONCE ONCE RIGHT EYE Last administered on 12/16/17at 20:04; Start 12/16/17 at 19:45; Stop 12/16/17 at 19:46; Status DC Sodium Chloride 1,000 ml @ 100 mls/hr Q10H IV Last administered on 12/20/17at 06:38; Start 12/18/17 at 12:30 Sodium Chloride (NS Flush) 2 ml BID IV FLUSH Last administered on 12/19/17at 09: 52; Start 12/16/17 at 21:00 Vancomycin HCl 1000 mg/Sodium Chloride 250 ml @ 250 mls/hr CONSOLIDATOR IV ; Start 12/15/17 at 14:30; Stop 12/18/17 at 14:29; Status DC Zolpidem Tartrate (Ambien) 5 mg HS PRN PO INSOMNIA; Start 12/16/17 at 21:00 A/P Assessment and Plan Lumbar Radiculopathy with Disc Protrusion - Lumbar spine MRI showed large disc extrusion at L5-S1 central and right paracentral, extending inferior to the level of the disc space and causing significant neural impingement upon the S1 nerve root. -Status post Right L5-S1 hemilaminotomy with microdiscectomy; microsurgical technique on 12/16. -PT consulted. Management per neurosurgeon. -Continue pain regimen. C-diff colitis. continue Flagyl. Narcolepsy/gastroparesis/GERD -Home medication resumed. Diabetes Mellitus: with reported allergy to novolin/insulin -Creative Art Therapist consulted. -on insulin pump. -f/u as outpatient. Hypothyroidism: chronic -Continue home medication. Asthma: chronic, not in exacerbation -continue albuterol prn DVT Prophylaxis: teds/SCDs Discharge Planning dc home within the next 24 hrs if stable. f/u; pcp, neurosurgery and endocrinology. see med list. d/w the patient. Sujey Aleman MD Dec 20, 2017 09:42
[2017-12-20] MEDS ORDERED: CYCL10TA PO (09:44)
[2017-12-20] MEDS ORDERED: OXYC1TAB63 PO (09:44)
[2017-12-20] MEDS ORDERED: METR-1 PO (09:44)
--- NOTE | 2017-12-20 09:46 | HHI.DS ---
Discharge Summary Admission Date Dec 16, 2017 at 11:01 Discharge Date: Dec 20, 2017 Admitting Diagnosis Lumbar radiculopathy (1) Lumbar disc disease with radiculopathy ICD Code: M51.16 - Intervertebral disc disorders with radiculopathy, lumbar region Diagnosis: Principal Status: Acute Procedures Right L5-S1 hemilaminotomy with microdiscectomy; microsurgical technique. Brief History - From Admission Written by Hannah Calderon, acting as scribe for Dr. Bowser on 12/14/17 at 13:40. 37-year-old female with history of diabetes, hypertension, hypothyroidism, chronic back pain, herniated disc, sciatica, neuropathy, presents with worsening low back pain, weakness, and incontinence. The patient reports she was diagnosed with herniated disc of L5-S1 back in August when she developed low back pain with paresthesias to the right lower extremity. She also reports intermittent urinary incontinence since then. She has not been able to follow up with neurosurgery secondary to insurance barriers, however did get a consultation from a neurosurgeon in [place] who told her they will not operate because of her diabetes. She has been seeing pain management Dr. Cline, and has received steroids injections. She has also been going to physical therapy. Recently she has been experiencing worsening low back pain since Monday 12/11, located diffusely across lumbar paraspinous muscles with radiation into the right buttocks and down the back of the right leg. She also reports weakness of the right leg, and was unable to stand on her toes Tuesday night as she has been able to do previously. She also reports worsening and more frequent urinary incontinence with occasional paresthesias in the groin. She states occasionally the toilet paper feels "foreign". She denies any recent significant injury, but 2 days ago when walking down the steps, she missed a few steps and stumbled. She has no other medical complaints at this time including no fevers/chills, headache, neck pain, chest pain, shortness of breath, abdominal pain, nausea/ vomiting, or diarrhea. Upon arrival to the ED, lumbar spine MRI showed large disc extrusion at L5-S1 central and right paracentral, extending inferior to the level of the disc space and causing significant neural impingement upon the S1 nerve root. ER discussed with neurosurgeon Dr. Worthy, recommended discharge home with close follow up, however patient did not agree with discharge and worried about establishing follow up, therefore patient admitted to observation with neurology and neurosurgery evaluation pending. CBC/BMP: 12/19/17 0241 Significant Findings Laboratory Tests Test 12/19/17 02:41 12/19/17 19:15 Stool C. difficile Toxin (PCR) POSITIVE (NEGATIVE) Imaging Last Impressions Abdomen X-Ray 12/19/17 0000 Signed Impressions: Service Date/Time: Tuesday, December 19, 2017 12:54 - CONCLUSION: Mildly nonspecific, nonobstructive bowel gas pattern which may represent a mild ileus and/or gastroenteritis. Lawrence Saab MD Lumbar Spine X-Ray 12/16/17 0000 Signed Impressions: Service Date/Time: Saturday, December 16, 2017 13:09 - CONCLUSION: Lateral fluoroscopic image demonstrates temporary probe overlying the posterior elements at superior L5 level. Jourdan Magallanes MD Chest X-Ray 12/14/17 0000 Signed Impressions: Service Date/Time: Thursday, December 14, 2017 17:38 - CONCLUSION: No acute disease. Lui Jones MD FACR Lumbar Spine MRI 12/13/17 0000 Signed Impressions: Service Date/Time: Wednesday, December 13, 2017 23:37 - CONCLUSION: 1. Large disc extrusion at L5-S1 central and right paracentral, extending inferior to the level of the disc space and causing significant neural impingement upon the S1 nerve root as it courses through the bony spinal canal. Amado Sorensen MD PE at Discharge GENERAL: This is a well-nourished, well-developed patient, in no apparent distress. CARDIOVASCULAR: Regular rate and regular rhythm without murmurs, gallops, or rubs. RESPIRATORY: Clear to auscultation. Breath sounds equal bilaterally. No wheezes , rales, or rhonchi. GASTROINTESTINAL: Abdomen soft, non-tender, nondistended. Normal, active bowel sounds MUSCULOSKELETAL: Extremities without clubbing, cyanosis, or edema. NEURO: Alert & Oriented x4 to person, place, time, situation. Moves all ext x4 Hospital Course Lumbar Radiculopathy with Disc Protrusion - Lumbar spine MRI showed large disc extrusion at L5-S1 central and right paracentral, extending inferior to the level of the disc space and causing significant neural impingement upon the S1 nerve root. -Status post Right L5-S1 hemilaminotomy with microdiscectomy; microsurgical technique on 12/16. -PT consulted. Management per neurosurgeon. -Continue pain regimen. C-diff colitis. continue Flagyl. Narcolepsy/gastroparesis/GERD -Home medication resumed. Diabetes Mellitus: with reported allergy to novolin/insulin -Appliance Tester consulted. -on insulin pump. -f/u as outpatient. Hypothyroidism: chronic -Continue home medication. Asthma: chronic, not in exacerbation -continue albuterol prn DVT Prophylaxis: teds/SCDs Pt Condition on Discharge: Fair Discharge Disposition: Discharge Home Discharge Time: <= 30 minutes Discharge Instructions DIET: Follow Instructions for: Heart Healthy Diet, Diabetic Diet Sujey Aleman MD Dec 20, 2017 09:46
[2017-12-20 12:00] VITALS: BP 113/68; PULSE 105; RESP 17; TEMP 98.5; O2SAT 98
[2017-12-20 16:00] VITALS: BP 101/61; PULSE 98; RESP 16; TEMP 98.1; O2SAT 98
[2017-12-20] MEDS: ONDANSETRON HCL 4 MG/2 ML VIAL IV PUSH PRN (16:45)
[2017-12-20 20:00] VITALS: BP 116/63; PULSE 101; RESP 16; TEMP 98.6; O2SAT 97
[2017-12-21] VITALS: BP 115/62; PULSE 92; RESP 16; TEMP 98.6; O2SAT 98
[2017-12-21] MEDS: oxyCODONE/ACETAMINOPHEN 5 MG/325 MG TAB PO PRN ×2 (01:26→06:10)
[2017-12-21] MEDS: CYCLOBENZAPRINE HCL 10 MG TAB PO PRN (01:26)
[2017-12-21] MEDS: ONDANSETRON HCL 4 MG/2 ML VIAL IV PUSH PRN (01:27)
[2017-12-21 04:00] VITALS: BP 112/65; PULSE 92; RESP 16; TEMP 98.6; O2SAT 94
[2017-12-21] MEDS: SODIUM CHLOR 0.9% 1000 ML INJ 1,000 ML IV SCH (04:59)
[2017-12-21] MEDS: LEVOTHYROXINE SODIUM 75 MCG TAB PO SCH (06:10)
[2017-12-21] MEDS: LEVOTHYROXINE SODIUM 100 MCG TAB PO SCH (06:10)
[2017-12-21] MEDS: metroNIDAZOLE 500 MG TAB PO SCH (06:10)
[2017-12-21 08:00] VITALS: BP 79/54; PULSE 85; RESP 18; TEMP 98.2; O2SAT 95
[2017-12-21] MEDS ORDERED: GETGO ROLLING W1 MI1 (08:52)
[2017-12-21] MEDS ORDERED: ZOFR4TAB PO (08:53)
--- NOTE | 2017-12-21 08:54 | HHI.PR ---
Subjective Remarks in no acute distress. pain is controlled. diarrhea has improved. Objective Vitals Vital Signs Date Time Temp Pulse Resp B/P (MAP) Pulse Ox O2 Delivery O2 Flow Rate FiO2 12/21/17 04:00 98.6 92 16 112/65 (81) 94 12/21/17 00:00 98.6 92 16 115/62 (79) 98 12/20/17 20:00 98.6 101 16 116/63 (80) 97 12/20/17 16:00 98.1 98 16 101/61 (74) 98 12/20/17 12:00 98.5 105 17 113/68 (83) 98 I/O 12/20/17 12/20/17 12/20/17 12/21/17 12/21/17 12/21/17 07:00 15:00 23:00 07:00 15:00 23:00 Intake Total 1815 ml 1240 ml Balance 1815 ml 1240 ml Intake Oral 840 ml 240 ml IV Total 975 ml 1000 ml # Voids 1 2 2 # Bowel Movements 0 0 Result Diagram: 12/19/17 0241 Imaging Last Impressions Abdomen X-Ray 12/19/17 0000 Signed Impressions: Service Date/Time: Tuesday, December 19, 2017 12:54 - CONCLUSION: Mildly nonspecific, nonobstructive bowel gas pattern which may represent a mild ileus and/or gastroenteritis. Lawrence Saab MD Lumbar Spine X-Ray 12/16/17 0000 Signed Impressions: Service Date/Time: Saturday, December 16, 2017 13:09 - CONCLUSION: Lateral fluoroscopic image demonstrates temporary probe overlying the posterior elements at superior L5 level. Jourdan Magallanes MD Chest X-Ray 12/14/17 0000 Signed Impressions: Service Date/Time: Thursday, December 14, 2017 17:38 - CONCLUSION: No acute disease. Lui Jones MD FACR Lumbar Spine MRI 12/13/17 0000 Signed Impressions: Service Date/Time: Wednesday, December 13, 2017 23:37 - CONCLUSION: 1. Large disc extrusion at L5-S1 central and right paracentral, extending inferior to the level of the disc space and causing significant neural impingement upon the S1 nerve root as it courses through the bony spinal canal. Amado Sorensen MD Objective Remarks GENERAL: This is a well-nourished, well-developed patient, in no apparent distress. CARDIOVASCULAR: Regular rate and regular rhythm without murmurs, gallops, or rubs. RESPIRATORY: Clear to auscultation. Breath sounds equal bilaterally. No wheezes , rales, or rhonchi. GASTROINTESTINAL: Abdomen soft, non-tender, nondistended. Normal, active bowel sounds MUSCULOSKELETAL: Extremities without clubbing, cyanosis, or edema. NEURO: Alert & Oriented x4 to person, place, time, situation. Moves all ext x4 Procedures Right L5-S1 hemilaminotomy with microdiscectomy; microsurgical technique. Medications and IVs Inpatient Medications Acetaminophen (Tylenol) 650 mg Q4H PRN PO TEMPERATURE > 101.5 F; Start at 17:00; Stop 12/14/17 at 17:08; Status DC Al Hydrox/Mg Hydrox/Simethicone (Mag-Al Plus Susp Liq) 30 ml Q6H PRN PO DYSPEPSIA; Start 12/16/17 at 14:45 Albuterol Sulfate (Albuterol Neb) 2.5 mg Q4HR NEB PRN NEB WHEEZING; Start 12/16 at 14:45 Amphetamine/ Dextroamphetamine (Adderall) 20 mg BID@0900,1500 PO Last administered on 12/20/17at 15:22; Start 12/20/17 at 15:15 Bisacodyl (Dulcolax Supp) 10 mg DAILY PRN RECTAL SEVERE CONSITIPATION; Start at 14:45 Cefazolin Sodium 1000 mg/Sodium Chloride 100 ml @ 200 mls/hr Q8H IV Last administered on 12/17/17at 08:07; Start 12/16/17 at 17:00; Stop 12/17/17 at 09:29 ; Status DC Chlorhexidine Gluconate (Chlorhexidine 2% Cloth) 3 pack CHAIN MAKER LOOM CONTROL PRN TOPICAL SEE LABEL COMMENTS; Start 12/16/17 at 12:45; Stop 12/19/17 at 12:44; Status DC Clonidine (Catapres) 0.1 mg Q6H PRN PO SYS BP GREATER THAN 170 MMHG; Start at 14:45 Cyclobenzaprine HCl (Flexeril) 5 mg Q8H PRN PO MUSCLE SPASM Last administered on 12/21/17at 01:26; Start 12/17/17 at 17:45 Dexamethasone Sodium Phosphate (Decadron Inj) 4 mg Q6H IV PUSH Last administered on 12/14/17at 16:13; Start 12/14/17 at 16:00; Stop 12/14/17 at 17:05 ; Status DC Dextrose (D50w (Vial) Inj) 50 ml UNSCH PRN IV PUSH HYPOGLYCEMIA-SEE COMMENTS; Start 12/14/17 at 14:00 Diazepam (Valium) 10 mg ONCE ONCE PO Last administered on 12/14/17at 04:53; Start 12/14/17 at 04:15; Stop 12/14/17 at 04:16; Status DC Gabapentin (Neurontin) 300 mg TID PO Last administered on 12/20/17at 16:38; Start 12/15/17 at 13:00 Glucagon (Glucagon Inj) 1 mg UNSCH PRN OTHER HYPOGLYCEMIA-SEE COMMENTS; Start 12/14/17 at 14:00 Ketorolac Tromethamine (Toradol Inj) 15 mg Q6H PRN IV PUSH pain scale 3-10 Last administered on 12/14/17at 14:33; Start 12/14/17 at 14:00; Stop 12/14/17 at 17:05; Status DC Lactated Ringer's 1,000 ml @ 30 mls/hr Q24H PRN IV SEE LABEL COMMENTS; Start at 12:45; Stop 12/19/17 at 12:44; Status DC Lactulose (Lactulose Liq) 30 ml DAILY PRN PO SEVERE CONSITIPATION; Start at 14:45 Levothyroxine Sodium (Synthroid) 100 mcg DAILY@0600 PO Last administered on at 06:10; Start 12/19/17 at 06:00 Magnesium Hydroxide (Milk Of Magnesia Liq) 30 ml Q12H PRN PO Mild constipation ; Start 12/16/17 at 14:45 Menthol ([place]) 1 lozenge UNSCH PRN BUCCAL SORE THROAT; Start 12/16/17 at 14:45 Metoprolol Tartrate (Lopressor) 25 mg CHAIN MAKER LOOM CONTROL PRN PO SEE LABEL COMMENTS; Start 12/16/17 at 12:45; Stop 12/19/17 at 12:44; Status DC Metronidazole (Flagyl) 500 mg Q8HR PO Last administered on 12/21/17at 06:10; Start 12/19/17 at 23:15 Miscellaneous (Pill Splitter) 1 ea UNSCH PRN OTHER SEE LABEL COMMENTS; Start at 17:45 Miscellaneous Information ALL NURSING DEPARTME... UNSCH PRN .XX SEE LABEL COMMENTS; Start 12/16/17 at 14:47; Stop 12/17/17 at 14:46; Status DC Morphine Sulfate (Morphine Inj) 2 mg Q2H PRN IV PUSH breakthrough pain> 6 Last administered on 12/17/17at 22:30; Start 12/16/17 at 14:45 Naloxone HCl (Narcan Inj) 0.4 mg UNSCH PRN IV PUSH SEE LABEL COMMENTS; Start at 04:15 Ondansetron HCl (Zofran Inj) 4 mg Q6H PRN IV PUSH NAUSEA OR VOMITING Last administered on 12/21/17at 01:27; Start 12/16/17 at 14:45 Oxycodone/ Acetaminophen (Percocet 5-325 Mg) 2 tab Q4H PRN PO PAIN SCALE 6 TO 10 Last administered on 12/21/17at 06:10; Start 12/16/17 at 14:45 Pantoprazole Sodium (Protonix) 40 mg DAILY PO Last administered on 12/20/17at 09 :08; Start 12/16/17 at 09:00 Patient Own Medication PT OWN MED: INSU... DAILY SQ ; Start 12/15/17 at 12:15; Status Future Hold Povidone Iodine (Betadine 5% Antisepsis Kit) 1 applic CHAIN MAKER LOOM CONTROL PRN EACH NARE SEE LABEL COMMENTS; Start 12/16/17 at 12:45; Stop 12/19/17 at 12:44; Status DC Prednisone (Deltasone) 60 mg ONCE ONCE PO ; Start 12/14/17 at 04:15; Stop 12/14 at 04:16; Status DC Promethazine HCl (Phenergan Inj) 25 mg Q4H PRN IM NAUSEA OR VOMITING Last administered on 12/18/17at 02:34; Start 12/16/17 at 14:45 Ramipril (Altace) 10 mg BID PO Last administered on 12/18/17at 21:59; Start at 21:00; Status Future Hold Senna/Docusate Sodium (Ivory-Colace) 1 tab BID PRN PO MILD CONSTIPATIN; Start at 17:45 Sennosides (Senokot) 17.2 mg Q12H PRN PO Moderate constipation; Start 12/16/17 at 14:45 Sodium Hyaluronate/ Chondriotin Sulf (Viscoat Opth Irr) 0.75 ml ONCE ONCE RIGHT EYE Last administered on 12/16/17at 20:04; Start 12/16/17 at 19:45; Stop 12/16/17 at 19:46; Status DC Sodium Chloride 1,000 ml @ 100 mls/hr Q10H IV Last administered on 12/21/17at 04:59; Start 12/18/17 at 12:30 Sodium Chloride (NS Flush) 2 ml BID IV FLUSH Last administered on 12/19/17at 09: 52; Start 12/16/17 at 21:00 Vancomycin HCl 1000 mg/Sodium Chloride 250 ml @ 250 mls/hr CHAIN MAKER LOOM CONTROL IV ; Start 12/15/17 at 14:30; Stop 12/18/17 at 14:29; Status DC Zolpidem Tartrate (Ambien) 5 mg HS PRN PO INSOMNIA; Start 12/16/17 at 21:00 A/P Problem List: (1) Lumbar disc disease with radiculopathy ICD Code: M51.16 - Intervertebral disc disorders with radiculopathy, lumbar region Status: Acute Assessment and Plan Lumbar Radiculopathy with Disc Protrusion - Lumbar spine MRI showed large disc extrusion at L5-S1 central and right paracentral, extending inferior to the level of the disc space and causing significant neural impingement upon the S1 nerve root. -Status post Right L5-S1 hemilaminotomy with microdiscectomy; microsurgical technique on 12/16. -PT consulted. Management per neurosurgeon. -Continue pain regimen. C-diff colitis-improving. continue Flagyl. Narcolepsy/gastroparesis/GERD -Home medication resumed. Diabetes Mellitus: with reported allergy to novolin/insulin -Auto Job Estimator consulted. -on insulin pump. -f/u as outpatient. Hypothyroidism: chronic -Continue home medication. Asthma: chronic, not in exacerbation -continue albuterol prn DVT Prophylaxis: teds/SCDs Discharge Planning dc home today. f/u; pcp, neurosurgery and endocrinology. see med list. d/w the patient and case management. Sujey Aleman MD Dec 21, 2017 08:54
[2017-12-21] MEDS: SODIUM CHLORIDE 0.9% FLUSH 10 ML FLUSH IV FLUSH SCH (09:00)
[2017-12-21] MEDS: GABAPENTIN 300 MG CAP PO SCH (09:10)
[2017-12-21] MEDS: PANTOPRAZOLE SOD 40 MG DELAYED RELEASE TAB PO SCH (09:10)
[2017-12-21] MEDS: DEXTROAMPHETAMINE/AMPHETAMINE 20 MG TAB PO SCH (09:10)
== END 2017-12-21 12:04 | disposition home or self-care (01) | DRG 519 ==
LOC: NED 14:43 → NEDA 12-14 04:14 → H6YA 12-14 08:54 → OBSVTOIN 12-16 11:01 → N06B 12-16 16:01 → N07B 12-20 01:02 → N06B 12-20 01:17 → N07B 12-20 02:14
PROVIDERS: ADMIT Internal Medicine; ATTEND Internal Medicine
PROC: 01NB0ZZ Release Lumbar Nerve, Open Approach (ICD-10-PCS; 2017-12-16)
PROC: 0SB40ZZ Excision of Lumbosacral Disc, Open Approach (ICD-10-PCS; principal; 2017-12-16 12:51)
DX: M51.17 Intervertebral disc disorders with radiculopathy, lumbosacral region (principal); A04.72 Enterocolitis due to Clostridium difficile, not specified as recurrent; E10.22 Type 1 diabetes mellitus with diabetic chronic kidney disease; E10.43 Type 1 diabetes mellitus with diabetic autonomic (poly)neuropathy; M32.9 Systemic lupus erythematosus, unspecified; K31.84 Gastroparesis; E10.65 Type 1 diabetes mellitus with hyperglycemia; I12.9 Hypertensive chronic kidney disease with stage 1 through stage 4 chronic kidney disease, or unspecified chronic kidney disease; N39.3 Stress incontinence (female) (male); N18.9 Chronic kidney disease, unspecified; J45.909 Unspecified asthma, uncomplicated; E10.319 Type 1 diabetes mellitus with unspecified diabetic retinopathy without macular edema; K21.9 Gastro-esophageal reflux disease without esophagitis; E06.3 Autoimmune thyroiditis; T38.0X5A Adverse effect of glucocorticoids and synthetic analogues, initial encounter; D72.829 Elevated white blood cell count, unspecified; G47.419 Narcolepsy without cataplexy; Z79.4 Long term (current) use of insulin; Z83.3 Family history of diabetes mellitus; Z84.1 Family history of disorders of kidney and ureter; Z87.891 Personal history of nicotine dependence; Z96.41 Presence of insulin pump (external) (internal)
CPT/HCPCS: 71046; 72020; 72148; 74018; 76000; 80048; 81001; 82947; 82948; 84702; 85025; 85610; 85730; 87493; 93005; 94150; 96374; 96375; 96376; 99285; G0378; J0690; J1030; J1100; J1885; J2175; J2250; J2270; J2370; J2405; J2550; J2710; J3010; J3370; J7030; J7040; J7050; J7120

== ENCOUNTER → 2017-12-26 | Outpatient (CLI) | payer MEDICAID ==
[~2017-12-26] MED LIST changes: +CYCL10TA PO; -DICL1GEL7 TOPICAL; +GETGO ROLLING W1 MI1; -LIOT5TAB3 PO; +METR-1 PO; +OXYC1TAB63 PO; -PERC5TAB12 PO; -RAMI10CA PO; +ZOFR4TAB PO; -ZOFR4TAB3 SL
== END ==
LOC: HORT 14:08
PROVIDERS: ATTEND Neurological Surgery
DX: Z98.890 Other specified postprocedural states (principal); Z47.89 Encounter for other orthopedic aftercare
CPT/HCPCS: L0627